=== PATIENT | female | born 1970 | race Caucasian/White ===

== ENCOUNTER → 2018-02-01 10:04 | Outpatient (CLI) | payer OTHER, SELFPAY ==
[2018-02-02 13:27] LABS: HPV Reflexed? NOT INDICATED
== END ==
PROVIDERS: Visit Provider Obstetrics & Gynecology
DX: Z12.4 Encounter for screening for malignant neoplasm of cervix (principal)
CPT/HCPCS: 88175; G0145

== ENCOUNTER → 2018-02-18 08:32 | Outpatient (CLI) | payer OTHER, SELFPAY ==
--- NOTE | 2018-02-18 08:37 | BI_ITS ---
MAMMOGRAPHY - BILATERAL SCREENING 3-D LUPE SYNTHESIS REASON FOR EXAM: Female, 47 years old. Bilateral Screening 3-D tomosynthesis PERTINENT HISTORY: No significant family history. TECHNIQUE: 2-D mammograms and 3-D Lupe synthesis of the breast (s) were performed. CAD was performed. COMPARISON: None. FINDINGS: The breast composition is heterogeneously dense that can obscure small breast masses. Scattered benign calcifications are seen. No dense spiculated masses or suspicious microcalcifications are identified. No architectural distortion is identified. There is no skin thickening or retraction. There has been no significant change since the prior study. BI/SCREENING MAMM (CAD), BILAT IMPRESSION: No mammographic signs of malignancy. Routine yearly mammograms recommended. ASSESSMENT CATEGORY: BIRADS Category 2: Benign. A letter regarding these results will be sent to the patient by the facility within 30 days. FOLLOW UP RECOMMENDATION: Yearly follow up mammogram recommended. (A) Approximately 10% of breast cancers are not detected by mammography. A normal mammogram should not delay biopsy of a clinically suspicious abnormality. Electronically Signed: Ruslan Marie MD at 10:00 EDT , Service support ,
== END ==
PROVIDERS: Visit Provider Obstetrics & Gynecology
DX: Z12.31 Encounter for screening mammogram for malignant neoplasm of breast (principal)
CPT/HCPCS: 77063; 77067

== ENCOUNTER → 2020-01-31 16:38 | Outpatient (CLI) | payer OTHER, SELFPAY ==
[2020-01-31 14:15] VITALS: BMI 37.5
[2020-02-09 01:04] LABS: HPV APTIMA, High Risk Negative (Negative)
== END ==
PROVIDERS: Referring Provider Nurse Practitioner Women's Health; Visit Provider Nurse Practitioner Women's Health
DX: Z12.4 Encounter for screening for malignant neoplasm of cervix (principal)
CPT/HCPCS: 87624; 88175; G0145

== ENCOUNTER → 2020-02-06 12:22 | Outpatient (CLI) | payer OTHER, SELFPAY ==
[2020-01-31 14:15] VITALS: BMI 37.5
--- NOTE | 2020-02-06 12:23 | BI_ITS ---
MAMMOGRAPHY - BILATERAL SCREENING REASON FOR EXAM: Female, 49 years old. Routine annual screening examination. PERTINENT HISTORY: Non-contributory. TECHNIQUE: Digital bilateral breast lupe (3D mammographic acquisition) in the CC and MLO projections. 2-D mediolateral oblique (MLO) and craniocaudad (CC) views of both breasts were obtained. CAD: Full Field Digital Mammography with Computer Added Detection was performed. COMPARISON: Comparison is made with prior study dated February 18, 2018 and December 27, 2012. FINDINGS: Breast Composition: The breasts are heterogeneously dense, which may obscure small masses. There are no dominant masses or suspicious calcifications. Stable benign-appearing bilateral axillary lymph nodes. No other significant abnormalities are identified. There has been no significant change since the prior study. BI/SCREEN MAMM (CAD) W/LUPE BILAT IMPRESSION: Stable bilateral screening mammogram. Yearly follow-up mammogram recommended. (A) ASSESSMENT CATEGORY: BIRADS Category 2: Benign. A letter regarding these results will be sent to the patient by the facility within 30 days. Approximately 10% of breast cancers are not detected by mammography. A normal mammogram should not delay biopsy of a clinically suspicious abnormality. [id number] Electronically Signed: Rodger Willson, at 14:15 EDT , Service support ,
--- NOTE | 2020-02-06 12:23 | US_ITS ---
STUDY: ULTRASOUND TRANSVAGINAL CLINICAL: Female, 49 years old. MENORRHAGIA W/ IRREGULAR CYCLE TECHNIQUE: Transvaginal COMPARISON: None. FINDINGS: Normal uterine size measuring 10.6 x 6.7 x 5.3 cm. The uterus is heterogeneous in echogenicity. There are 2 possible fibroids measuring 1.5 x 2.0 x 1.3 cm and 1.3 x 1.2 x 1.0 cm respectively. The endometrium is thickened measuring up to 16 mm, and is echogenic. There are no endometrial masses, and there is no fluid in the endometrial cavity. There are cervical nabothian cysts, the largest measuring 1.4 x 1.5 cm. Normal right ovary, measuring 3.1 x 2.5 x 2.1 cm. Left ovary measures 3.0 x 2.8 x 1.9 cm. There is a left ovarian cyst measuring 2.5 x 2.2 x 1.6 cm. There is no free fluid in the pelvis. Polycystic ovary disease: No. US/Pelvic (Non ) IMPRESSION: 2 possible uterine fibroids measuring 1.5 x 2.0 x 1.3 cm and 1.3 x 1.2 x 1.0 cm respectively. Thickened echogenic endometrium measuring up to 16 mm. Cervical nabothian cysts, the largest measuring 1.4 x 1.5 cm. There is a left ovarian cyst measuring 2.5 x 2.2 x 1.6 cm. Electronically Signed: Taco Potter MD at 19:43 EDT , Service support ,
--- NOTE | 2020-02-06 12:23 | US_ITS ---
STUDY: ULTRASOUND TRANSVAGINAL CLINICAL: Female, 49 years old. MENORRHAGIA W/ IRREGULAR CYCLE TECHNIQUE: Transvaginal COMPARISON: None. FINDINGS: Normal uterine size measuring 10.6 x 6.7 x 5.3 cm. The uterus is heterogeneous in echogenicity. There are 2 possible fibroids measuring 1.5 x 2.0 x 1.3 cm and 1.3 x 1.2 x 1.0 cm respectively. The endometrium is thickened measuring up to 16 mm, and is echogenic. There are no endometrial masses, and there is no fluid in the endometrial cavity. There are cervical nabothian cysts, the largest measuring 1.4 x 1.5 cm. Normal right ovary, measuring 3.1 x 2.5 x 2.1 cm. Left ovary measures 3.0 x 2.8 x 1.9 cm. There is a left ovarian cyst measuring 2.5 x 2.2 x 1.6 cm. There is no free fluid in the pelvis. Polycystic ovary disease: No. US/Transvaginal Non- IMPRESSION: 2 possible uterine fibroids measuring 1.5 x 2.0 x 1.3 cm and 1.3 x 1.2 x 1.0 cm respectively. Thickened echogenic endometrium measuring up to 16 mm. Cervical nabothian cysts, the largest measuring 1.4 x 1.5 cm. There is a left ovarian cyst measuring 2.5 x 2.2 x 1.6 cm. Electronically Signed: Taco Potter MD at 19:43 EDT , Service support ,
== END ==
PROVIDERS: Referring Provider Nurse Practitioner Women's Health; Visit Provider Nurse Practitioner Women's Health
DX: N92.1 Excessive and frequent menstruation with irregular cycle (principal); Z12.31 Encounter for screening mammogram for malignant neoplasm of breast
CPT/HCPCS: 76830; 76856; 77063; 77067

== ENCOUNTER 2020-03-12 10:27 | Day surgery (SDC) | payer OTHER, SELFPAY ==
[2020-02-23 13:27] VITALS: BMI 37.5
[2020-02-28 08:47] VITALS: BMI 37.5
[2020-03-12] VITALS (7 sets, daily range): BP systolic 143–169; BP diastolic 85–105; PULSE 68–97; RESP 16–18; TEMP 36.9–37.3; O2SAT 97–100; BMI 37.3
--- NOTE | 2020-03-12 06:33 | PCM.HPOB.BLA ---
- Problem List (1) Menorrhagia with irregular cycle Status: Acute Comment: d and c hysterosocpy kate ablation. 11 cm uterus. mele History and Physical Date of Admission: 03/12/20 Intake Vital Signs 02/23/20 Height 5 ft 8 in 02/23/20 Weight: 248 lb 02/23/20 BMI 37.7 02/23/20 BP 130/74 H Intake Visit Reasons: preop D&C Wrapper Rewinder Required: No Is patient in pain?: No Allergies No Known Allergies Allergy (Verified 02/23/20 11:45) Medications norethindrone acetate 5 mg tablet 5 mg PO .COMPLEX #45 tab 02/24/20 [Rx Confirmed 02/24/20] Is last menstrual period known: No Post menopausal: No Patient : No : No PFSH Surgical History History of tonsillectomy (Acute) History of tubal ligation (Acute) Family History Grandfather Heart disease Mother Heart disease Social History (Updated 02/25/20 @ 06:[address] 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 She was evaluated by Stacia Arias and had been unable to get cervical sampling due to stenosis. Uterus appears mildly enlarged with 2 small fibroids under 2 cm each and a thickened lining overall 11 cm uterine size. She has cycles that can be irregular and heavy lasting 7 to 10 days. Female Reproductive History Cycle Length: 21-35 Bleeding Duration: 7 Questions: Metorrhagia: No, Sexually active: Yes, Dyspareunia: No, PCB: No Pregancy History 3 Elective abortions Hx Para 2 Spontaneous abortions 1 Hx # Term Pregnancies 2 Ectopic pregnancies Hx # Pregnancies Multiple births # of living children 2 Past Pregnancies Del. Date Name GA/Weeks Outcome Route Bth Weight Infant Gen [facility] FOB 11/02/00 [place] Male 10/21/07 [place] Female ROS Const Constitutional: Denies fatigue, fever(s), headache(s), increased appetite, poor appetite, weight gain or weight loss : Reports as per HPI; denies difficulty urinating, painful urination, urinary frequency, urinary incontinence, urinary hesitancy, urinary urgency, vaginal discharge, vaginal dryness, vaginal odor or vaginal itching Exam Const General: cooperative, healthy appearing, comfortable, no acute distress, well developed Nutritional Appearance: average body habitus Orientation: alert HENMT Head: normal to inspection, normocephalic Ears: hearing grossly normal bilaterally, external ears normal Nose: external nose normal, nares normal Face and sinus: normal facial exam Neck Neck: normal visual inspection, no lymphadenopathy, trachea midline Thyroid: thyroid normal Resp Effort & Inspection: normal respiratory effort General: bladder normal to palpation External Female Exam: normal external appearance, normal appearance of the urethra Urethra: normal appearance of the urethra, normal palpation Speculum Exam - Vagina: normal appearance of the vagina, vaginal bleeding Speculum Exam - Cervix: normal appearance of the cervix, nontender Bimanual Exam- Vagina & Uterus: normal bimanual exam, uterine size normal, bladder normal to palpation, uterine shape normal, No cervical tenderness, uterine mobility normal, uterine consistency normal, normal cervical palpation, uterus non-tender Bimanual Exam- Adnexa, other: normal adnexae, adnexae mobile, no adnexal masses, pelvic support normal Pelvic Support: normal OB/External & Speculum: vaginal bleeding Speculum Exam: vaginal bleeding Musc Other: gross motor intact no deficits, full bilateral strength Skin General: no rashes or lesions noted Neuro Motor: muscle tone normal throughout Assessment & Plan Problems 1. Menorrhagia with irregular cycle N92.1 d and c hysterosocpy kate ablation Plan Both medical and surgical options were discussed with the patient and patient wishes to proceed with ablation. It was discussed that due to her cervical stenosis we were unable to sample the lining prior to ablation therefore if her D&C specimen comes back abnormal she may need additional surgery or treatments. Patient wishes to proceed with ablation.After discussing the patient's diagnosis and treatment plan options, patient wishes to proceed with surgical management. I have discussed with the patient the risks, benefits, and alternatives of the procedure which include but are not limited to risks of anesthesia, bleeding, infection, possible damage to bowel, bladder, or surrounding vasculature which could lead to additional surgery to evaluate any complications. Patient agrees to procedure and wishes to proceed. ACOG/uptodate references given for additional information regarding procedure. Medications Refilled: norethindrone acetate (Aygestin) 5 mg PO tid until bleeding stops X 24 hr then bid to finish Rx 45 tabs 0RF Coding Level of Care Code Off vis,est,level 4 Diagnoses Menorrhagia with irregular cycle N92.1 UPDATE- I have seen the patient and performed any clinically relevant updates to the history and physical exam. Marjorie Rivero MD
[2020-03-12 10:48] LABS: Internal QC Validated? YES +Cl - CLEAR BKGD; Pregnancy, Urine Negative Negative
[2020-03-12 11:05] LABS: Hematocrit 38.1 % (37-47); Hemoglobin 12.1 g/dL (12.0-15.0); Mean Corp Hgb Conc 31.8 g/dL (32-36); Mean Corpuscular Hgb 25.6 pg (27.0-32.0); Mean Corpuscular Volume 80.5 fL (81-99); Mean Platelet Vol. 9.9 fl (6.2-12.0); Platelet Count 365 K/mm3 (150-450); RBC Distribution Width CV 14.3 % (11.6-14.6); RBC Distribution Width SD 41.2 fl (35.1-43.9); Red Blood Count 4.73 M/mm3 (4.2-5.4); White Blood Count 7.9 K/mm3 (4.4-11.0)
[2020-03-12] MEDS: Lactated Ringers 1,000 ML 100 ML IV (11:06)
--- NOTE | 2020-03-12 11:11 | OP.PCM_ITS ---
Problem List (1) Menorrhagia with irregular cycle Status: Acute Comment: d and c hysterosocpy carole ablation. 11 cm uterus. leo Report of Operation Date of Procedure: 03/12/20 Pre-Operative Diagnosis: AUB Post-Operative Diagnosis: same Surgery/Procedure Performed:: d and c hysteroscopy carole Description of Surgical Findings:: polypoid thickened lining Type of Anesthesia:: Local MAC Special Medications: none Specimen's removed: emc Drains: none Estimated Blood Loss (mL): minimal Fluids Replaced: crystalloid Description of Procedure: Patient was prepped and draped in a normal sterile fashion under MAC anesthesia. A weighted speculum was placed in the vagina and the anterior lip of the cervix was grasped with a single-tooth tenaculum. A paracervical block was placed with 1% lidocaine. Cervix was progressively dilated to allow passage of a 5 mm hysteroscope. The lining was fully visualized and noted to have a thickened polypoid lining. Uterine sounded to 10 cm. Curettage was performed and large amount of tissue was removed, sent to pathology. The Carole device was opened and the cavity length was found to be 5.5 cm. Device was inserted into the u terus and balloon inflated and device deployed. Integrity of the cavity was confirmed and a 2 minute treatment cycle was completed without complication. All instruments were removed from the vagina and excellent hemostasis was noted. Patient was awoken and taken to recovery in stable condition. Grafts/Implants Used: none - Complications none - Admit VTE Documentation VTE Present on Admission: No VTE Mechan Device Prophylaxis: SCD's Multi Select Codes - Urinary/Genital Urinary/Genital CPT Codes: 55743 Carole/Novasure, 16096 Hysteroscopy,EMC, Polypectomy
--- NOTE | 2020-03-12 11:13 | PCM.DC.D&C ---
Discharge Diet: No Restrictions Discharge Activity: Return to Normal Activity, May Shower, May Take a Tub Bath Allergies/Adverse Reactions: Allergies No Known Allergies Allergy (Verified 03/12/20 10:45) Medications to take at Discharge Norethindrone Acetate 5 mg PO DAILY 03/05/20 Orders to be completed after discharge: Type & Screen - PAT ONLY Time Frame: 03/12/20, Facility: [facility], Location: Laboratory Primary Care Physician: Care Physician,No Primary [Primary Care Provider] - Test Results: Test results from this visit will be discussed in further detail at your follow-up appointment, if applicable. Please Follow Up With: Marjorie Rivero MD - [phone]
--- NOTE | 2020-03-12 12:10 | EMB_PTH ---
PATIENT: LORETTA LEMUS LOC: [facility] – [place] U#:[id number] AGE/SX: 49/F ROOM: RE03/12/[address]: Dr. Marjorie Rivero MD : 1970 BED: DIS: 03/12/2020 SPEC #: [id number] RECD: 03/12/20 14:32 STATUS: FARRAH IVA #: [id number] AVELINO: 03/12/20 12:[address]: Marjorie Rivero DEPT: SURGICAL PATHOLOGY RECD BY: Esteban Villareal ENTERED: 03/13/20 08:52 SP TYPE: ENDOM BX/C GINA DR: No Primary Care Phys Tissues: Endometrium, NOS Procedures: Surgery Specimen Level IV HEADER OPERATION: Hysteroscopy, D & C, Tyrell PRE-OP DIAGNOSIS: Abnormal uterine bleeding TISSUE SUBMITTED: Endometrial curettage MICROSCOPIC DIAGNOSIS Endometrial curettings: Extensive exogenous hormone effects. Focal area of secretory endometrium and blood clots. SJ:franck 03/14/20 MICROSCOPIC DESCRIPTION Slides are reviewed. GROSS DESCRIPTION Received in fixative is one container labeled with the patient's name and designated C. The specimen consists of multiple fragments of bahena hemorrhagic soft tissue mixed with polypoid tissue that in aggregate measure 4 x 4 x 1.5 cm. The entire specimen is submitted in six cassettes. / CLIFTON:franck 03/13/20 TC:5 CPT: 49153
[2020-03-12] MEDS: HYDROcodone Bitartrate/Apap 5/325 Tablet PO ×2 (13:48→13:59)
== END 2020-03-12 14:16 | disposition home or self-care (01) ==
LOC: SDC 10:27 → AC 10:28
PROVIDERS: Anesthesiology; Referring Provider Obstetrics & Gynecology; Visit Provider Obstetrics & Gynecology
PROC: 0U5B8ZZ Destruction of Endometrium, Via Natural or Artificial Opening Endoscopic (ICD-10-PCS; CPT 58558; principal; 2020-03-12 11:55)
DX: N92.1 Excessive and frequent menstruation with irregular cycle (principal); D25.9 Leiomyoma of uterus, unspecified; Z79.3 Long term (current) use of hormonal contraceptives; Z98.51 Tubal ligation status; Z82.49 Family history of ischemic heart disease and other diseases of the circulatory system
CPT/HCPCS: 58563; 81025; 85027; 86850; 86900; 86901; 87635; 88305; 94799; J7120; J2405; U0003

== ENCOUNTER → 2021-02-10 08:34 | Outpatient (CLI) | payer OTHER, SELFPAY ==
[2020-03-28 16:32] VITALS: BMI 37.3
--- NOTE | 2021-02-10 08:36 | BI_ITS ---
MAMMOGRAPHY - BILATERAL SCREENING REASON FOR EXAM: Female, 50 years old. Routine annual screening examination. PERTINENT HISTORY: Non-contributory. TECHNIQUE: Digital bilateral breast lupe (3D mammographic acquisition) in the CC and MLO projections. 2-D mediolateral oblique (MLO) and craniocaudad (CC) views of both breasts were obtained. CAD: Full Field Digital Mammography with Computer Added Detection was performed. COMPARISON: Comparison is made with prior study dated 02/06/2020 and 02/18/2018. FINDINGS: Breast Composition: The breasts are heterogeneously dense, which may obscure small masses. There are no dominant masses or suspicious calcifications. Stable small benign-appearing bilateral axillary lymph nodes. No other significant abnormalities are identified. There has been no significant change since the prior study. BI/SCRN MAMM (CAD)W/LUPE BILAT IMPRESSION: Stable bilateral screening mammogram. Yearly follow-up mammogram recommended. (A) ASSESSMENT CATEGORY: BIRADS Category 2: Benign. A letter regarding these results will be sent to the patient by the facility within 30 days. Approximately 10% of breast cancers are not detected by mammography. A normal mammogram should not delay biopsy of a clinically suspicious abnormality. [id number] Electronically Signed: Rodger Willson MD at 9:17 EDT , Service support ,
== END ==
PROVIDERS: Referring Provider Internal Medicine; Visit Provider Internal Medicine
DX: Z12.31 Encounter for screening mammogram for malignant neoplasm of breast (principal)
CPT/HCPCS: 77063; 77067

== ENCOUNTER → 2022-02-20 | Outpatient (CLI) | payer OTHER, SELFPAY ==
--- NOTE | 2022-02-20 10:55 | BI_ITS ---
MAMMOGRAPHY - BILATERAL SCREENING REASON FOR EXAM: Female, 51 years old. Routine annual screening examination. PERTINENT HISTORY: Non-contributory. TECHNIQUE: Digital bilateral breast lupe (3D mammographic acquisition) in the CC and MLO projections. 2-D mediolateral oblique (MLO) and craniocaudad (CC) views of both breasts were obtained. CAD: Full Field Digital Mammography with Computer Added Detection was performed. COMPARISON: Comparison is made with prior study dated 02/10/2021 and 02/06/2020. FINDINGS: Breast Composition: The breasts are heterogeneously dense, which may obscure small masses. There are no dominant masses or suspicious calcifications. Stable small benign appearing bilateral axillary lymph nodes. No other significant abnormalities are identified. There has been no significant change since the prior study. BI/SCRN MAMM (CAD)W/LUPE BILAT IMPRESSION: Stable bilateral screening mammogram. Yearly follow-up mammogram recommended. (A) ASSESSMENT CATEGORY: BIRADS Category 2: Benign. A letter regarding these results will be sent to the patient by the facility within 30 days. Approximately 10% of breast cancers are not detected by mammography. A normal mammogram should not delay biopsy of a clinically suspicious abnormality. [id number] Electronically Signed: Rodger Willson MD at 12:51 EDT ,
== END | disposition home or self-care (01) ==
LOC: OPBI 10:54
PROVIDERS: PCP Internal Medicine; Visit Provider Internal Medicine
DX: Z12.31 Encounter for screening mammogram for malignant neoplasm of breast (principal)
CPT/HCPCS: 77063; 77067

== ENCOUNTER → 2022-09-09 | Outpatient (CLI) | payer OTHER, SELFPAY ==
--- NOTE | 2022-09-09 06:55 | CT_ITS ---
STUDY: CT MAXILLOFACIAL SINUSES REASON FOR EXAM: Female, 51 years old. CHRONIC SINUSITIS RADIATION DOSAGE (If Supplied By Facility): CTDIvol = ( 33.06 ) mGy, DLP = ( 817.32 ) mGycm TECHNIQUE: The patient was scanned in a multi detector CT scanner. High resolution axial imaging was performed without the administration of intravenous contrast material. Sagittal and coronal images were reconstructed. Individualized dose optimization techniques were used for this CT. COMPARISON: None. FINDINGS: Small bilateral submental lymph nodes. FRONTAL SINUSES: Opacification of the frontal sinuses. ETHMOIDAL SINUSES: Opacification of the ethmoid sinuses bilaterally. MAXILLARY SINUSES: Mucosal thickening of the maxillary sinuses bilaterally more prominent on the right side. SPHENOIDAL SINUSES: Mild degree of mucosal thickening of the sphenoid sinuses. There is compromise of the bilateral maxillary infundibula due to mucosal hypertrophy worse on the right side. Normal bilateral middle turbinates. Normal bilateral inferior turbinates. Normal midline nasal septum. There is patency of the bilateral nasal airways. The visualized osseous structures are normal. The visualized bilateral orbital contents are normal. CT/Sinus/Facial Bone IMPRESSION: SMITH sinusitis. Electronically Signed: Rodger Willson MD at 14:43 EST ,
== END | disposition home or self-care (01) ==
PROVIDERS: PCP Internal Medicine; Referring Provider Otolaryngology; Visit Provider Otolaryngology
DX: J32.8 Other chronic sinusitis (principal); J33.0 Polyp of nasal cavity
CPT/HCPCS: 70486

== ENCOUNTER 2022-12-28 09:55 | Day surgery (SDC) | payer OTHER, SELFPAY ==
[2022-12-24 13:52] LABS: Hematocrit 40.5 % (37-47); Hemoglobin 13.7 g/dL (12.0-15.0); Mean Corp Hgb Conc 33.8 g/dL (32-36); Mean Corpuscular Hgb 28.4 pg (27.0-32.0); Mean Platelet Vol. 9.4 fl (6.2-12.0); Platelet Count 315 K/mm3 (150-450); RBC Distribution Width CV 12.8 % (11.6-14.6); RBC Distribution Width SD 38.5 fl (35.1-43.9); Red Blood Count 4.82 M/mm3 (4.2-5.4); White Blood Count 9.8 K/mm3 (4.4-11.0)
[2022-12-24 14:15] LABS: Anion Gap 8 (5-15); BUN 20 mg/dL (7-18); BUN/Creat Ratio 28.2 RATIO (10-20); Calcium,Total 9.1 mg/dL (8.5-10.1); Chloride 108 mmol/L (98-107); Creatinine, Serum 0.71 mg/dL (0.55-1.02); EST Glomerular Filtration Rate 92 mL/min (>60); Est Glom Filt Rate - Afr Amer 112 mL/min (>60); Glucose 100 mg/dL (74-106); Potassium 3.9 mmol/L (3.5-5.1); Sodium Level 139 mmol/L (136-145)
--- NOTE | 2022-12-28 | ETH_PTH ---
PATIENT: LORETTA LEMUS LOC: [facility] [place] U[place][id number] AGE/SX: 52/F ROOM: RE12/28/[address]: Dr. Rufus Garcia MD : 1970 BED: DIS: 12/28/2022 SPEC #: [id number] RECD: 12/28/22 14:13 STATUS: FARRAH REJason #: [id number] AVELINO: 12/28/22 00:[address]: Rufus Garcia DEPT: SURGICAL PATHOLOGY RECD BY: Regulo Hernandez ENTERED: 12/29/22 07:45 SP TYPE: ETH TISS OTHR DR: Dr. Jazmin Mann DO Tissues: A - Ethmoid sinus, NOS B - Ethmoid sinus, NOS Procedures: Decalcification bone/plaque Surgery Specimen Level III HEADER OPERATION: Functional endoscopic sinus surgery, Navigation PRE-OP DIAGNOSIS: Nasal congestion, deviated nasal septum, polyp of nasal cavity TISSUE SUBMITTED: A ? Right sinus contents, B ? Left sinus contents MICROSCOPIC DIAGNOSIS A. Right sinus contents, curettings: Consistent with chronic sinusitis. Fragments of bone with no pathologic change. B. Left sinus contents, curettings: Consistent with chronic sinusitis. Fragments of bone with no pathologic change. AM:franck 12/31/2022 MICROSCOPIC DESCRIPTION Slides are reviewed. GROSS DESCRIPTION A - Received in fixative is one container labeled with the patient's name and designated right sinus contents. The specimen consists of multiple irregular fragments of bahena soft tissue mixed with possible fragments of bone that in aggregate measure 2.5 x 1.0 x 0.1 cm. The specimen is totally submitted in one cassette after decalcification. B - Received in fixative is one container labeled with the patient's name and designated left sinus contents. The specimen consists of multiple irregular fragments of bahena soft tissue mixed with possible fragments of bone that in aggregate measure 2.5 x 1.5 x 0.2 cm. The specimen is totally submitted in one cassette after decalcification. / SJ:franck 12/29/2022 TC:3 CPT: 32788 x2, 64822 x2
[2022-12-28] MEDS: Lactated Ringers 1,000 ML 15 ML IV (10:25)
[2022-12-28] MEDS: Oxymetazoline 0.05% 1 SPRAY SPRAY.BTL NASAL (10:27)
[2022-12-28 10:29] VITALS: BP 143/83; PULSE 80; RESP 18; TEMP 36.8; O2SAT 99; BMI 39.0
[2022-12-28] MEDS: Lidocaine 1% /Epi 1:100 (20ml) 20 ML Vial (11:55)
[2022-12-28] MEDS: Oxymetazoline 0.05% 1 SPRAY SPRAY.BTL 15 SPRAY (11:57)
--- NOTE | 2022-12-28 12:19 | PCM.DC.SUM ---
Providers Primary Care Physician: Dr. Jazmin Mann DO Reason For Visit: FESS W NAVIGATION Medications at Discharge Home Medications lansoprazole 30 mg capsule,delayed release 30 mg PO DAILY 12/23/22 lisinopril 20 mg tablet 20 mg PO BID 12/23/22 Weight / BMI Weight Weight: 116.573 kg Body Mass Index (BMI) 39.0 ABG / Lab / Microbiology Data Result Diagrams: 12/24/22 13:38 12/24/22 13:38 D/C Instructions Discharge Diet: No restrictions Additional Activity Instructions: No nose blowing Additional Instructions: Start antibiotics tonight. Start irrigation tomorrow. Irrigate 4x/day Please Follow Up With: Rufus Garcia MD When: next week Meaningful Use Info Meaningful Use Diagnoses (Choose all that apply): None applicable Discharge Plan Admission Attending Provider: Rufus Garcia Primary Care Provider: Jazmin Mann Discharge Orders/Prescriptions Prescriptions: No Action lisinopril 20 mg Tablet 20 mg PO BID lansoprazole 30 mg Capsule,Delayed Release(Dr/Ec) 30 mg PO DAILY Referrals / Follow Up: Jazmin Mann DO [Primary Care Provider] - Disposition Disposition (needs filled in before D/C Order can be placed): Home, Self Care
--- NOTE | 2022-12-28 12:20 | PCM.OPRPT ---
Report of Operation Date of Procedure: 12/28/22 Pre-Operative Diagnosis: chronic sinusitis with nasal polyposis Post-Operative Diagnosis: same Surgery/Procedure Performed:: bilateral total ethmoidectomy bilateral maxillary antrostomy use of navigation Surgeon: Rufus Garcia Type of Anesthesia: General Anesthesiologist: Kofi Skelton Estimated Blood Loss (mL): 30 cc Description of Procedure: The patient was taken to the operating room on 12/28/2022. The patient was placed in the supine position on the operating table. The patient was given sufficient general endotracheal anesthesia. The head of bed was elevated 30 degrees. The navigation system was placed and verified per protocol and found to be accurate. 0 and 30 degrees rigid nasal endoscopes were used throughout the entire case. The middle turbinate uncinate process and polyps were injected with 1% lidocaine with epinephrine bilaterally. The right middle turbinate was medialized with a [place] elevator. Polyp was removed from the middle meatus using a sinus shaver. A ball-tipped sinus seeker was placed into the patient's maxillary sinus. The maxillary antrostomy was created with a backbiter. The uncinate process was taken down using a microdebrider. Next, the ethmoid bulla was opened with a small curette. Anterior and posterior ethmoidectomy were then carried out using curette, sinus shaver and 45 degree [place] Nando forceps. Ethmoid cells were verified for relation to the skull base and orbit prior to being entered with the navigation system. I then placed Afrin pledgets into the sinonasal cavity. Next attention was turned to the left side. The middle turbinate was medialized with a [place] elevator. A large polyp was removed from the middle meatus using a sinus shaver. The uncinate process was taken down using a sinus shaver. In doing so, the maxillary antrostomy was created and expanded with a backbiter. The ethmoid bulla was opened with a small curette. Anterior and posterior ethmoidectomy were then carried out using a sinus shaver, curette and [place] Nando forceps. Ethmoid cells were verified for relation to the skull base and orbit prior to being entered with the navigation system. Hemostasis was then achieved using Afrin pledgets. The pledgets were then removed bilaterally and Lb powder was applied bilaterally for absolute hemostasis. The procedure was then terminated. The patient was then awoken and brought to the recovery room in stable condition blood loss less than 30 cc replacement none. Sponge, needle, instrument count were correct at the end of the procedure.
[2022-12-28 12:34] VITALS: BP 122/68; BP 143/83; PULSE 63; RESP 16; TEMP 36.4; O2SAT 68
[2022-12-28 12:45] VITALS: BP 136/106; BP 143/83; PULSE 62; RESP 16; O2SAT 94
[2022-12-28 13:02] VITALS: BP 129/76; BP 143/83; PULSE 58; RESP 16; TEMP 36.5; O2SAT 95
[2022-12-28 13:30] VITALS: BP 143/83
== END 2022-12-28 13:39 | disposition home or self-care (01) ==
LOC: SDC 09:56 → AC 09:56
PROVIDERS: PCP Internal Medicine; Referring Provider Otolaryngology; Visit Provider Otolaryngology
PROC: (CPT 31256; principal; 2022-12-28 11:00)
DX: J32.9 Chronic sinusitis, unspecified (principal); R09.81 Nasal congestion; J34.2 Deviated nasal septum; J33.0 Polyp of nasal cavity; K21.9 Gastro-esophageal reflux disease without esophagitis; I10 Essential (primary) hypertension; Z90.89 Acquired absence of other organs
CPT/HCPCS: 31256; 31255; 30110; 00160; 36415; 80048; 85027; 88304; 88305; 88311; 93005; J7120; J2405

== ENCOUNTER → 2023-07-23 | Outpatient (CLI) | payer OTHER, SELFPAY ==
--- NOTE | 2023-07-23 09:06 | BI_ITS ---
MAMMOGRAPHY - BILATERAL SCREENING 3-D TOMOSYNTHESIS REASON FOR EXAM: Female, 52 years old. Routine annual screening mammogram. PERTINENT HISTORY: No significant family history. TECHNIQUE: 2-D mammograms and 3-D Tomosynthesis of the breast (s) were performed. CAD was performed. COMPARISON: February 20, 2022, February 10, 2021 FINDINGS: The breast composition is composed of scattered fibroglandular density. Stable normal lymph nodes and scattered benign calcifications. No dominant masses, suspicious microcalcifications, asymmetries, skin thickening or nipple retraction BI/SCRN MAMM (CAD)W/LUPE BILAT IMPRESSION: No interval change and no mammographic signs of malignancy. Routine yearly mammogram recommended. ASSESSMENT CATEGORY: BIRADS Category 2: Benign. A letter regarding these results will be sent to the patient by the facility within 30 days. FOLLOW UP RECOMMENDATION: Yearly follow up mammogram recommended. (A) Approximately 10% of breast cancers are not detected by mammography. A normal mammogram should not delay biopsy of a clinically suspicious abnormality. Electronically Signed: Gerardo Alaniz MD at 14:12 EST ,
--- OUTSIDE RECORDS SUMMARY | 2023-07-23 09:43 | XMS RPT_ITS | CCD ---
Author Name Unknown Address [address] [place] [address] Organization [facility] Care Team Providers Care Research Mechanic Name Role Phone Jazmin Mann Unavailable Celsa Arreaga Unavailable Unavailable Anoop Medina Unavailable Unavailable Anoop White Unavailable Unavailable Winifred Cueva Unavailable Unavailable Jazmin Mann DO Unavailable Winifred Cueva LPN Unavailable Unavailable Anoop White LPN Unavailable Unavailable Jose Levin MD Unavailable Unavailable Unavailable Celsa Arreaga CMA Unavailable Unavailable Rufus Garcia MD Unavailable Jazmin Mann DO Unavailable [phone] Fadumo FRAZIER K[place]ginoa Unavailable Unavailable Padmini Elder LPN Unavailable Unavailable Dr. Kishan Weldon Unavailable Jazmin Mann DO Attending Unavailable Jazmin Mann DO Consulting Unavailable [place] ONAH, Bowen Unavailable Unavailable Medications Completed/Discontinued Medications Medication Drug Class(es) Dates Sig (Normalized) Sig (Original) 200 actuat albuterol 0.09 mg/actuat dry powder inhaler (20 sources) beta2-Adrenergic Agonist Start: 08-09-2020 take 2 puff(s) by inhalation every six hours as needed for cough ProAir RespiClick 108 (90 Base) MCG/ACT Inhalation Aerosol Powder Breath Activated 2 (two) Puff q 6hr prn cough for 0 days Quantity: 1 {Inhalation} Refills: 0 Ordered: 09-Aug-2020 Winifred Cueva LPN Start : 09-Aug-2020 Active azelastine hydrochloride 0.137 mg/actuat metered dose nasal spray (19 sources) Histamine-1 Receptor Antagonist Start: 03-03-2021 take 1 spray(s) nasal route once daily Azelastine HCl 0.1 % Nasal Solution 1 (one) [place] each nostril daily for 0 days Quantity: 1 {[place]} Refills: 2 Ordered: 21-Jan-2022 Padmini Elder LPN Start : 03-Mar-2021 Active azithromycin 250 mg oral tablet (7 sources) Macrolide Antimicrobial Start: 08-06-2022 take 1 tablet by mouth once daily Zithromax Z-Jeremi 250 mg oral tablet tad tablet qd for 0 days Quantity: 1 {Unspecified} Refills: 0 Ordered: 06-Aug-2022 Jazmin Mann DO, DO, Kathleen Start : 06-Aug-2022 Active Comments: dispense one package Problems Active Problems Problem Classification Problem Date Documented Da te Episodic/Chronic Administrative/social admission (20 sources) Patient encounter status; Translations: [Nutritional counseling] 08-09-2020 Episodic Allergic reactions (20 sources) Allergic condition; Translations: [Allergies] 12-30-2020 Episodic Disorders of lipid metabolism (20 sources) Hyperlipidemia; Translations: [Hyperlipidemia] 03-03-2021 Chronic Past or Other Problems Problem Classification Problem Date Documented Da te Episodic/Chronic Other screening for suspected conditions (not mental disorders or infectious disease) (7 sources) Elevated C-reactive protein; Translations: [Elevated high sensitivity C-reactive protein] 02-09-2020 Results Test Name Value Interpretation Reference Range Facil ity Vital Signs Date Time Vital Sign Value Performing Clinician Facility 08-06-2022 07:21-0500 Body height 170.18 cm [facility]; [facility] Work Phone: 08-06-2022 07:21-0500 Body mass index (BMI) [Ratio] 39.8 kg/m2 [facility]; [facility] Work Phone: 08-06-2022 07:21-0500 Body surface area Derived from formula 2.24 m2 [facility]; [facility] Work Phone: 08-06-2022 07:21-0500 Body temperature 97.3 [degF] [facility]; [facility] Work Phone: 08-06-2022 07:21-0500 [facility] Work Phone: 08-06-2022 07:21-0500 Diastolic blood pressure 80 mm[Hg[facility]; [facility] Work Phone: Encounters Encounter Date Encounter Type Care Provider Facility Start: 05-20-2023 End: 05-20-2023 Annotation/Addendum Jazmin Johnathan DO Work Phone: [facility] Start: 08-06-2022 End: 08-06-2022 Office outpatient visit 15 minutes Jazmin Johnathan DO Work Phone: [facility] Start: 08-06-2022 Review Jazmin Fearo n DO Work Phone: [facility] Start: 07-21-2022 ambulatory Jazmin Johnathan DO [facility] Start: 01-30-2022 End: 01-30-2022 Office outpatient visit 10 minutes Jazmin Johnathan DO Work Phone: [facility] Start: 01-30-2022 Review Jazmin Fearo n DO Work Phone: [facility] Start: 01-21-2022 End: 01-21-2022 Office outpatient visit 25 minutes Jazmin Johnathan DO Work Phone: [facility] Start: 04-24-2021 End: 04-24-2021 Office outpatient visit 5 minutes Jazmin Johnathan DO Work Phone: [facility] Start: 03-03-2021 End: 03-03-2021 Office outpatient visit 25 minutes Jazmin Johnathan DO Work Phone: [facility] Start: 01-22-2021 End: 01-22-2021 Phone Encounter Jazmin Johnathan DO Work Phone: [facility] Start: 12-30-2020 End: 12-30-2020 Office outpatient visit 15 minutes Jazmin Johnathan DO Work Phone: [facility] Start: 12-30-2020 Review Jazmin Lloyd sanjuana DO Work Phone: [facility] Start: 08-09-2020 End: 08-09-2020 Office outpatient visit 15 minutes Jazmin Mann [facility] Start: 08-09-2020 [facility] Start: 05-24-2020 End: 05-24-2020 Office outpatient visit 10 minutes Jazminkellen Mann [facility] Start: 05-03-2020 End: 05-03-2020 Office outpatient visit 25 minutes Jazmin Mann [facility] Start: 02-09-2020 End: 02-09-2020 Office outpatient visit 15 minutes Jazminkellen Mann [facility] Start: 01-19-2020 End: 01-19-2020 Office outpatient new 30 minutes Jazmin Mann [facility] Medicine Start: 01-19-2020 End: 01-19-2020 Patient encounter status Jazmin Mann DO Work Phone: [facility] Work Phone: Patient encounter status Celsa Arreaga [facility]; [facility] Work Phone: Patient encounter status Elie Thorne [facility]; [facility] Work Phone: Patient encounter status Anoop White [facility]; [facility] Work Phone: [facility]; [facility] Work Phone: Procedures Date Procedure Procedure Detail Performing Clinician Start: 12-28-2022 End: 12-28-2022 Operative Report Procedure Note: See Note; NOTES: [facility] Medical Records Department [address] [place] [address] Operative Report 12/28/22 1220 MR#: [id number] Acct: [id number] Name: LORETTA LEMUS ISAMAR Rep #: [id number] : 1970 52 From: Rufus Garcia MD PCP: Dr. Jazmin Mann, DO Status:[facility] Location: [address] Report of Operation Date of Procedure: 12/28/22 Pre-Operative Diagnosis: chronic sinusitis with nasal polyposis Post-Operative Diagnosis: same Surgery/Procedure Performed:: bilateral total ethmoidectomy bilateral maxillary antrostomy use of navigation Surgeon: Rufus Garcia Type of Anesthesia: General Anesthesiologist: Kofi Skelton Estimated Blood Loss (mL): 30 cc Description of Procedure: The patient was taken to the operating room on 12/28/2022. The patient was placed in the supine position on the operating table. The patient was given sufficient general endotracheal anesthesia. The head of bed was elevated 30 degrees. The navigation system was placed and verified per protocol and found to be accurate. 0 and 30 degrees rigid nasal endoscopes were used throughout the entire case. The middle turbinate uncinate process and polyps were injected with 1% lidocaine with epinephrine bilaterally. The right middle turbinate was medialized with a [place] elevator. Polyp was removed from the middle meatus using a sinus shaver. A ball-tipped sinus seeker was placed into the patient's maxillary sinus. The maxillary antrostomy was created with a backbiter. The uncinate process was taken down using a microdebrider. Next, the ethmoid bulla was opened with a small curette. Anterior and posterior ethmoidectomy were then carried out using curette, sinus shaver and 45 degree Blakesley Nando forceps. Ethmoid cells were verified for relation to the skull base and orbit prior to being entered with the navigation system. I then placed Afrin pledgets into the sinonasal cavity. Next attention was turned to the left side. The middle turbinate was medialized with a [place] elevator. A large polyp was removed from the middle meatus using a sinus shaver. The uncinate process was taken down using a sinus shaver. In doing so, the maxillary antrostomy was created and expanded with a backbiter. The ethmoid bulla was opened with a small curette. Anterior and posterior ethmoidectomy were then carried out using a sinus shaver, curette and Blakesley Nando forceps. Ethmoid cells were verified for relation to the skull base and orbit prior to being entered with the navigation system. Hemostasis was then achieved using Afrin pledgets. The pledgets were then removed bilaterally and Lb powder was applied bilaterally for absolute hemostasis. The procedure was then terminated. The patient was then awoken and brought to the recovery room in stable condition blood loss less than 30 cc replacement none. Sponge, needle, instrument count were correct at the end of the procedure. 12/28/22 1223 <Electronically signed by Rufus Garcia MD> Cosigner Signature (if applicable): CC: Dr. Jazmin Mann, DO; Dr. Rufus Garcia MD Signed Jazmin Mann DO Work Phone: Start: 12-28-2022 End: 12-28-2022 Discharge Summary Procedure Note: See Note; NOTES: [facility] Medical Records Department [address] [place] [address] Discharge Summary 12/28/22 1219 MR#: [id number] Acct: [id number] Name: LORETTA LEMUS NOVEMBER Rep #: [id number] : 1970 52 From: Rufus Garcia MD PCP: Dr. Jazmin Mann DO Status:[facility] Location: [place] [address] Providers Primary Care Physician: Dr. Jazmin Mann DO Reason For Visit: FESS W NAVIGATION Medications at Discharge Home Medications lansoprazole 30 mg capsule,delayed release 30 mg PO DAILY 12/23/22 lisinopril 20 mg tablet 20 mg PO BID 12/23/22 Weight / BMI Weight Weight: 116.573 kg Body Mass Index (BMI) 39.0 ABG / Lab / Microbiology Data Result Diagrams: 12/24/22 13:38 12/24/22 13:38 D/C Instructions Discharge Diet: No restrictions Additional Activity Instructions: No nose blowing Additional Instructions: Start antibiotics tonight. Start irrigation tomorrow. Irrigate 4x/day Please Follow Up With: Rufus Garcia MD When: next week Meaningful Use Info Meaningful Use Diagnoses (Choose all that apply): None applicable Discharge Plan Admission Attending Provider: Rufus Garcia Primary Care Provider: Jazmin Mann Discharge Orders/Prescriptions Prescriptions: No Action lisinopril 20 mg Tablet 20 mg PO BID lansoprazole 30 mg Capsule,Delayed Release(Dr/Ec) 30 mg PO DAILY Referrals / Follow Up: Jazmin Mann DO [Primary Care Provider] - Disposition Disposition (needs filled in before D/C Order can be placed): Home, Self Care 12/28/22 1220 <Electronically signed by Rufus Garcia MD> Cosigner Signature (if applicable): CC: Dr. Jazmin Mann DO; Dr. Rufus Garcia MD Signed Jazmin Mann DO Work Phone: Start: 09-09-2022 End: 09-09-2022 Sinus/Facial Bone Procedure Note: See Note; NOTES: [facility] Imaging Services [address] [place] [address] Sinus/Facial Bone MR#: [id number] Acct: [id number] Name: LORETTA LEMUS Rep #: [id number] : 1970 F 51 From: Rodger house MD PCP: Dr. Jazmin Mann DO Status: REG CLI Study: Sinus/Facial Bone Date of Exam: 09/09/22 Exam# [id number] Ordering Dr: Rufus Garcia MD STUDY: CT MAXILLOFACIAL SINUSES REASON FOR EXAM: Female, 51 years old. CHRONIC SINUSITIS RADIATION DOSAGE (If Supplied By Facility): CTDIvol = ( 33.06 ) mGy, DLP = ( 817.32 ) mGycm TECHNIQUE: The patient was scanned in a multi detector CT scanner. High resolution axial imaging was performed without the administration of intravenous contrast material. Sagittal and coronal images were reconstructed. Individualized dose optimization techniques were used for this CT. COMPARISON: None. FINDINGS: Small bilateral submental lymph nodes. FRONTAL SINUSES: Opacification of the frontal sinuses. ETHMOIDAL SINUSES: Opacification of the ethmoid sinuses bilaterally. MAXILLARY SINUSES: Mucosal thickening of the maxillary sinuses bilaterally more prominent on the right side. SPHENOIDAL SINUSES: Mild degree of mucosal thickening of the sphenoid sinuses. There is compromise of the bilateral maxillary infundibula due to mucosal hypertrophy worse on the right side. Normal bilateral middle turbinates. Normal bilateral inferior turbinates. Normal midline nasal septum. There is patency of the bilateral nasal airways. The visualized osseous structures are normal. The visualized bilateral orbital contents are normal. CT/Sinus/Facial Bone IMPRESSION: SMITH sinusitis. Electronically Signed: Rodger Willson MD at 14:43 EST , CC: Dr. Jazmin Mann DO; Dr. Rufus Garcia MD Airplane First Officer: Signed Rufus Garcia MD Work Phone: Start: 02-20-2022 End: 02-20-2022 SCRN MAMM (CAD)W/LUPE BILAT Procedure Note: See Note; NOTES: [facility] Imaging Services [address] [place] [address] SCRN MAMM (CAD)W/LUPE BILAT MR#: [id number] Acct: [id number] Name: LORETTA LEMUS Rep #: [id number] : 1970 F 51 From: Rodger house MD PCP: Dr. Jazmin Mann DO Status: REG CLI Study: SCRN MAMM (CAD)W/LUPE BILAT Date of Exam: 01/24 04/16 Exam# [id number] Ordering Dr: Jazmin Mann DO MAMMOGRAPHY - BILATERAL SCREENING REASON FOR EXAM: Female, 51 years old. Routine annual screening examination. PERTINENT HISTORY: Non-contributory. TECHNIQUE: Digital bilateral breast lupe (3D mammographic acquisition) in the CC and MLO projections. 2-D mediolateral oblique (MLO) and craniocaudad (CC) views of both breasts were obtained. CAD: Full Field Digital Mammography with Computer Added Detection was performed. COMPARISON: Comparison is made with prior study dated 02/10/2021 and 02/06/2020. FINDINGS: Breast Composition: The breasts are heterogeneously dense, which may obscure small masses. There are no dominant masses or suspicious calcifications. Stable small benign appearing bilateral axillary lymph nodes. No other significant abnormalities are identified. There has been no significant change since the prior study. BI/SCRN MAMM (CAD)W/LUPE BILAT IMPRESSION: Stable bilateral screening mammogram. Yearly follow-up mammogram recommended. (A) ASSESSMENT CATEGORY: BIRADS Category 2: Benign. A letter regarding these results will be sent to the patient by the facility within 30 days. Approximately 10% of breast cancers are not detected by mammography. A normal mammogram should not delay biopsy of a clinically suspicious abnormality. [id number] Electronically Signed: Rodger Willson MD at 12:51 EDT Reading Location ID and State: [facility] / [place] , Service support , CC: Dr. Jazmin Mann DO Airplane First Officer: Signed Jazmin Mann DO Work Phone: Start: 02-10-2021 End: 02-10-2021 SCRN MAMM (CAD)W/LUPE BILAT Comments: See Note; NOTES: [facility] Imaging Services [address] [place] [address] SCRN MAMM (CAD)W/LUPE BILAT MR#: [id number] Acct: [id number] Name: LORETTA LEMUS Rep #: [id number] : 1970 F 50 From: Rodger house MD PCP: Care Physician,No Primary Status: [facility] Study: SCRN MAMM (CAD)W/LUPE BILAT Date of Exam: 01/23 04/15 Exam# [id number] Ordering Dr: Johnathan,Jazmin DO MAMMOGRAPHY - BILATERAL SCREENING REASON FOR EXAM: Female, 50 years old. Routine annual screening examination. PERTINENT HISTORY: Non-contributory. TECHNIQUE: Digital bilateral breast lupe (3D mammographic acquisition) in the CC and MLO projections. 2-D mediolateral oblique (MLO) and craniocaudad (CC) views of both breasts were obtained. CAD: Full Field Digital Mammography with Computer Added Detection was performed. COMPARISON: Comparison is made with prior study dated 02/06/2020 and 02/18/2018. FINDINGS: Breast Composition: The breasts are heterogeneously dense, which may obscure small masses. There are no dominant masses or suspicious calcifications. Stable small benign-appearing bilateral axillary lymph nodes. No other significant abnormalities are identified. There has been no significant change since the prior study. BI/SCRN MAMM (CAD)W/LUPE BILAT IMPRESSION: Stable bilateral screening mammogram. Yearly follow-up mammogram recommended. (A) ASSESSMENT CATEGORY: BIRADS Category 2: Benign. A letter regarding these results will be sent to the patient by the facility within 30 days. Approximately 10% of breast cancers are not detected by mammography. A normal mammogram should not delay biopsy of a clinically suspicious abnormality. [id number] Electronically Signed: Rodger Willson MD at 9:17 EDT , Service support , CC: Dr. Jazmin Mann DO; No Primary Care Physician Airplane First Officer: Signed Jazmin Mann DO Work Phone: Start: 12-30-2020 End: 12-30-2020 Chest PA and Lateral Comments: See Note; NOTES: [facility] [address] [place] [address] Chest PA and Lateral MR#: [id number] Acct: [id number] Name: LORETTA LEMUS Rep #: [id number] : 1970 F 50 From: Dale Chaudhary DO PCP: Care Physician, No Primary Status: DEP AMB Study: Chest PA and Lateral Date of Exam: 12/30/20 Exam# [id number] Ordering Dr: Jazmin Mann DO STUDY: X-RAY CHEST REASON FOR EXAM: Female, 50 years old. COUGH TECHNIQUE: Frontal and lateral views COMPARISON: None. FINDINGS: The lungs are clear and expanded. There is no demonstrated pleural abnormality. Normal size heart. Normal mediastinum and john. Normal visualized pulmonary arteries. Normal visualized aortic arch and descending thoracic aorta. Normal visualized thoracic spine. Normal visualized ribs, clavicles, and shoulders. There is no demonstrated abnormality of the visualized soft tissue structures of the upper abdomen. RAD/Chest PA and Lateral IMPRESSION: Normal x-ray examination of the chest. Electronically Signed: Dale Chaudhary DO at 15:56 EDT Tel [phone], Service support , CC: No Primary Care Physician; Dr. Jazmin Mann DO Airplane First Officer: Signed Jazmin Mann DO Work Phone: section Celsa Grav ius Plan of Treatment Date Care Activity Detail Author Start: 08-06-2022 Procedure Education Eprescribed prescriptions (G8553) [facility]; [facility] Work Phone: Start: 08-06-2022 Provider Instructions for Treatment [facility]; [facility] Work Phone: Start: 08-06-2022 Assay of thyroid stimulating hormone tsh TSH (82109) [facility]; [facility] Work Phone: Start: 08-06-2022 Urnls dip stick/tablet reagent auto microscopy URINALYSIS, W/ MICRO (75352) [facility]; [facility] Work Phone: Start: 08-06-2022 Urine albumin quantitative MICROALBUMIN: CREATININE RATIO (50723) AND (93247) [facility]; [facility] Work Phone: Start: 08-06-2022 Comprehensive metabolic panel METABOLIC PANEL, COMPREHENSIVE (39578) [facility]; [facility] Work Phone: Start: 08-06-2022 Lipid panel LIPID PANEL (62455) [facility]; [facility] Work Phone: Start: 08-06-2022 Blood count complete auto&auto difrntl wbc CBC W/AUTO DIFF WBC (51278) [facility]; [facility] Work Phone: Start: 01-30-2022 Lipid panel LIPID PANEL (41520) [facility]; [facility] Work Phone: Start: 01-30-2022 Procedure Education Eprescribed prescriptions (G8553) [facility]; [facility] Work Phone: Start: 01-30-2022 Provider Instructions for Treatment Reviewed Lab [facility]; [facility] Work Phone: Start: 01-21-2022 Procedure Education Eprescribed prescriptions (G8553) [facility]; [facility] Work Phone: Start: 01-21-2022 Provider Instructions for Treatment [facility]; [facility] Work Phone: Start: 01-21-2022 Assay of thyroid stimulating hormone tsh TSH (76280) [facility]; [facility] Work Phone: Start: 01-21-2022 Urnls dip stick/tablet reagent auto microscopy URINALYSIS, W/ MICRO (86081) [facility]; [facility] Work Phone: Start: 01-21-2022 Urine albumin quantitative MICROALBUMIN: CREATININE RATIO (04160) AND (02794) [facility]; [facility] Work Phone: Start: 01-21-2022 Comprehensive metabolic panel METABOLIC PANEL, COMPREHENSIVE (99289) [facility]; [facility] Work Phone: Start: 01-21-2022 Blood count complete auto&auto difrntl wbc CBC W/AUTO DIFF WBC (78969) [facility]; [facility] Work Phone: Start: 01-21-2022 Lipid panel LIPID PANEL (29451) [facility]; [facility] Work Phone: Start: 04-24-2021 Procedure Education Eprescribed prescriptions (G8553) [facility]; [facility] Work Phone: Start: 03-03-2021 Procedure Education Eprescribed prescriptions (G8553) [facility]; [facility] Work Phone: Start: 03-03-2021 Provider Instructions for Treatment [facility]; [facility] Work Phone: Start: 12-30-2020 Assay of thyroid stimulating hormone tsh TSH (82634) [facility]; [facility] Work Phone: Start: 12-30-2020 Lipid panel LIPID PANEL (99892) [facility]; [facility] Work Phone: Start: 12-30-2020 Urnls dip stick/tablet reagent auto microscopy URINALYSIS, W/ MICRO (20251) [facility]; [facility] Work Phone: Start: 12-30-2020 Urine albumin quantitative MICROALBUMIN: CREATININE RATIO (23000) AND (60957) [facility]; [facility] Work Phone: Start: 12-30-2020 Comprehensive metabolic panel METABOLIC PANEL, COMPREHENSIVE (11398) [facility]; [facility] Work Phone: Start: 12-30-2020 Blood count complete auto&auto difrntl wbc CBC W/AUTO DIFF WBC (80204) [facility]; [facility] Work Phone: Start: 12-30-2020 Procedure Education Eprescribed prescriptions (G8553) [facility]; [facility] Work Phone: Start: 12-30-2020 Provider Instructions for Treatment [facility]; [facility] Work Phone: Start: 08-09-2020 Procedure Education Eprescribed prescriptions (G8553) [facility]; [facility] Work Phone: Start: 05-24-2020 Procedure Education Eprescribed prescriptions (G8553) [facility] Work Phone: Start: 05-24-2020 Provider Instructions for Treatment [facility] Internal Medicine Work Phone: Start: 05-03-2020 Procedure Education Eprescribed prescriptions (G8553) [facility] Work Phone: Start: 05-03-2020 Provider Instructions for Treatment [facility] Work Phone: Start: 05-03-2020 Urnls dip stick/tablet reagent auto microscopy URINALYSIS, W/ MICRO (68230) [facility] Work Phone: Start: 05-03-2020 Urine albumin quantitative MICROALBUMIN: CREATININE RATIO (99872) AND ([id number]) [facility] Work Phone: Start: 05-03-2020 Comprehensive metabolic panel METABOLIC PANEL, COMPREHENSIVE (81770) [facility] Work Phone: Start: 05-03-2020 Lipid panel LIPID PANEL (30287) [facility] Work Phone: Start: 05-03-2020 Blood count complete auto&auto difrntl wbc CBC W/AUTO DIFF WBC (35172) [facility] Work Phone: Start: 02-09-2020 Procedure Education Eprescribed prescriptions (G8553) [facility] Work Phone: Start: 02-09-2020 Provider Instructions for Treatment BP MONITORING - SELF [facility] Work Phone: Start: 01-19-2020 Procedure Education Eprescribed prescriptions (G8553) [facility] Work Phone: [facility] Work Phone: [facility] Work Phone: [facility] Work Phone: [facility]; [facility] Work Phone: [facility]; [facility] Work Phone: [facility]; [facility] Work Phone: [facility]; [facility] Work Phone: [facility]; [facility] Work Phone: [facility]; [facility] Work Phone: [facility]; [facility] Work Phone: Immunizations Immunization Date Immunization Notes Care Provider Fa aguilarty 08-26-2020 COVID-Moderna (100 MCG/0.5 ML) Jazmin Mann DO Work Phone: [facility]; [facility] Work Phone: Payers Date Payer Category Payer Unknown [id number] 1970 Unknown [id number] Unknown [employer] Social History Date Type Detail Facility Alcohol Use: Alcohol Use: [facility] Work Phone: Caffeine Use Caffeine Use [facility] Work Phone: Clinical Notes 01-31-2021 Note Date & Type Note Facility 01-31-2021 Note Loretta is a 50 y.o. female who presents to our office today for evaluation secondary to her request and the request of Dr. Mann (see referral in Epic). A Methacholine Challenge was recommended but not scheduled as yet and a CXR was normal. She reports a history for at least 2 years with increased nasal congestion in the AM and some postnasal drainage and cough. Also, Symbicort 160/4.5mcg was prescribed for some wheezing at times and this is done as needed. This was just prescribed about a month ago and this has only been used 6 times and she was previously prescribed and albuterol was prescribed but did not seem to be as helpful. At baseline, she is still able to do some activity and she denies nocturnal awakenings from chest symptoms. The nasal symptoms are perennial and the wheezing symptoms are more in the spring and less in the fall. Flonase was prescribed some time ago and this is used somewhat consistently 3-4 times per week and she thinks this is helpful and she denies issues with the taste or with stinging or burning. Her history is unremarkable for recurrent sinusitis and she has tried some OTC allergy medications with only mild improvement. Regarding foods, her history is unremarkable. -She says she does have fairly consistent throat clearing throughout the day and that she has has increased cough and drainage after eating and with showers. Environmental Survey/Social History: Lives with spouse and 2 children and lives in a log home. 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 Eyes: denies vision changes, color blindness. Ears, nose throat and mouth: see narrative above. Nasal congestion and drainage. Respiratory: denies wheezing, cough or chest tightness at this time/ see above narrative. Gastrointestinal: denies diarrhea, constipation, emesis. Genitourinary: denies dysuria or urine odor. Skin/integumentary: denies nail changes or other rash. Neurologic: denies seizures, weakness or speech problems. Hematologic/lymphatic: denies pallor. Allergic/Immunologic: see narrative above. No food issues. *Regarding bee stings, no issues (she has been stung). Past Medical History: Diagnosis Date Uncomplicated asthma Past Surgical History: Procedure Laterality Date TONSILLECTOMY Current Outpatient Medications Medication Sig Dispense Refill SYMBICORT 160-4.5 MCG/ACT inhaler INHALE 1 PUFF BY MOUTH TWICE DAILY lisinopril (ZESTRIL) 20 MG TABS tablet Take 20 mg by mouth 2 times daily albuterol 108 (90 Base) MCG/ACT inhaler Inhale 2 Puffs into the lungs every 6 hours as needed for Wheezing No current facility-administered medications for this visit. *She has been on the Lisinopril for a year and a half. She started having issues with cough before starting this. History reviewed. No pertinent family history. Allergies: NKDA. PE: Nursing note and Vital signs reviewed. BP (!) 146/86 Pulse 73 Resp 16 Ht 167 cm Wt (!) 116.2 kg BMI 41.67 kg/m Constitutional: She was awake, alert and in no apparent distress. No cough at this visit Conjunctivae: clear. Nasal mucosa: mildly erythematous and edematous. Nasal turbinates: mildly enlarged. No polyps visualized. Tympanic membranes: clear. Throat: Slight postnasal drainage; otherwise, clear. She did not have cervical adenopathy. Lungs: clear to auscultation bilaterally. Cardio: regular rate and rhythm. Musculoskeletal: good upper extremity strength bilaterally. Neuro: oriented to time and place, good interaction. Skin: upper extremities clear at this visit. Epicutaneous testing to multiple environmental allergens revealed good controls and Loretta was completely negative (histamine control 8mm/19mm). Impression Loretta Lemus is a 50 yo WF with a history of chronic rhinitis and some degree of cough. Flonase has been used at times and been somewhat helpful. Also, she is overweight and at times has some perceived wheezing and albuterol seemed equivocal for this and as needed Symbicort has been helpful and tolerated and used about 6 times this spring. A Methacholine was recommended but not done as yet and she feels OTC Antihistamine medications seemed equivocal. Environmental allergen testing was negative and she may have more in the way of chronic, nonallergic/vasomotor rhinitis. The benefits, side effects of the treatment and treatment alternatives were discussed. Plan 1. I would recommend having the Methacholine done at some point per Dr. Mann, may want to call her office to let her know you have not had this done and see what other things she needs to do to have this done. 2. Continue Symbicort 160/4.5mcg per Dr. Mann. This could be done (more content not included)... [facility]; [facility] Work Phone: Instructions* Name Dates Details How to Access [employer] Online using Patient Portal and 3rd [employer] Apps Indication:Non-smoker Start:30-Dec-2020 Instruction Type:Patient Education Patient Instructions Indication:Non-smoker Start:30-Dec-2020 Instruction Type:Provider Instructions for Treatment How to Access Health Informa tion Online using Patient Portal and [employer]rd [employer] Apps Indication:Non-smoker Start:09-Aug-2020 Instruction Type:Patient Education Patient Instructions Indication:Non-smoker Start:09-Aug-2020 Instruction Type:Provider Instructions for Treatment How to access health informa tion online Indication:Non-smoker Start:24-May-2020 Instruction Type:Patient Education How to access health informa tion online - Detail Indication:Non-smoker Start:24-May-2020 Instruction Type:Patient Education Patient Instructions Indication:Non-smoker Start:24-May-2020 Instruction Type:Provider Instructions for Treatment How to access health informa tion online Indication:Non-smoker Start:03-May-2020 Instruction Type:Patient Education How to access health informa tion online - Detail Indication:Non-smoker Start:03-May-2020 Instruction Type:Patient Education Patient Instructions Indication:Non-smoker Start:03-May-2020 Instruction Type:Provider Instructions for Treatment How to access health informa tion online Indication:BMI 38.0-38.9,adult Start:09-Feb-2020 Instruction Type:Patient Education How to access health informa tion online - Detail Indication:BMI 38.0-38.9,adult Start:09-Feb-2020 Instruction Type:Patient Education Patient Instructions Indication:BMI 38.0-38.9,adult Start:09-Feb-2020 Instruction Type:Provider Instructions for Treatment How to access health informa tion online Indication:Non-smoker Start:19-Jan-2020 Instruction Type:Patient Education How to access health informa tion online - Detail Indication:Non-smoker Start:19-Jan-2020 Instruction Type:Patient Education Patient Instructions Indication:Non-smoker Start:19-Jan-2020 Instruction Type:Provider Instructions for Treatment [facility]; [facility] Work Phone: Instructions* Name Dates Details How to Access Health Informa tion Online using Patient Portal and [email or web address] Apps Indication:Non-smoker Start:30-Dec-2020 Instruction Type:Patient Education Patient Instructions Indication:Non-smoker Start:30-Dec-2020 Instruction Type:Provider Instructions for Treatment How to Access Health Informa tion Online using Patient Portal and [email or web address] Apps Indication:Non-smoker Start:09-Aug-2020 Instruction Type:Patient Education Patient Instructions Indication:Non-smoker Start:09-Aug-2020 Instruction Type:Provider Instructions for Treatment How to access health informa tion online Indication:Non-smoker Start:24-May-2020 Instruction Type:Patient Education How to access health informa tion online - Detail Indication:Non-smoker Start:24-May-2020 Instruction Type:Patient Education Patient Instructions Indication:Non-smoker Start:24-May-2020 Instruction Type:Provider Instructions for Treatment How to access health informa tion online Indication:Non-smoker Start:03-May-2020 Instruction Type:Patient Education How to access health informa tion online - Detail Indication:Non-smoker Start:03-May-2020 Instruction Type:Patient Education Patient Instructions Indication:Non-smoker Start:03-May-2020 Instruction Type:Provider Instructions for Treatment How to access health informa tion online Indication:BMI 38.0-38.9,adult Start:09-Feb-2020 Instruction Type:Patient Education How to access health informa tion online - Detail Indication:BMI 38.0-38.9,adult Start:09-Feb-2020 Instruction Type:Patient Education Patient Instructions Indication:BMI 38.0-38.9,adult Start:09-Feb-2020 Instruction Type:Provider Instructions for Treatment How to access health informa tion online Indication:Non-smoker Start:19-Jan-2020 Instruction Type:Patient Education How to access health informa tion online - Detail Indication:Non-smoker Start:19-Jan-2020 Instruction Type:Patient Education Patient Instructions Indication:Non-smoker Start:19-Jan-2020 Instruction Type:Provider Instructions for Treatment [facility]; [facility] Work Phone: Instructions* Name Dates Details How to Access Health Informa tion Online using Patient Portal and [employer] Indication:Non-smoker Start:30-Dec-2020 Instruction Type:Patient Education Patient Instructions Indication:Non-smoker Start:30-Dec-2020 Instruction Type:Provider Instructions for Treatment How to Access Health Informa tion Online using Patient Portal and [employer] Indication:Non-smoker Start:09-Aug-2020 Instruction Type:Patient Education Patient Instructions Indication:Non-smoker Start:09-Aug-2020 Instruction Type:Provider Instructions for Treatment How to access health informa tion online Indication:Non-smoker Start:24-May-2020 Instruction Type:Patient Education How to access health informa tion online - Detail Indication:Non-smoker Start:24-May-2020 Instruction Type:Patient Education Patient Instructions Indication:Non-smoker Start:24-May-2020 Instruction Type:Provider Instructions for Treatment How to access health informa tion online Indication:Non-smoker Start:03-May-2020 Instruction Type:Patient Education How to access health informa tion online - Detail Indication:Non-smoker Start:03-May-2020 Instruction Type:Patient Education Patient Instructions Indication:Non-smoker Start:03-May-2020 Instruction Type:Provider Instructions for Treatment How to access health informa tion online Indication:BMI 38.0-38.9,adult Start:09-Feb-2020 Instruction Type:Patient Education How to access health informa tion online - Detail Indication:BMI 38.0-38.9,adult Start:09-Feb-2020 Instruction Type:Patient Education Patient Instructions Indication:BMI 38.0-38.9,adult Start:09-Feb-2020 Instruction Type:Provider Instructions for Treatment How to access health informa tion online Indication:Non-smoker Start:19-Jan-2020 Instruction Type:Patient Education How to access health informa tion online - Detail Indication:Non-smoker Start:19-Jan-2020 Instruction Type:Patient Education Patient Instructions Indication:Non-smoker Start:19-Jan-2020 Instruction Type:Provider Instructions for Treatment [facility]; [facility] Work Phone: Instructions* Name Dates Details Patient Instructions Indication:Non-smoker Start:24-Apr-2021 Instruction Type:Provider Instructions for Treatment How to Access Health Informa tion Online using Patient Portal and [employer] Apps Indication:Non-smoker Start:24-Apr-2021 Instruction Type:Patient Education Patient Instructions Indication:Non-smoker Start:03-Mar-2021 Instruction Type:Provider Instructions for Treatment How to Access Health Informa tion Online using Patient Portal and [employer] Indication:Non-smoker Start:03-Mar-2021 Instruction Type:Patient Education How to Access Health Informa tion Online using Patient Portal and [employer] Apps Indication:Non-smoker Start:30-Dec-2020 Instruction Type:Patient Education Patient Instructions Indication:Non-smoker Start:30-Dec-2020 Instruction Type:Provider Instructions for Treatment How to Access Health Informa tion Online using Patient Portal and [employer] Apps Indication:Non-smoker Start:09-Aug-2020 Instruction Type:Patient Education Patient Instructions Indication:Non-smoker Start:09-Aug-2020 Instruction Type:Provider Instructions for Treatment How to access health informa tion online Indication:Non-smoker Start:24-May-2020 Instruction Type:Patient Education How to access health informa tion online - Detail Indication:Non-smoker Start:24-May-2020 Instruction Type:Patient Education Patient Instructions Indication:Non-smoker Start:24-May-2020 Instruction Type:Provider Instructions for Treatment How to access health informa tion online Indication:Non-smoker Start:03-May-2020 Instruction Type:Patient Education How to access health informa tion online - Detail Indication:Non-smoker Start:03-May-2020 Instruction Type:Patient Education Patient Instructions Indication:Non-smoker Start:03-May-2020 Instruction Type:Provider Instructions for Treatment How to access health informa tion online Indication:BMI 38.0-38.9,adult Start:09-Feb-2020 Instruction Type:Patient Education How to access health informa tion online - Detail Indication:BMI 38.0-38.9,adult Start:09-Feb-2020 Instruction Type:Patient Education Patient Instructions Indication:BMI 38.0-38.9,adult Start:09-Feb-2020 Instruction Type:Provider Instructions for Treatment How to access health informa tion online Indication:Non-smoker Start:19-Jan-2020 Instruction Type:Patient Education How to access health informa tion online - Detail Indication:Non-smoker Start:19-Jan-2020 Instruction Type:Patient Education Patient Instructions Indication:Non-smoker Start:19-Jan-2020 Instruction Type:Provider Instructions for Treatment [facility]; [facility] Work Phone: Instructions* Name Dates Details Patient Instructions Indication:Non-smoker Start:24-Apr-2021 Instruction Type:Provider Instructions for Treatment How to Access Health Informa tion Online using Patient Portal and [employer] Indication:Non-smoker Start:24-Apr-2021 Instruction Type:Patient Education Patient Instructions Indication:Non-smoker Start:03-Mar-2021 Instruction Type:Provider Instructions for Treatment How to Access Health Informa tion Online using Patient Portal and [employer] Indication:Non-smoker Start:03-Mar-2021 Instruction Type:Patient Education How to Access Health Informa tion Online using Patient Portal and [employer] Indication:Non-smoker Start:30-Dec-2020 Instruction Type:Patient Education Patient Instructions Indication:Non-smoker Start:30-Dec-2020 Instruction Type:Provider Instructions for Treatment How to Access Health Informa tion Online using Patient Portal and [employer] Indication:Non-smoker Start:09-Aug-2020 Instruction Type:Patient Education Patient Instructions Indication:Non-smoker Start:09-Aug-2020 Instruction Type:Provider Instructions for Treatment How to access health informa tion online Indication:Non-smoker Start:24-May-2020 Instruction Type:Patient Education How to access health informa tion online - Detail Indication:Non-smoker Start:24-May-2020 Instruction Type:Patient Education Patient Instructions Indication:Non-smoker Start:24-May-2020 Instruction Type:Provider Instructions for Treatment How to access health informa tion online Indication:Non-smoker Start:03-May-2020 Instruction Type:Patient Education How to access health informa tion online - Detail Indication:Non-smoker Start:03-May-2020 Instruction Type:Patient Education Patient Instructions Indication:Non-smoker Start:03-May-2020 Instruction Type:Provider Instructions for Treatment How to access health informa tion online Indication:BMI 38.0-38.9,adult Start:09-Feb-2020 Instruction Type:Patient Education How to access health informa tion online - Detail Indication:BMI 38.0-38.9,adult Start:09-Feb-2020 Instruction Type:Patient Education Patient Instructions Indication:BMI 38.0-38.9,adult Start:09-Feb-2020 Instruction Type:Provider Instructions for Treatment How to access health informa tion online Indication:Non-smoker Start:19-Jan-2020 Instruction Type:Patient Education How to access health informa tion online - Detail Indication:Non-smoker Start:19-Jan-2020 Instruction Type:Patient Education Patient Instructions Indication:Non-smoker Start:19-Jan-2020 Instruction Type:Provider Instructions for Treatment [facility]; [facility] Work Phone: Instructions* Name Dates Details Patient Instructions Indication:Non-smoker Start:24-Apr-2021 Instruction Type:Provider Instructions for Treatment How to Access Health Informa tion Online using Patient Portal and [employer] Indication:Non-smoker Start:24-Apr-2021 Instruction Type:Patient Education Patient Instructions Indication:Non-smoker Start:03-Mar-2021 Instruction Type:Provider Instructions for Treatment How to Access Health Informa tion Online using Patient Portal and [employer] Indication:Non-smoker Start:03-Mar-2021 Instruction Type:Patient Education How to Access Health Informa tion Online using Patient Portal and [employer] Apps Indication:Non-smoker Start:30-Dec-2020 Instruction Type:Patient Education Patient Instructions Indication:Non-smoker Start:30-Dec-2020 Instruction Type:Provider Instructions for Treatment How to Access Health Informa tion Online using Patient Portal and [employer] Indication:Non-smoker Start:09-Aug-2020 Instruction Type:Patient Education Patient Instructions Indication:Non-smoker Start:09-Aug-2020 Instruction Type:Provider Instructions for Treatment How to access health informa tion online Indication:Non-smoker Start:24-May-2020 Instruction Type:Patient Education How to access health informa tion online - Detail Indication:Non-smoker Start:24-May-2020 Instruction Type:Patient Education Patient Instructions Indication:Non-smoker Start:24-May-2020 Instruction Type:Provider Instructions for Treatment How to access health informa tion online Indication:Non-smoker Start:03-May-2020 Instruction Type:Patient Education How to access health informa tion online - Detail Indication:Non-smoker Start:03-May-2020 Instruction Type:Patient Education Patient Instructions Indication:Non-smoker Start:03-May-2020 Instruction Type:Provider Instructions for Treatment How to access health informa tion online Indication:BMI 38.0-38.9,adult Start:09-Feb-2020 Instruction Type:Patient Education How to access health informa tion online - Detail Indication:BMI 38.0-38.9,adult Start:09-Feb-2020 Instruction Type:Patient Education Patient Instructions Indication:BMI 38.0-38.9,adult Start:09-Feb-2020 Instruction Type:Provider Instructions for Treatment How to access health informa tion online Indication:Non-smoker Start:19-Jan-2020 Instruction Type:Patient Education How to access health informa tion online - Detail Indication:Non-smoker Start:19-Jan-2020 Instruction Type:Patient Education Patient Instructions Indication:Non-smoker Start:19-Jan-2020 Instruction Type:Provider Instructions for Treatment [facility]; [facility] Work Phone: Instructions* Name Dates Details Patient Instructions Indication:Non-smoker Start:24-Apr-2021 Instruction Type:Provider Instructions for Treatment How to Access Health Informa tion Online using Patient Portal and [employer] Indication:Non-smoker Start:24-Apr-2021 Instruction Type:Patient Education Patient Instructions Indication:Non-smoker Start:03-Mar-2021 Instruction Type:Provider Instructions for Treatment How to Access Health Informa tion Online using Patient Portal and [employer] Indication:Non-smoker Start:03-Mar-2021 Instruction Type:Patient Education How to Access Health Informa tion Online using Patient Portal and [employer] Indication:Non-smoker Start:30-Dec-2020 Instruction Type:Patient Education Patient Instructions Indication:Non-smoker Start:30-Dec-2020 Instruction Type:Provider Instructions for Treatment How to Access Health Informa tion Online using Patient Portal and [employer] Indication:Non-smoker Start:09-Aug-2020 Instruction Type:Patient Education Patient Instructions Indication:Non-smoker Start:09-Aug-2020 Instruction Type:Provider Instructions for Treatment How to access health informa tion online Indication:Non-smoker Start:24-May-2020 Instruction Type:Patient Education How to access health informa tion online - Detail Indication:Non-smoker Start:24-May-2020 Instruction Type:Patient Education Patient Instructions Indication:Non-smoker Start:24-May-2020 Instruction Type:Provider Instructions for Treatment How to access health informa tion online Indication:Non-smoker Start:03-May-2020 Instruction Type:Patient Education How to access health informa tion online - Detail Indication:Non-smoker Start:03-May-2020 Instruction Type:Patient Education Patient Instructions Indication:Non-smoker Start:03-May-2020 Instruction Type:Provider Instructions for Treatment How to access health informa tion online Indication:BMI 38.0-38.9,adult Start:09-Feb-2020 Instruction Type:Patient Education How to access health informa tion online - Detail Indication:BMI 38.0-38.9,adult Start:09-Feb-2020 Instruction Type:Patient Education Patient Instructions Indication:BMI 38.0-38.9,adult Start:09-Feb-2020 Instruction Type:Provider Instructions for Treatment How to access health informa tion online Indication:Non-smoker Start:19-Jan-2020 Instruction Type:Patient Education How to access health informa tion online - Detail Indication:Non-smoker Start:19-Jan-2020 Instruction Type:Patient Education Patient Instructions Indication:Non-smoker Start:19-Jan-2020 Instruction Type:Provider Instructions for Treatment [facility]; [facility] Work Phone: Instructions* Name Dates Details Patient Instructions Indication:BMI 37.0-37.9, adult Start:21-Jan-2022 Instruction Type:Provider Instructions for Treatment How to Access Health Informa tion Online using Patient Portal and [employer]rd [employer] Apps Indication:BMI 37.0-37.9, adult Start:21-Jan-2022 Instruction Type:Patient Education Patient Instructions Indication:Non-smoker Start:24-Apr-2021 Instruction Type:Provider Instructions for Treatment How to Access Health Informa tion Online using Patient Portal and [employer] Apps Indication:Non-smoker Start:24-Apr-2021 Instruction Type:Patient Education Patient Instructions Indication:Non-smoker Start:03-Mar-2021 Instruction Type:Provider Instructions for Treatment How to Access Health Informa tion Online using Patient Portal and [employer] Apps Indication:Non-smoker Start:03-Mar-2021 Instruction Type:Patient Education How to Access Health Informa tion Online using Patient Portal and [employer] Apps Indication:Non-smoker Start:30-Dec-2020 Instruction Type:Patient Education Patient Instructions Indication:Non-smoker Start:30-Dec-2020 Instruction Type:Provider Instructions for Treatment How to Access Health Informa tion Online using Patient Portal and [employer] Apps Indication:Non-smoker Start:09-Aug-2020 Instruction Type:Patient Education Patient Instructions Indication:Non-smoker Start:09-Aug-2020 Instruction Type:Provider Instructions for Treatment How to access health informa tion online Indication:Non-smoker Start:24-May-2020 Instruction Type:Patient Education How to access health informa tion online - Detail Indication:Non-smoker Start:24-May-2020 Instruction Type:Patient Education Patient Instructions Indication:Non-smoker Start:24-May-2020 Instruction Type:Provider Instructions for Treatment How to access health informa tion online Indication:Non-smoker Start:03-May-2020 Instruction Type:Patient Education How to access health informa tion online - Detail Indication:Non-smoker Start:03-May-2020 Instruction Type:Patient Education Patient Instructions Indication:Non-smoker Start:03-May-2020 Instruction Type:Provider Instructions for Treatment How to access health informa tion online Indication:BMI 38.0-38.9,adult Start:09-Feb-2020 Instruction Type:Patient Education How to access health informa tion online - Detail Indication:BMI 38.0-38.9,adult Start:09-Feb-2020 Instruction Type:Patient Education Patient Instructions Indication:BMI 38.0-38.9,adult Start:09-Feb-2020 Instruction Type:Provider Instructions for Treatment How to access health informa tion online Indication:Non-smoker Start:19-Jan-2020 Instruction Type:Patient Education How to access health informa tion online - Detail Indication:Non-smoker Start:19-Jan-2020 Instruction Type:Patient Education Patient Instructions Indication:Non-smoker Start:19-Jan-2020 Instruction Type:Provider Instructions for Treatment [facility]; [facility] Work Phone: Instructions* Name Dates Details Patient Instructions Indication:BMI 37.0-37.9, adult Start:21-Jan-2022 Instruction Type:Provider Instructions for Treatment How to Access Health Informa tion Online using Patient Portal and [email or web address] Apps Indication:BMI 37.0-37.9, adult Start:21-Jan-2022 Instruction Type:Patient Education Patient Instructions Indication:Non-smoker Start:24-Apr-2021 Instruction Type:Provider Instructions for Treatment How to Access Health Informa tion Online using Patient Portal and [email or web address] Apps Indication:Non-smoker Start:24-Apr-2021 Instruction Type:Patient Education Patient Instructions Indication:Non-smoker Start:03-Mar-2021 Instruction Type:Provider Instructions for Treatment How to Access Health Informa tion Online using Patient Portal and [employer] Apps Indication:Non-smoker Start:03-Mar-2021 Instruction Type:Patient Education How to Access Health Informa tion Online using Patient Portal and [employer] Apps Indication:Non-smoker Start:30-Dec-2020 Instruction Type:Patient Education Patient Instructions Indication:Non-smoker Start:30-Dec-2020 Instruction Type:Provider Instructions for Treatment How to Access Health Informa tion Online using Patient Portal and [employer] Apps Indication:Non-smoker Start:09-Aug-2020 Instruction Type:Patient Education Patient Instructions Indication:Non-smoker Start:09-Aug-2020 Instruction Type:Provider Instructions for Treatment How to access health informa tion online Indication:Non-smoker Start:24-May-2020 Instruction Type:Patient Education How to access health informa tion online - Detail Indication:Non-smoker Start:24-May-2020 Instruction Type:Patient Education Patient Instructions Indication:Non-smoker Start:24-May-2020 Instruction Type:Provider Instructions for Treatment How to access health informa tion online Indication:Non-smoker Start:03-May-2020 Instruction Type:Patient Education How to access health informa tion online - Detail Indication:Non-smoker Start:03-May-2020 Instruction Type:Patient Education Patient Instructions Indication:Non-smoker Start:03-May-2020 Instruction Type:Provider Instructions for Treatment How to access health informa tion online Indication:BMI 38.0-38.9,adult Start:09-Feb-2020 Instruction Type:Patient Education How to access health informa tion online - Detail Indication:BMI 38.0-38.9,adult Start:09-Feb-2020 Instruction Type:Patient Education Patient Instructions Indication:BMI 38.0-38.9,adult Start:09-Feb-2020 Instruction Type:Provider Instructions for Treatment How to access health informa tion online Indication:Non-smoker Start:19-Jan-2020 Instruction Type:Patient Education How to access health informa tion online - Detail Indication:Non-smoker Start:19-Jan-2020 Instruction Type:Patient Education Patient Instructions Indication:Non-smoker Start:19-Jan-2020 Instruction Type:Provider Instructions for Treatment [facility]; [facility] Work Phone: Instructions* Name Dates Details Patient Instructions Indication:Non-smoker Start:30-Jan-2022 Instruction Type:Provider Instructions for Treatment How to Access Health Informa tion Online using Patient Portal and [email or web address] Apps Indication:Non-smoker Start:30-Jan-2022 Instruction Type:Patient Education Patient Instructions Indication:BMI 37.0-37.9, adult Start:21-Jan-2022 Instruction Type:Provider Instructions for Treatment How to Access Health Informa tion Online using Patient Portal and [employer] Apps Indication:BMI 37.0-37.9, adult Start:21-Jan-2022 Instruction Type:Patient Education Patient Instructions Indication:Non-smoker Start:24-Apr-2021 Instruction Type:Provider Instructions for Treatment How to Access Health Informa tion Online using Patient Portal and [employer] Apps Indication:Non-smoker Start:24-Apr-2021 Instruction Type:Patient Education Patient Instructions Indication:Non-smoker Start:03-Mar-2021 Instruction Type:Provider Instructions for Treatment How to Access Health Informa tion Online using Patient Portal and [employer] Apps Indication:Non-smoker Start:03-Mar-2021 Instruction Type:Patient Education How to Access Health Informa tion Online using Patient Portal and [employer] Apps Indication:Non-smoker Start:30-Dec-2020 Instruction Type:Patient Education Patient Instructions Indication:Non-smoker Start:30-Dec-2020 Instruction Type:Provider Instructions for Treatment How to Access Health Informa tion Online using Patient Portal and [employer] Apps Indication:Non-smoker Start:09-Aug-2020 Instruction Type:Patient Education Patient Instructions Indication:Non-smoker Start:09-Aug-2020 Instruction Type:Provider Instructions for Treatment How to access health informa tion online Indication:Non-smoker Start:24-May-2020 Instruction Type:Patient Education How to access health informa tion online - Detail Indication:Non-smoker Start:24-May-2020 Instruction Type:Patient Education Patient Instructions Indication:Non-smoker Start:24-May-2020 Instruction Type:Provider Instructions for Treatment How to access health informa tion online Indication:Non-smoker Start:03-May-2020 Instruction Type:Patient Education How to access health informa tion online - Detail Indication:Non-smoker Start:03-May-2020 Instruction Type:Patient Education Patient Instructions Indication:Non-smoker Start:03-May-2020 Instruction Type:Provider Instructions for Treatment How to access health informa tion online Indication:BMI 38.0-38.9,adult Start:09-Feb-2020 Instruction Type:Patient Education How to access health informa tion online - Detail Indication:BMI 38.0-38.9,adult Start:09-Feb-2020 Instruction Type:Patient Education Patient Instructions Indication:BMI 38.0-38.9,adult Start:09-Feb-2020 Instruction Type:Provider Instructions for Treatment How to access health informa tion online Indication:Non-smoker Start:19-Jan-2020 Instruction Type:Patient Education How to access health informa tion online - Detail Indication:Non-smoker Start:19-Jan-2020 Instruction Type:Patient Education Patient Instructions Indication:Non-smoker Start:19-Jan-2020 Instruction Type:Provider Instructions for Treatment [facility]; [facility] Work Phone: Instructions* Name Dates Details Patient Instructions Indication:Non-smoker Start:30-Jan-2022 Instruction Type:Provider Instructions for Treatment How to Access Health Informa tion Online using Patient Portal and [employer] Apps Indication:Non-smoker Start:30-Jan-2022 Instruction Type:Patient Education Patient Instructions Indication:BMI 37.0-37.9, adult Start:21-Jan-2022 Instruction Type:Provider Instructions for Treatment How to Access Health Informa tion Online using Patient Portal and [employer] Apps Indication:BMI 37.0-37.9, adult Start:21-Jan-2022 Instruction Type:Patient Education Patient Instructions Indication:Non-smoker Start:24-Apr-2021 Instruction Type:Provider Instructions for Treatment How to Access Health Informa tion Online using Patient Portal and [employer] Apps Indication:Non-smoker Start:24-Apr-2021 Instruction Type:Patient Education Patient Instructions Indication:Non-smoker Start:03-Mar-2021 Instruction Type:Provider Instructions for Treatment How to Access Health Informa tion Online using Patient Portal and [employer] Apps Indication:Non-smoker Start:03-Mar-2021 Instruction Type:Patient Education How to Access Health Informa tion Online using Patient Portal and [employer] Apps Indication:Non-smoker Start:30-Dec-2020 Instruction Type:Patient Education Patient Instructions Indication:Non-smoker Start:30-Dec-2020 Instruction Type:Provider Instructions for Treatment How to Access Health Informa tion Online using Patient Portal and [employer] Apps Indication:Non-smoker Start:09-Aug-2020 Instruction Type:Patient Education Patient Instructions Indication:Non-smoker Start:09-Aug-2020 Instruction Type:Provider Instructions for Treatment How to access health informa tion online Indication:Non-smoker Start:24-May-2020 Instruction Type:Patient Education How to access health informa tion online - Detail Indication:Non-smoker Start:24-May-2020 Instruction Type:Patient Education Patient Instructions Indication:Non-smoker Start:24-May-2020 Instruction Type:Provider Instructions for Treatment How to access health informa tion online Indication:Non-smoker Start:03-May-2020 Instruction Type:Patient Education How to access health informa tion online - Detail Indication:Non-smoker Start:03-May-2020 Instruction Type:Patient Education Patient Instructions Indication:Non-smoker Start:03-May-2020 Instruction Type:Provider Instructions for Treatment How to access health informa tion online Indication:BMI 38.0-38.9,adult Start:09-Feb-2020 Instruction Type:Patient Education How to access health informa tion online - Detail Indication:BMI 38.0-38.9,adult Start:09-Feb-2020 Instruction Type:Patient Education Patient Instructions Indication:BMI 38.0-38.9,adult Start:09-Feb-2020 Instruction Type:Provider Instructions for Treatment How to access health informa tion online Indication:Non-smoker Start:19-Jan-2020 Instruction Type:Patient Education How to access health informa tion online - Detail Indication:Non-smoker Start:19-Jan-2020 Instruction Type:Patient Education Patient Instructions Indication:Non-smoker Start:19-Jan-2020 Instruction Type:Provider Instructions for Treatment [facility]; [facility] Work Phone: Instructions* Name Dates Details Patient Instructions Indication:Non-smoker Start:30-Jan-2022 Instruction Type:Provider Instructions for Treatment How to Access Health Informa tion Online using Patient Portal and [employer]rd [employer] Apps Indication:Non-smoker Start:30-Jan-2022 Instruction Type:Patient Education Patient Instructions Indication:BMI 37.0-37.9, adult Start:21-Jan-2022 Instruction Type:Provider Instructions for Treatment How to Access Health Informa tion Online using Patient Portal and [employer]rd [employer] Apps Indication:BMI 37.0-37.9, adult Start:21-Jan-2022 Instruction Type:Patient Education Patient Instructions Indication:Non-smoker Start:24-Apr-2021 Instruction Type:Provider Instructions for Treatment How to Access Health Informa tion Online using Patient Portal and [employer] Apps Indication:Non-smoker Start:24-Apr-2021 Instruction Type:Patient Education Patient Instructions Indication:Non-smoker Start:03-Mar-2021 Instruction Type:Provider Instructions for Treatment How to Access Health Informa tion Online using Patient Portal and [employer] Apps Indication:Non-smoker Start:03-Mar-2021 Instruction Type:Patient Education How to Access Health Informa tion Online using Patient Portal and [employer] Apps Indication:Non-smoker Start:30-Dec-2020 Instruction Type:Patient Education Patient Instructions Indication:Non-smoker Start:30-Dec-2020 Instruction Type:Provider Instructions for Treatment How to Access Health Informa tion Online using Patient Portal and [employer] Apps Indication:Non-smoker Start:09-Aug-2020 Instruction Type:Patient Education Patient Instructions Indication:Non-smoker Start:09-Aug-2020 Instruction Type:Provider Instructions for Treatment How to access health informa tion online Indication:Non-smoker Start:24-May-2020 Instruction Type:Patient Education How to access health informa tion online - Detail Indication:Non-smoker Start:24-May-2020 Instruction Type:Patient Education Patient Instructions Indication:Non-smoker Start:24-May-2020 Instruction Type:Provider Instructions for Treatment How to access health informa tion online Indication:Non-smoker Start:03-May-2020 Instruction Type:Patient Education How to access health informa tion online - Detail Indication:Non-smoker Start:03-May-2020 Instruction Type:Patient Education Patient Instructions Indication:Non-smoker Start:03-May-2020 Instruction Type:Provider Instructions for Treatment How to access health informa tion online Indication:BMI 38.0-38.9,adult Start:09-Feb-2020 Instruction Type:Patient Education How to access health informa tion online - Detail Indication:BMI 38.0-38.9,adult Start:09-Feb-2020 Instruction Type:Patient Education Patient Instructions Indication:BMI 38.0-38.9,adult Start:09-Feb-2020 Instruction Type:Provider Instructions for Treatment How to access health informa tion online Indication:Non-smoker Start:19-Jan-2020 Instruction Type:Patient Education How to access health informa tion online - Detail Indication:Non-smoker Start:19-Jan-2020 Instruction Type:Patient Education Patient Instructions Indication:Non-smoker Start:19-Jan-2020 Instruction Type:Provider Instructions for Treatment [facility]; [facility] Work Phone: Instructions* Name Dates Details Patient Instructions Indication:Non-smoker Start:30-Jan-2022 Instruction Type:Provider Instructions for Treatment How to Access Health Informa tion Online using Patient Portal and [employer]rd [employer] Apps Indication:Non-smoker Start:30-Jan-2022 Instruction Type:Patient Education Patient Instructions Indication:BMI 37.0-37.9, adult Start:21-Jan-2022 Instruction Type:Provider Instructions for Treatment How to Access Health Informa tion Online using Patient Portal and [employer]rd [employer] Apps Indication:BMI 37.0-37.9, adult Start:21-Jan-2022 Instruction Type:Patient Education Patient Instructions Indication:Non-smoker Start:24-Apr-2021 Instruction Type:Provider Instructions for Treatment How to Access Health Informa tion Online using Patient Portal and [employer] Apps Indication:Non-smoker Start:24-Apr-2021 Instruction Type:Patient Education Patient Instructions Indication:Non-smoker Start:03-Mar-2021 Instruction Type:Provider Instructions for Treatment How to Access Health Informa tion Online using Patient Portal and [employer] Apps Indication:Non-smoker Start:03-Mar-2021 Instruction Type:Patient Education How to Access Health Informa tion Online using Patient Portal and [employer] Apps Indication:Non-smoker Start:30-Dec-2020 Instruction Type:Patient Education Patient Instructions Indication:Non-smoker Start:30-Dec-2020 Instruction Type:Provider Instructions for Treatment How to Access Health Informa tion Online using Patient Portal and [employer] Apps Indication:Non-smoker Start:09-Aug-2020 Instruction Type:Patient Education Patient Instructions Indication:Non-smoker Start:09-Aug-2020 Instruction Type:Provider Instructions for Treatment How to access health informa tion online Indication:Non-smoker Start:24-May-2020 Instruction Type:Patient Education How to access health informa tion online - Detail Indication:Non-smoker Start:24-May-2020 Instruction Type:Patient Education Patient Instructions Indication:Non-smoker Start:24-May-2020 Instruction Type:Provider Instructions for Treatment How to access health informa tion online Indication:Non-smoker Start:03-May-2020 Instruction Type:Patient Education How to access health informa tion online - Detail Indication:Non-smoker Start:03-May-2020 Instruction Type:Patient Education Patient Instructions Indication:Non-smoker Start:03-May-2020 Instruction Type:Provider Instructions for Treatment How to access health informa tion online Indication:BMI 38.0-38.9,adult Start:09-Feb-2020 Instruction Type:Patient Education How to access health informa tion online - Detail Indication:BMI 38.0-38.9,adult Start:09-Feb-2020 Instruction Type:Patient Education Patient Instructions Indication:BMI 38.0-38.9,adult Start:09-Feb-2020 Instruction Type:Provider Instructions for Treatment How to access health informa tion online Indication:Non-smoker Start:19-Jan-2020 Instruction Type:Patient Education How to access health informa tion online - Detail Indication:Non-smoker Start:19-Jan-2020 Instruction Type:Patient Education Patient Instructions Indication:Non-smoker Start:19-Jan-2020 Instruction Type:Provider Instructions for Treatment [facility]; [facility] Work Phone: Instructions* Name Dates Details Patient Instructions Indication:BMI 39.0-39.9,adult Start:06-Aug-2022 Instruction Type:Provider Instructions for Treatment How to Access Health Informa tion Online using Patient Portal and [employer]rd [employer] Apps Indication:BMI 39.0-39.9,adult Start:06-Aug-2022 Instruction Type:Patient Education Patient Instructions Indication:Non-smoker Start:30-Jan-2022 Instruction Type:Provider Instructions for Treatment How to Access Health Informa tion Online using Patient Portal and [employer] Apps Indication:Non-smoker Start:30-Jan-2022 Instruction Type:Patient Education Patient Instructions Indication:BMI 37.0-37.9, adult Start:21-Jan-2022 Instruction Type:Provider Instructions for Treatment How to Access Health Informa tion Online using Patient Portal and [employer] Apps Indication:BMI 37.0-37.9, adult Start:21-Jan-2022 Instruction Type:Patient Education Patient Instructions Indication:Non-smoker Start:24-Apr-2021 Instruction Type:Provider Instructions for Treatment How to Access Health Informa tion Online using Patient Portal and [employer] Apps Indication:Non-smoker Start:24-Apr-2021 Instruction Type:Patient Education Patient Instructions Indication:Non-smoker Start:03-Mar-2021 Instruction Type:Provider Instructions for Treatment How to Access Health Informa tion Online using Patient Portal and [employer] Apps Indication:Non-smoker Start:03-Mar-2021 Instruction Type:Patient Education How to Access Health Informa tion Online using Patient Portal and [employer] Apps Indication:Non-smoker Start:30-Dec-2020 Instruction Type:Patient Education Patient Instructions Indication:Non-smoker Start:30-Dec-2020 Instruction Type:Provider Instructions for Treatment How to Access Health Informa tion Online using Patient Portal and [employer] Apps Indication:Non-smoker Start:09-Aug-2020 Instruction Type:Patient Education Patient Instructions Indication:Non-smoker Start:09-Aug-2020 Instruction Type:Provider Instructions for Treatment How to access health informa tion online Indication:Non-smoker Start:24-May-2020 Instruction Type:Patient Education How to access health informa tion online - Detail Indication:Non-smoker Start:24-May-2020 Instruction Type:Patient Education Patient Instructions Indication:Non-smoker Start:24-May-2020 Instruction Type:Provider Instructions for Treatment How to access health informa tion online Indication:Non-smoker Start:03-May-2020 Instruction Type:Patient Education How to access health informa tion online - Detail Indication:Non-smoker Start:03-May-2020 Instruction Type:Patient Education Patient Instructions Indication:Non-smoker Start:03-May-2020 Instruction Type:Provider Instructions for Treatment How to access health informa tion online Indication:BMI 38.0-38.9,adult Start:09-Feb-2020 Instruction Type:Patient Education How to access health informa tion online - Detail Indication:BMI 38.0-38.9,adult Start:09-Feb-2020 Instruction Type:Patient Education Patient Instructions Indication:BMI 38.0-38.9,adult Start:09-Feb-2020 Instruction Type:Provider Instructions for Treatment How to access health informa tion online Indication:Non-smoker Start:19-Jan-2020 Instruction Type:Patient Education How to access health informa tion online - Detail Indication:Non-smoker Start:19-Jan-2020 Instruction Type:Patient Education Patient Instructions Indication:Non-smoker Start:19-Jan-2020 Instruction Type:Provider Instructions for Treatment [facility]; [facility] Work Phone: Instructions* Name Dates Details Patient Instructions Indication:BMI 39.0-39.9,adult Start:06-Aug-2022 Instruction Type:Provider Instructions for Treatment How to Access Health Informa tion Online using Patient Portal and [email or web address] Apps Indication:BMI 39.0-39.9,adult Start:06-Aug-2022 Instruction Type:Patient Education Patient Instructions Indication:Non-smoker Start:30-Jan-2022 Instruction Type:Provider Instructions for Treatment How to Access Health Informa tion Online using Patient Portal and [employer] Apps Indication:Non-smoker Start:30-Jan-2022 Instruction Type:Patient Education Patient Instructions Indication:BMI 37.0-37.9, adult Start:21-Jan-2022 Instruction Type:Provider Instructions for Treatment How to Access Health Informa tion Online using Patient Portal and [employer] Apps Indication:BMI 37.0-37.9, adult Start:21-Jan-2022 Instruction Type:Patient Education Patient Instructions Indication:Non-smoker Start:24-Apr-2021 Instruction Type:Provider Instructions for Treatment How to Access Health Informa tion Online using Patient Portal and [employer] Apps Indication:Non-smoker Start:24-Apr-2021 Instruction Type:Patient Education Patient Instructions Indication:Non-smoker Start:03-Mar-2021 Instruction Type:Provider Instructions for Treatment How to Access Health Informa tion Online using Patient Portal and [employer]rd [employer] Apps Indication:Non-smoker Start:03-Mar-2021 Instruction Type:Patient Education How to Access Health Informa tion Online using Patient Portal and [employer]rd [employer] Apps Indication:Non-smoker Start:30-Dec-2020 Instruction Type:Patient Education Patient Instructions Indication:Non-smoker Start:30-Dec-2020 Instruction Type:Provider Instructions for Treatment How to Access Health Informa tion Online using Patient Portal and [employer]rd [employer] Apps Indication:Non-smoker Start:09-Aug-2020 Instruction Type:Patient Education Patient Instructions Indication:Non-smoker Start:09-Aug-2020 Instruction Type:Provider Instructions for Treatment How to access health informa tion online Indication:Non-smoker Start:24-May-2020 Instruction Type:Patient Education How to access health informa tion online - Detail Indication:Non-smoker Start:24-May-2020 Instruction Type:Patient Education Patient Instructions Indication:Non-smoker Start:24-May-2020 Instruction Type:Provider Instructions for Treatment How to access health informa tion online Indication:Non-smoker Start:03-May-2020 Instruction Type:Patient Education How to access health informa tion online - Detail Indication:Non-smoker Start:03-May-2020 Instruction Type:Patient Education Patient Instructions Indication:Non-smoker Start:03-May-2020 Instruction Type:Provider Instructions for Treatment How to access health informa tion online Indication:BMI 38.0-38.9,adult Start:09-Feb-2020 Instruction Type:Patient Education How to access health informa tion online - Detail Indication:BMI 38.0-38.9,adult Start:09-Feb-2020 Instruction Type:Patient Education Patient Instructions Indication:BMI 38.0-38.9,adult Start:09-Feb-2020 Instruction Type:Provider Instructions for Treatment How to access health informa tion online Indication:Non-smoker Start:19-Jan-2020 Instruction Type:Patient Education How to access health informa tion online - Detail Indication:Non-smoker Start:19-Jan-2020 Instruction Type:Patient Education Patient Instructions Indication:Non-smoker Start:19-Jan-2020 Instruction Type:Provider Instructions for Treatment [facility]; [facility] Work Phone: Instructions* Name Dates Details Patient Instructions Indication:BMI 39.0-39.9,adult Start:06-Aug-2022 Instruction Type:Provider Instructions for Treatment How to Access Health Informa tion Online using Patient Portal and [employer]rd [employer] Apps Indication:BMI 39.0-39.9,adult Start:06-Aug-2022 Instruction Type:Patient Education Patient Instructions Indication:Non-smoker Start:30-Jan-2022 Instruction Type:Provider Instructions for Treatment How to Access Health Informa tion Online using Patient Portal and [employer]rd [employer] Apps Indication:Non-smoker Start:30-Jan-2022 Instruction Type:Patient Education Patient Instructions Indication:BMI 37.0-37.9, adult Start:21-Jan-2022 Instruction Type:Provider Instructions for Treatment How to Access Health Informa tion Online using Patient Portal and [employer]rd [employer] Apps Indication:BMI 37.0-37.9, adult Start:21-Jan-2022 Instruction Type:Patient Education Patient Instructions Indication:Non-smoker Start:24-Apr-2021 Instruction Type:Provider Instructions for Treatment How to Access Health Informa tion Online using Patient Portal and [employer]rd [employer] Apps Indication:Non-smoker Start:24-Apr-2021 Instruction Type:Patient Education Patient Instructions Indication:Non-smoker Start:03-Mar-2021 Instruction Type:Provider Instructions for Treatment How to Access Health Informa tion Online using Patient Portal and [employer]rd [employer] Apps Indication:Non-smoker Start:03-Mar-2021 Instruction Type:Patient Education How to Access Health Informa tion Online using Patient Portal and [employer]rd [employer] Apps Indication:Non-smoker Start:30-Dec-2020 Instruction Type:Patient Education Patient Instructions Indication:Non-smoker Start:30-Dec-2020 Instruction Type:Provider Instructions for Treatment How to Access Health Informa tion Online using Patient Portal and [employer]rd [employer] Apps Indication:Non-smoker Start:09-Aug-2020 Instruction Type:Patient Education Patient Instructions Indication:Non-smoker Start:09-Aug-2020 Instruction Type:Provider Instructions for Treatment How to access health informa tion online Indication:Non-smoker Start:24-May-2020 Instruction Type:Patient Education How to access health informa tion online - Detail Indication:Non-smoker Start:24-May-2020 Instruction Type:Patient Education Patient Instructions Indication:Non-smoker Start:24-May-2020 Instruction Type:Provider Instructions for Treatment How to access health informa tion online Indication:Non-smoker Start:03-May-2020 Instruction Type:Patient Education How to access health informa tion online - Detail Indication:Non-smoker Start:03-May-2020 Instruction Type:Patient Education Patient Instructions Indication:Non-smoker Start:03-May-2020 Instruction Type:Provider Instructions for Treatment How to access health informa tion online Indication:BMI 38.0-38.9,adult Start:09-Feb-2020 Instruction Type:Patient Education How to access health informa tion online - Detail Indication:BMI 38.0-38.9,adult Start:09-Feb-2020 Instruction Type:Patient Education Patient Instructions Indication:BMI 38.0-38.9,adult Start:09-Feb-2020 Instruction Type:Provider Instructions for Treatment How to access health informa tion online Indication:Non-smoker Start:19-Jan-2020 Instruction Type:Patient Education How to access health informa tion online - Detail Indication:Non-smoker Start:19-Jan-2020 Instruction Type:Patient Education Patient Instructions Indication:Non-smoker Start:19-Jan-2020 Instruction Type:Provider Instructions for Treatment [facility]; [facility] Work Phone: Instructions* Name Dates Details Patient Instructions Indication:BMI 39.0-39.9,adult Start:06-Aug-2022 Instruction Type:Provider Instructions for Treatment How to Access Health Informa tion Online using Patient Portal and [employer]rd [employer] Apps Indication:BMI 39.0-39.9,adult Start:06-Aug-2022 Instruction Type:Patient Education Patient Instructions Indication:Non-smoker Start:30-Jan-2022 Instruction Type:Provider Instructions for Treatment How to Access Health Informa tion Online using Patient Portal and [employer]rd [employer] Apps Indication:Non-smoker Start:30-Jan-2022 Instruction Type:Patient Education Patient Instructions Indication:BMI 37.0-37.9, adult Start:21-Jan-2022 Instruction Type:Provider Instructions for Treatment How to Access Health Informa tion Online using Patient Portal and 3rd [employer] Apps Indication:BMI 37.0-37.9, adult Start:21-Jan-2022 Instruction Type:Patient Education Patient Instructions Indication:Non-smoker Start:24-Apr-2021 Instruction Type:Provider Instructions for Treatment How to Access Health Informa tion Online using Patient Portal and [employer]rd [employer] Apps Indication:Non-smoker Start:24-Apr-2021 Instruction Type:Patient Education Patient Instructions Indication:Non-smoker Start:03-Mar-2021 Instruction Type:Provider Instructions for Treatment How to Access Health Informa tion Online using Patient Portal and 3rd [employer] Apps Indication:Non-smoker Start:03-Mar-2021 Instruction Type:Patient Education How to Access Health Informa tion Online using Patient Portal and [employer]rd [employer] Apps Indication:Non-smoker Start:30-Dec-2020 Instruction Type:Patient Education Patient Instructions Indication:Non-smoker Start:30-Dec-2020 Instruction Type:Provider Instructions for Treatment How to Access Health Informa tion Online using Patient Portal and 3rd [employer] Apps Indication:Non-smoker Start:09-Aug-2020 Instruction Type:Patient Education Patient Instructions Indication:Non-smoker Start:09-Aug-2020 Instruction Type:Provider Instructions for Treatment How to access health informa tion online Indication:Non-smoker Start:24-May-2020 Instruction Type:Patient Education How to access health informa tion online - Detail Indication:Non-smoker Start:24-May-2020 Instruction Type:Patient Education Patient Instructions Indication:Non-smoker Start:24-May-2020 Instruction Type:Provider Instructions for Treatment How to access health informa tion online Indication:Non-smoker Start:03-May-2020 Instruction Type:Patient Education How to access health informa tion online - Detail Indication:Non-smoker Start:03-May-2020 Instruction Type:Patient Education Patient Instructions Indication:Non-smoker Start:03-May-2020 Instruction Type:Provider Instructions for Treatment How to access health informa tion online Indication:BMI 38.0-38.9,adult Start:09-Feb-2020 Instruction Type:Patient Education How to access health informa tion online - Detail Indication:BMI 38.0-38.9,adult Start:09-Feb-2020 Instruction Type:Patient Education Patient Instructions Indication:BMI 38.0-38.9,adult Start:09-Feb-2020 Instruction Type:Provider Instructions for Treatment How to access health informa tion online Indication:Non-smoker Start:19-Jan-2020 Instruction Type:Patient Education How to access health informa tion online - Detail Indication:Non-smoker Start:19-Jan-2020 Instruction Type:Patient Education Patient Instructions Indication:Non-smoker Start:19-Jan-2020 Instruction Type:Provider Instructions for Treatment [facility] Work Phone: Family History Unknown Family Member Name Dates Details Maternal Grandfather Comments:heart disease enlar ged heart Status:Active Mother Comments:heart disease Status:Active Unknown Family Member Name Dates Details Maternal Grandfather Comments:heart disease enlar ged heart Status:Active Mother Comments:heart disease Status:Active Unknown Family Member Name Dates Details Maternal Grandfather Comments:heart disease enlar ged heart Status:Active Mother Comments:heart disease Status:Active Unknown Family Member Name Dates Details Maternal Grandfather Comments:heart disease enlar ged heart Status:Active Mother Comments:heart disease Status:Active Unknown Family Member Name Dates Details Maternal Grandfather Comments:heart disease enlar ged heart Status:Active Mother Comments:heart disease Status:Active Unknown Family Member Name Dates Details Maternal Grandfather Comments:heart disease enlar ged heart Status:Active Mother Comments:heart disease Status:Active Unknown Family Member Name Dates Details Maternal Grandfather Comments:heart disease enlar ged heart Status:Active Mother Comments:heart disease Status:Active Unknown Family Member Name Dates Details Maternal Grandfather Comments:heart disease enlar ged heart Status:Active Mother Comments:heart disease Status:Active Unknown Family Member Name Dates Details Maternal Grandfather Comments:heart disease enlar ged heart Status:Active Mother Comments:heart disease Status:Active Unknown Family Member Name Dates Details Maternal Grandfather Comments:heart disease enlar ged heart Status:Active Mother Comments:heart disease Status:Active Unknown Family Member Name Dates Details Maternal Grandfather Comments:heart disease enlar ged heart Status:Active Mother Comments:heart disease Status:Active Unknown Family Member Name Dates Details Maternal Grandfather Comments:heart disease enlar ged heart Status:Active Mother Comments:heart disease Status:Active Unknown Family Member Name Dates Details Maternal Grandfather Comments:heart disease enlar ged heart Status:Active Mother Comments:heart disease Status:Active Unknown Family Member Name Dates Details Maternal Grandfather Comments:heart disease enlar ged heart Status:Active Mother Comments:heart disease Status:Active Unknown Family Member Name Dates Details Maternal Grandfather Comments:heart disease enlar ged heart Status:Active Mother Comments:heart disease Status:Active Unknown Family Member Name Dates Details Maternal Grandfather Comments:heart disease enlar ged heart Status:Active Mother Comments:heart disease Status:Active Unknown Family Member Name Dates Details Maternal Grandfather Comments:heart disease enlar ged heart Status:Active Mother Comments:heart disease Status:Active Unknown Family Member Name Dates Details Maternal Grandfather Comments:heart disease enlar ged heart Status:Active Mother Comments:heart disease Status:Active Unknown Family Member Name Dates Details Maternal Grandfather Comments:heart disease enlar ged heart Status:Active Mother Comments:heart disease Status:Active Unknown Family Member Name Dates Details Maternal Grandfather Comments:heart disease enlar ged heart Status:Active Mother Comments:heart disease Status:Active Unknown Family Member Name Dates Details Maternal Grandfather Comments:heart disease enlar ged heart Status:Active Mother Comments:heart disease Status:Active Unknown Family Member Name Dates Details Maternal Grandfather Comments:heart disease enlar ged heart Status:Active Mother Comments:heart disease Status:Active Unknown Family Member Name Dates Details Maternal Grandfather Comments:heart disease enlar ged heart Status:Active Mother Comments:heart disease Status:Active Unknown Family Member Name Dates Details Maternal Grandfather Comments:heart disease enlar ged heart Status:Active Mother Comments:heart disease Status:Active Unknown Family Member Name Dates Details Maternal Grandfather Comments:heart disease enlar ged heart Status:Active Mother Comments:heart disease Status:Active Unknown Family Member Name Dates Details Maternal Grandfather Comments:heart disease sonny albarran heart Status:Active Mother Comments:heart disease Status:Active Instructions Name Dates Details How to access health informa tion online Indication:Non-smoker Start:19-Jan-2020 Instruction Type:Patient Education How to access health informa tion online - Detail Indication:Non-smoker Start:19-Jan-2020 Instruction Type:Patient Education Patient Instructions Indication:Non-smoker Start:19-Jan-2020 Instruction Type:Provider Instructions for Treatment Name Dates Details How to access health informa tion online Indication:BMI 38.0-38.9,adult Start:09-Feb-2020 Instruction Type:Patient Education How to access health informa tion online - Detail Indication:BMI 38.0-38.9,adult Start:09-Feb-2020 Instruction Type:Patient Education Patient Instructions Indication:BMI 38.0-38.9,adult Start:09-Feb-2020 Instruction Type:Provider Instructions for Treatment How to access health informa tion online Indication:Non-smoker Start:19-Jan-2020 Instruction Type:Patient Education How to access health informa tion online - Detail Indication:Non-smoker Start:19-Jan-2020 Instruction Type:Patient Education Patient Instructions Indication:Non-smoker Start:19-Jan-2020 Instruction Type:Provider Instructions for Treatment Name Dates Details How to access health informa tion online Indication:Non-smoker Start:03-May-2020 Instruction Type:Patient Education How to access health informa tion online - Detail Indication:Non-smoker Start:03-May-2020 Instruction Type:Patient Education Patient Instructions Indication:Non-smoker Start:03-May-2020 Instruction Type:Provider Instructions for Treatment How to access health informa tion online Indication:BMI 38.0-38.9,adult Start:09-Feb-2020 Instruction Type:Patient Education How to access health informa tion online - Detail Indication:BMI 38.0-38.9,adult Start:09-Feb-2020 Instruction Type:Patient Education Patient Instructions Indication:BMI 38.0-38.9,adult Start:09-Feb-2020 Instruction Type:Provider Instructions for Treatment How to access health informa tion online Indication:Non-smoker Start:19-Jan-2020 Instruction Type:Patient Education How to access health informa tion online - Detail Indication:Non-smoker Start:19-Jan-2020 Instruction Type:Patient Education Patient Instructions Indication:Non-smoker Start:19-Jan-2020 Instruction Type:Provider Instructions for Treatment Name Dates Details How to Access Health Informa tion Online using Patient Portal and [employer] Apps Indication:Non-smoker Start:09-Aug-2020 Instruction Type:Patient Education Patient Instructions Indication:Non-smoker Start:09-Aug-2020 Instruction Type:Provider Instructions for Treatment How to access health informa tion online Indication:Non-smoker Start:24-May-2020 Instruction Type:Patient Education How to access health informa tion online - Detail Indication:Non-smoker Start:24-May-2020 Instruction Type:Patient Education Patient Instructions Indication:Non-smoker Start:24-May-2020 Instruction Type:Provider Instructions for Treatment How to access health informa tion online Indication:Non-smoker Start:03-May-2020 Instruction Type:Patient Education How to access health informa tion online - Detail Indication:Non-smoker Start:03-May-2020 Instruction Type:Patient Education Patient Instructions Indication:Non-smoker Start:03-May-2020 Instruction Type:Provider Instructions for Treatment How to access health informa tion online Indication:BMI 38.0-38.9,adult Start:09-Feb-2020 Instruction Type:Patient Education How to access health informa tion online - Detail Indication:BMI 38.0-38.9,adult Start:09-Feb-2020 Instruction Type:Patient Education Patient Instructions Indication:BMI 38.0-38.9,adult Start:09-Feb-2020 Instruction Type:Provider Instructions for Treatment How to access health informa tion online Indication:Non-smoker Start:19-Jan-2020 Instruction Type:Patient Education How to access health informa tion online - Detail Indication:Non-smoker Start:19-Jan-2020 Instruction Type:Patient Education Patient Instructions Indication:Non-smoker Start:19-Jan-2020 Instruction Type:Provider Instructions for Treatment Name Dates Details How to access health informa tion online Indication:Non-smoker Start:24-May-2020 Instruction Type:Patient Education How to access health informa tion online - Detail Indication:Non-smoker Start:24-May-2020 Instruction Type:Patient Education Patient Instructions Indication:Non-smoker Start:24-May-2020 Instruction Type:Provider Instructions for Treatment How to access health informa tion online Indication:Non-smoker Start:03-May-2020 Instruction Type:Patient Education How to access health informa tion online - Detail Indication:Non-smoker Start:03-May-2020 Instruction Type:Patient Education Patient Instructions Indication:Non-smoker Start:03-May-2020 Instruction Type:Provider Instructions for Treatment How to access health informa tion online Indication:BMI 38.0-38.9,adult Start:09-Feb-2020 Instruction Type:Patient Education How to access health informa tion online - Detail Indication:BMI 38.0-38.9,adult Start:09-Feb-2020 Instruction Type:Patient Education Patient Instructions Indication:BMI 38.0-38.9,adult Start:09-Feb-2020 Instruction Type:Provider Instructions for Treatment How to access health informa tion online Indication:Non-smoker Start:19-Jan-2020 Instruction Type:Patient Education How to access health informa tion online - Detail Indication:Non-smoker Start:19-Jan-2020 Instruction Type:Patient Education Patient Instructions Indication:Non-smoker Start:19-Jan-2020 Instruction Type:Provider Instructions for Treatment Name Dates Details How to access health informa tion online Indication:Non-smoker Start:24-May-2020 Instruction Type:Patient Education How to access health informa tion online - Detail Indication:Non-smoker Start:24-May-2020 Instruction Type:Patient Education Patient Instructions Indication:Non-smoker Start:24-May-2020 Instruction Type:Provider Instructions for Treatment How to access health informa tion online Indication:Non-smoker Start:03-May-2020 Instruction Type:Patient Education How to access health informa tion online - Detail Indication:Non-smoker Start:03-May-2020 Instruction Type:Patient Education Patient Instructions Indication:Non-smoker Start:03-May-2020 Instruction Type:Provider Instructions for Treatment How to access health informa tion online Indication:BMI 38.0-38.9,adult Start:09-Feb-2020 Instruction Type:Patient Education How to access health informa tion online - Detail Indication:BMI 38.0-38.9,adult Start:09-Feb-2020 Instruction Type:Patient Education Patient Instructions Indication:BMI 38.0-38.9,adult Start:09-Feb-2020 Instruction Type:Provider Instructions for Treatment How to access health informa tion online Indication:Non-smoker Start:19-Jan-2020 Instruction Type:Patient Education How to access health informa tion online - Detail Indication:Non-smoker Start:19-Jan-2020 Instruction Type:Patient Education Patient Instructions Indication:Non-smoker Start:19-Jan-2020 Instruction Type:Provider Instructions for Treatment Name Dates Details How to access health informa tion online Indication:Non-smoker Start:03-May-2020 Instruction Type:Patient Education How to access health informa tion online - Detail Indication:Non-smoker Start:03-May-2020 Instruction Type:Patient Education Patient Instructions Indication:Non-smoker Start:03-May-2020 Instruction Type:Provider Instructions for Treatment How to access health informa tion online Indication:BMI 38.0-38.9,adult Start:09-Feb-2020 Instruction Type:Patient Education How to access health informa tion online - Detail Indication:BMI 38.0-38.9,adult Start:09-Feb-2020 Instruction Type:Patient Education Patient Instructions Indication:BMI 38.0-38.9,adult Start:09-Feb-2020 Instruction Type:Provider Instructions for Treatment How to access health informa tion online Indication:Non-smoker Start:19-Jan-2020 Instruction Type:Patient Education How to access health informa tion online - Detail Indication:Non-smoker Start:19-Jan-2020 Instruction Type:Patient Education Patient Instructions Indication:Non-smoker Start:19-Jan-2020 Instruction Type:Provider Instructions for Treatment Name Dates Details How to Access Health Informa tion Online using Patient Portal and [employer] Apps Indication:Non-smoker Start:09-Aug-2020 Instruction Type:Patient Education Patient Instructions Indication:Non-smoker Start:09-Aug-2020 Instruction Type:Provider Instructions for Treatment How to access health informa tion online Indication:Non-smoker Start:24-May-2020 Instruction Type:Patient Education How to access health informa tion online - Detail Indication:Non-smoker Start:24-May-2020 Instruction Type:Patient Education Patient Instructions Indication:Non-smoker Start:24-May-2020 Instruction Type:Provider Instructions for Treatment How to access health informa tion online Indication:Non-smoker Start:03-May-2020 Instruction Type:Patient Education How to access health informa tion online - Detail Indication:Non-smoker Start:03-May-2020 Instruction Type:Patient Education Patient Instructions Indication:Non-smoker Start:03-May-2020 Instruction Type:Provider Instructions for Treatment How to access health informa tion online Indication:BMI 38.0-38.9,adult Start:09-Feb-2020 Instruction Type:Patient Education How to access health informa tion online - Detail Indication:BMI 38.0-38.9,adult Start:09-Feb-2020 Instruction Type:Patient Education Patient Instructions Indication:BMI 38.0-38.9,adult Start:09-Feb-2020 Instruction Type:Provider Instructions for Treatment How to access health informa tion online Indication:Non-smoker Start:19-Jan-2020 Instruction Type:Patient Education How to access health informa tion online - Detail Indication:Non-smoker Start:19-Jan-2020 Instruction Type:Patient Education Patient Instructions Indication:Non-smoker Start:19-Jan-2020 Instruction Type:Provider Instructions for Treatment Summary Purpose Advance Directives No Advanced Directives Records FoundNo Advanced Directives Records Found Additional Source Comments INFORMATION SOURCE (unrecogn ized section and content) DATE CREATED AUTHOR AUTHOR'S ORGANKIT ATION 07/21/2022 [facility] [place] FOR RECORDS PERTAINING TO PATIENTS WHO ARE OR HAVE BEEN ENROLLED IN A CHEMICAL DEPENDENCY/SUBSTANCEABUSE PROGRAM, SOME INFORMATION MAY BE OMITTED. This clinical summary was aggregated from multiple sources. Caution should be exercised in using it in the provision of clinical care. This summary normalizes information from multiple sources, and as a consequence, information in this document may materially change the coding, format and clinical context of patient data. In addition, data may be omitted in some cases. CLINICAL DECISIONS SHOULD BE BASED ON THE PRIMARY CLINICAL RECORDS. [employer] provides no warranty or guarantee of the accuracy or completeness of information in this document.
== END | disposition home or self-care (01) ==
LOC: OPBI 09:05
PROVIDERS: PCP Internal Medicine; Referring Provider Internal Medicine; Visit Provider Internal Medicine
DX: Z12.31 Encounter for screening mammogram for malignant neoplasm of breast (principal)
CPT/HCPCS: 77063; 77067

== ENCOUNTER → 2024-01-05 | Outpatient (CLI) | payer OTHER, SELFPAY ==
[2024-01-05 18:08] LABS: Hemoglobin A1c 5.2 % (3.8-5.6)
== END | disposition home or self-care (01) ==
LOC: MTLAB 16:31
PROVIDERS: PCP Internal Medicine; Referring Provider Internal Medicine; Visit Provider Internal Medicine
DX: R73.9 Hyperglycemia, unspecified (principal)
CPT/HCPCS: 36415; 83036

== ENCOUNTER 2024-01-19 11:59 | Day surgery (SDC) | payer OTHER, SELFPAY ==
[2024-01-19] VITALS (8 sets, daily range): BP systolic 101–132; BP diastolic 60–86; PULSE 70–93; RESP 16–17; TEMP 36–36.4; O2SAT 96–98; BMI 38.7
[2024-01-19] MEDS: Lactated Ringers 1,000 ML 15 ML IV (12:20)
--- NOTE | 2024-01-19 12:32 | PCM.PRE.AN2 ---
ASA Classification* ASA Classification ASA Classification: 2 Assessment & Plan Anesthesia* Anesthesia Assessment Anesthesia Assessment: Discussed sedation and/or anesthesia options, risks, benefits, and alternatives with patient/parents/legal guardian/POA. Questions invited. The patient/parents/legal guardian/POA seems to understand and agrees to proceed with anesthesia plan. Reviewed the physical assessment, medical history, allergy history and patient home medications list prior to surgery/procedure/anesthetic and documented any changes. Performed airway and anesthesia risk assessments. Procedural Plan Procedural Plan:: Proceed w/ Anesthesia plan Anesthesia Type Anesthesia Type: MAC History Source History Obtained from:: Patient and Chart Anesthesia Focused Assessment* Temperature: 97.6 F Pulse Rate: 92 Blood Pressure: 132/86 Respiratory Rate: 17 Pulse Ox: 96 Airway Assessment Mouth opens: >3 cm Mallampati Score: II Teeth Condition: Intact Neck Range of motion (ROM): Full ROM Pertinent Findings EKG Pertinent Findings:: December 24, 2022. Normal sinus rhythm. Septal and inferior infarct age undetermined. Focused Labs Anesthesia Preop lab: CBC WBC 9.8 K/mm3 (4.4-11.0) 12/24/22 13:38 RBC 4.82 M/mm3 (4.2-5.4) 12/24/22 13:38 Hgb 13.7 g/dL (12.0-15.0) 12/24/22 13:38 Hct 40.5 % (37-47) 12/24/22 13:38 Plt Count 315 K/mm3 (150-450) 12/24/22 13:38 CHEMISTRY Potassium 3.9 mmol/L (3.5-5.1) 12/24/22 13:38 Sodium 139 mmol/L (136-145) 12/24/22 13:38 BUN 20 mg/dL (7-18) H 12/24/22 13:38 Creatinine 0.71 mg/dL (0.55-1.02) 12/24/22 13:38 Glucose 100 mg/dL (74-106) 12/24/22 13:38 COAG Urine Test Negative Negative 03/12/20 10:42 Pre-Assessment Diagnosis/Proposed Procedure Planned Operative Procedure(s): COLONOSCOPY Anesthesia History Anesthesia History - trim sawyer: Anesthesia History - trim sawyer Hx Hospitalization No 01/14/24 11:02 Any Problems With Anesthesia No 01/14/24 11:02 Cholinesterase deficiency No 01/14/24 11:02 You/Your Family Experience No 01/14/24 11:02 fever (hyperthermia) with Relationship Recent Exposure to Contagious No 01/19/24 12:21 Disease Does patient have nerve No 01/14/24 11:02 stimulator Patient instructed to have device shut off --Does patient have Pacemaker No 01/19/24 12:21 or ICD? When Was Last Pacemaker Check QUESTION #4 FULL TEXT: You/Your Family Experience fever (hyperthermia) with Anesthesia Last Oral Intake Last Oral intake: Last Oral Intake NPO since 08:30 01/19/24 12:21 Meds taken in AM with sips of Yes 01/19/24 12:21 water? Meds patient instructed to lisniopril 01/19/24 12:21 take am of surgery Any additional information?: Yes NPO since: 09:00 Meds patient instructed to take am of surgery: Prep completed 9:00 PONV PONV - trim sawyer: PONV - trim sawyer Female Yes 01/14/24 11:02 HX of Motion Sickness No 01/14/24 11:02 HX of N/V After Surgery No 01/14/24 11:02 Non-Smoker Yes 01/14/24 11:02 Duration of Surgery greater No 01/14/24 11:02 than 60 minutes Number of Risk Factors 2 01/14/24 11:02 PONV Score Moderate Risk 01/14/24 11:02 Height & Weight Height & Weight: Anesthesia: Height & Weight Height 5 ft 7 in 01/19/24 12:21 Weight: 112 kg 01/19/24 12:21 Body Mass Index (BMI) 38.7 01/19/24 12:21 Respiratory Assessment Respiratory Assessment - trim sawyer: Respiratory Tract Infection Hx - trim sawyer Hx Respiratory Tract Infection No 01/14/24 11:02 STOP Sleep Apnea STOP Sleep Apnea - trim sawyer: STOP Sleep Apnea - trim sawyer Hx Hypertension Yes: CONTROLLED WITH MED 01/14/24 11:02 Hx Sleep Apnea No 01/14/24 11:02 CPAP BIPAP Do you snore loudly (louder No 01/14/24 11:02 than talking or can be heard Do you often feel tired/ No 01/14/24 11:02 fatigued/ sleepy during daytime? Has anyone observed you stop No 01/14/24 11:02 breathing during sleep? STOP Results Negative 01/14/24 11:02 QUESTION #5 FULL TEXT : Do you snore loudly (louder than talking or can be heard through closed doors)? Tobacco Use History Tobacco Use History - trim sawyer: Tobacco Use History - trim sawyer Tobacco Use Smoking Status Never smoker 01/14/24 11:02 Hx Tobacco Use No 01/14/24 11:02 Years Smoking Packs Smoked per Day Smoking Cessation Date was within the last 15 years Hx Smoking Cessation Date Hx Smoking Cessation Counseling Hematologic Medial History Hematologic Hx - trim sawyer: Hematologic Medical Hx - coil wrapper Hx of Blood Transfusion No 01/14/24 11:02 Hx of Transfusion in last 3 No 01/14/24 11:02 Months Date of Last Transfusion (if within last 3 months) Ever experience any problems No 01/14/24 11:02 with transfusion(s)? Specify any problems Hx of Preganancy in last 3 No 01/14/24 11:02 Months Nurse Filling Out Transfusion MGRIFFITH 01/14/24 11:02 & Questions: Date: 01/14/24 01/14/24 11:02 Time: 11:03 01/14/24 11:02 Patient unable to answer at this time (ie. confused, unrespo /Reproduction History /Reproductive History - trim sawyer: /Reproductive Hx- trim sawyer Hx Now No 01/14/24 11:02 Gestational Age (in weeks): EDC: Hx Hx Para Hx Section SAB No 01/14/24 11:02 Active Medications Active Medications: Current Medications Generic Name Dose Route Start Last Admin Trade Name Freq PRN Reason Stop Dose Admin Lactated Ringer's 1,000 mls @ 15 mls/hr 01/19/24 12:15 01/19/24 12:20 IV 15 mls/hr .Q48H ANU Administration PFSH Medical History Wears glasses Alcohol use Family hx of colon cancer Wears contact lenses Gastric reflux Non-smoker Hypertension Home Medications ?Medication ?Instructions ?Recorded ?Last Taken ?Type lansoprazole 30 mg capsule,delayed 30 mg PO DAILY 12/23/22 01/18/24 History release lisinopril 20 mg tablet 20 mg PO BID 12/23/22 01/19/24 History venlafaxine 75 mg capsule,extended 75 mg PO DAILY #30 caps 01/03/24 01/18/24 Rx release 24 hr (Effexor XR) Allergy/AdvReac Type Severity Reaction Status Date / Time No Known Allergies Allergy Verified 01/19/24 12:20 Family History (Updated 01/06/24 @ 08:42 by China Carr) Grandfather Heart disease Colon cancer Mother Heart disease Surgical History History of sinus surgery History of History of endometrial ablation H/O dilation and curettage History of tonsillectomy History of tubal ligation Social History household members: spouse housing: house number of children: 2 current occupational status: employed 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
--- NOTE | 2024-01-19 13:17 | H&P.OPEN ---
HPI - General HPI Narrative LORETTA LEMUS, is a 53 F who presents for screening colonoscopy. She has never had a colonoscopy in the past. She denies abdominal pain or blood in the stool. She has family history of colon cancer in her grandfather only. [facility] Medical History Wears glasses Alcohol use Family hx of colon cancer Wears contact lenses Gastric reflux Non-smoker Hypertension Home Medications ?Medication ?Instructions ?Recorded ?Last Taken ?Type lansoprazole 30 mg capsule,delayed 30 mg PO DAILY 12/23/22 01/18/24 History release lisinopril 20 mg tablet 20 mg PO BID 12/23/22 01/19/24 History venlafaxine 75 mg capsule,extended 75 mg PO DAILY #30 caps 01/03/24 01/18/24 Rx release 24 hr (Effexor XR) Allergy/AdvReac Type Severity Reaction Status Date / Time No Known Allergies Allergy Verified 01/19/24 12:20 Family History (Updated 01/06/24 @ 08:42 by China Carr) Grandfather Heart disease Colon cancer Mother Heart disease Surgical History History of sinus surgery History of History of endometrial ablation H/O dilation and curettage History of tonsillectomy History of tubal ligation Social History household members: spouse housing: house number of children: 2 current occupational status: employed 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 travel: No sexually active: Yes Smoking Status: Never smoker alcohol intake: current alcohol intake frequency: holidays/special occasions only substance use type: does not use well-balanced diet: daily or most days caffeine: Yes (1 q d) what type of physical activity do you participate in: walking frequency: 1-2 times per week seatbelt use: always do you feel safe at home: Yes additional social history: - Mele Past Medical/Surgical History Planned Operation Planned Operative Procedure(s): COLONOSCOPY S.O.S: No Previous Hospitalizations/Surgeries HX Hospitalizations: No HX of Surgeries: teeth extraction tonsillectomy as child Any Problems With Anesthesia: No You/Your Family Experience Fever (Hyperthermia) With Anes: No Cholinesterase deficiency: No Cardiovascular Hx Chest Pain within Last 2 months: No Hx of Irregular Heartbeat and/or Afib: No Hx Heart Attack: No Hx Congestive Heart Failure: No Hx Rheumatic Fever: No Hx Hypertension: Yes (CONTROLLED WITH MED) Hx Internal Defibrillator: No Hx Pacemaker: No Hx Cardiac Catheterization: No Hx Cardiac Surgery/Stents/Etc.: No Hx Stress Test: No Hx Pain in Legs when Walking/Leg Cramps: No Respiratory Chronic Cough: No HX of Shortness of Breath: No Hoarseness: No Hx Chronic Obstructive Pulmonary Disease (COPD): No Hx Asthma: No Hx Emphysema: No Hx Sleep Apnea: No Hx Respiratory Tract Infection/Cold (presently): No Do You Snore Loudly (louder than talking or can be heard): No Do You Often Feel Tired/ Fatigued/ Sleepy Dring Daytime?: No Has Anyone Observed You Stop Breathing During Sleep?: No Result (for STOP score): Negative Hx Smoking: No Smoking Status: Never smoker Gastrointestinal Hx Gastrointestinal Disorders: No Hx Gastrointestinal Bleed: No Hx Ulcer: No Hx Hiatal Hernia: No Difficulty Chewing/Swallowing: No Special diet followed at home: No Hx Unplanned Weight Loss of 20#: No HX Unplanned Weight Gain of 20#: No Neurological Hx Seizures: No HX Syncope/Blackout Spells/Unconsciousness: No Hx Transient Ischemic Attacks (TIA): No Hx Multiple Sclerosis: No Hx Parkinson's Disease: No Hx Head/Neck Injury: No Hx Headaches: No Hx Back Injury/Pain: No Recent Onset of Speech Difficulty: No Restless Legs: No Does patient have nerve stimulator: No Blood Disorder Hx Leukemia: No Bleeding Tendencies: No Hx Deep Vein Thrombosis: No Hx High Cholesterol: No Blood Transmitted Disease: No Hx Hepatitis: No Hx Cirrhosis: No Hx Anemia: No Hx Blood Disorders: No Reproduction : No Is Patient Lactating: No Hx Hysterectomy: No Hx Tubal Ligation: No Are You Post Menopause: No Genitourinary Hx Renal Disease: No Musculoskeletal Hx Arthritis: No Hx Rheumatoid Arthritis: No Hx Gout: No Recent Onset of an Orthopedic Problem: No Endocrine Hx Diabetes: No Thyroid Disease: No Hx Steroid Therapy: No Psycho/Social Hx Substance Use: No Hx Alcohol Use: Yes (occ) Hx Anxiety: No Hx Depression: No Mental Illness: No Hx Dementia: No Miscellaneous Hx Cancer: No Recent Exposure to Contagious Disease: No Hx of C-Diff: No Any Loose Teeth: No Allergies No Known Allergies Allergy (Verified 01/19/24 12:20) Discharge Is Pt Admitted From a [facility], or a [facility]: No Who Could Help: SPOUSE After D/C, Where Do you Plan to Go: Return Home Vital Signs Vital Signs Vital Signs: 01/19/24 12:21 01/19/24 12:21 01/19/24 12:34 Temperature 97.6 F L 97.6 F L Temperature Source Temporal Pulse Rate 92 92 Respiratory Rate 17 17 Respiratory Pattern Normal Blood Pressure 132/86 H 132/86 H Blood Pressure Mean 101 Blood Pressure Source Monitor Blood Pressure Position Semi-Fowlers Blood Pressure Location Left Arm Pulse Ox 96 96 Oxygen Delivery Method Room Air Weight Weight: 246 lb 14.684 oz Body Mass Index (BMI) 38.7 Physical Exam Const alert and oriented x3 HEENT normocephalic Eyes PERRL Resp normal respiratory effort and normal air movement Cardio regular rate and regular rhythm GI soft to palpation, non-tender and non-distended Extremity normal to inspection Assessment & Plan Assessment/Plan (1) Encounter for screening for malignant neoplasm of colon: PLAN: I explained endoscopy in detail to the patient. I explained the risks including but not limited to stroke or heart attack with anesthesia, perforation of the GI tract, bleeding, infection. I explained that any of these could necessitate further emergency surgery. The patient understands and all questions were answered sufficiently. The patient wishes to proceed with procedure. Jeremiah Ramos MD Pager: [facility] [address] [place] [address], [address] [place] [address] Office: Surgery Risks - Colonoscopy Risks Include but are not Limited To: Risks include but are not limited to: Bleeding, perforation requiring further surgery, inability to complete colonoscopy requiring barium enema.
--- NOTE | 2024-01-19 13:48 | PCM.POST.ANE ---
Anesthesia: Postop Eval I Current Vital Signs Temperature: 97 F Pulse Rate: 82 Blood Pressure: 106/60 Respiratory Rate: 16 Pulse Ox: 98 Oxygen Delivery Method: Room Air Assessment Airway patent: Yes Spontaneous unlabored respirations: Yes Mental status: Awake and Calm nausea: No Vomiting: No Anesthesia Complication: No Fluid Hydration Crystalloid volume administer (ml): 500 Total IV fluid infused: 500 Progress Note Anesthesia document: Postop Eval 1 completed: Yes
--- NOTE | 2024-01-19 13:50 | OP.CCLET_ITS ---
01/19/2024 Jazmin Mann [address] [place] [address] Re : Colonoscopy procedure for Norma Virgen Dear Dr. Mann This procedure was performed on Friday, January 19, 2024. My impressions and recommendations are as follows: Impressions : - The entire examined colon is normal on direct and retroflexion views. - No specimens collected. Recommendations : - Discharge patient to home. - Resume previous diet. - Continue present medications. - Repeat colonoscopy in 10 years for screening purposes. My findings are described in the full procedure note, which is enclosed. If I can be of further assistance, please feel free to contact me at Doctor phone number(s): , Work: . Sincerely, Jeremiah Ramos MD 01/19/2024 1:49:40 PM This report has been signed electronically.
--- NOTE | 2024-01-19 13:50 | OP.COLON_ITS ---
Patient Name: Norma Virgen Procedure Date: 01/19/2024 1:10 PM Date of : 1970 Age: 53 Procedure: Colonoscopy Indications: Screening for colorectal malignant neoplasm Providers: Jeremiah Ramos MD Referring MD: Jazmin Mann Medicines: Propofol per Anesthesia Patient Profile: This is a 53 year old female. Refer to note in patient chart for documentation of history and physical. Last Colonoscopy: none. The patient's first colonoscopy is today. Complications: No immediate complications. Procedure: Pre-Anesthesia Assessment: - Prior to the procedure, a History and Physical was performed, and patient medications and allergies were reviewed. The patient's tolerance of previous anesthesia was also reviewed. The risks and benefits of the procedure and the sedation options and risks were discussed with the patient. All questions were answered, and informed consent was obtained. Prior Anticoagulants: The patient has taken no anticoagulant or antiplatelet agents. After reviewing the risks and benefits, the patient was deemed in satisfactory condition to undergo the procedure. After I obtained informed consent, the scope was passed under direct vision. Throughout the procedure, the patient's blood pressure, pulse, and oxygen saturations were monitored continuously. The Colonoscope was introduced through the anus and advanced to the cecum, identified by appendiceal orifice and ileocecal valve. The colonoscopy was performed without difficulty. The patient tolerated the procedure well. The quality of the bowel preparation was good. The ileocecal valve, appendiceal orifice, and rectum were photographed. Scope In: 1:30:54 PM Scope Withdrawal Time 0 hours 6 minutes 1 second Scope Out: 1:44:40 PM Total Procedure Duration Time 0 hours 13 minutes 46 seconds Findings: The entire examined colon appeared normal on direct and retroflexion views. Impression: - The entire examined colon is normal on direct and retroflexion views. - No specimens collected. Recommendation: - Discharge patient to home. - Resume previous diet. - Continue present medications. - Repeat colonoscopy in 10 years for screening purposes. Procedure Code(s): --- Professional --- 84013, Colonoscopy, flexible; diagnostic, including collection of specimen(s) by brushing or washing, when performed (separate procedure) Diagnosis Code(s): --- Professional --- Z12.11, Encounter for screening for malignant neoplasm of colon CPT copyright 2021 [employer]. All rights reserved. The codes documented in this report are preliminary and upon solutions sales consultant review may be revised to meet current compliance requirements. Jeremiah Ramos MD 01/19/2024 1:49:40 PM This report has been signed electronically. Number of Addenda: 0 Note Initiated On: 01/19/2024 1:10 PM
--- NOTE | 2024-01-19 15:45 | PCM.POSTANE2 ---
Anesthesia Postop Eval I Sum Postop Eval Completion status Anesthesia document: Postop Eval 1 completed: Yes Anesthesia Postop Eval I Summary Anesthesia Postop Eval I Summary: Anesthesia Postop Eval I: Assessment Summary Airway patent Yes 01/19/24 13:51 [email or web address] Spontaneous unlabored Yes 01/19/24 13:51 [email or web address] respirations Mental status Awake,Calm 01/19/24 13:51 [email or web address] nausea No 01/19/24 13:51 [email or web address] Vomiting No 01/19/24 13:51 [email or web address] Anesthesia Postop Eval I: Fluid Summary Crystalloid volume administer 500 01/19/24 13:51 [email or web address] (ml) Colloids volume administered ( ml) Blood Product volume administered (ml) Total IV fluid infused 500 01/19/24 13:51 [email or web address] Anesthesia Postop Eval I: Summary Notes Anesthesia Complication No 01/19/24 13:51 [email or web address] Anesthesia Complication Comment: Post-operative progress note Anesthesia: Postop Eval II Evaluation Mental status: Awake and Calm Pain Level: 0 nausea: No Vomiting: No Complications Anesthesia Complication: No
== END 2024-01-19 14:22 | disposition home or self-care (01) ==
LOC: EN 11:59 → AC 12:00
PROVIDERS: PCP Internal Medicine; Referring Provider Internal Medicine; Visit Provider Surgery
PROC: 0DJD8ZZ Inspection of Lower Intestinal Tract, Via Natural or Artificial Opening Endoscopic (ICD-10-PCS; CPT 45378; principal; 2024-01-19 12:55)
DX: Z12.11 Encounter for screening for malignant neoplasm of colon (principal); I10 Essential (primary) hypertension; K21.9 Gastro-esophageal reflux disease without esophagitis; Z79.899 Other long term (current) drug therapy; Z98.51 Tubal ligation status
CPT/HCPCS: 45378; J7120; J2405

== ENCOUNTER → 2024-07-24 | Outpatient (CLI) | payer OTHER, SELFPAY ==
--- NOTE | 2024-07-24 09:09 | BI_ITS ---
MAMMOGRAPHY - BILATERAL SCREENING 3-D TOMOSYNTHESIS REASON FOR EXAM: Female, 53 years old. screening mammogram PERTINENT HISTORY: No significant family history. TECHNIQUE: 2-D mammograms and 3-D Tomosynthesis of the breast (s) were performed. CAD was performed. COMPARISON: 07/23/2023 FINDINGS: The breast composition is composed of scattered fibroglandular density. Scattered benign calcifications are seen. No dense spiculated masses or suspicious microcalcifications are identified. No architectural distortion is identified. There is no skin thickening or retraction. There has been no significant change since the prior study. BI/SCRN MAMM (CAD)W/LUPE BILAT IMPRESSION: No mammographic signs of malignancy. Routine yearly mammograms recommended. ASSESSMENT CATEGORY: BIRADS Category 1: Negative. A letter regarding these results will be sent to the patient by the facility within 30 days. FOLLOW UP RECOMMENDATION: Yearly follow up mammogram recommended. (A) Approximately 10% of breast cancers are not detected by mammography. A normal mammogram should not delay biopsy of a clinically suspicious abnormality. Electronically Signed: Abhishek Pruitt MD at 20:42 EST ,
== END | disposition home or self-care (01) ==
PROVIDERS: PCP Internal Medicine; Referring Provider Internal Medicine; Visit Provider Internal Medicine
DX: Z12.31 Encounter for screening mammogram for malignant neoplasm of breast (principal)
CPT/HCPCS: 77063; 77067

== ENCOUNTER → 2025-03-13 | Outpatient (CLI) | payer OTHER, SELFPAY ==
--- NOTE | 2025-03-13 14:53 | CT_ITS ---
PROCEDURE: LIMITED CHEST CT CARDIAC ONLY 03/13/2025 REASON FOR EXAM: FAMILY HX OF CARDIOVASCULAR DZ Hypertension TECHNIQUE: LIMITED CHEST CT CARDIAC ONLY CONTRAST: None One or more dose reduction techniques were used (e.g., Automated exposure control, adjustment of the mA and/or kV according to patient size, use of iterative reconstruction technique). RADIATION DOSE SUMMARY: CTDlvol: 12.19 mGy DLP: 170.66 mGycm COMPARISON: None FINDINGS: Coronary artery calcification. The heart is not enlarged. Small to moderate-sized hiatal hernia. The lungs are clear. CT/Limited Chest CT Cardiac Only IMPRESSION: Coronary artery calcification. Reading Location: [facility]
--- NOTE | 2025-03-13 15:25 | CA.SCORE ---
Calcium Scoring Date of Study:: 03/13/25 Indications Indications: FH Coronary Calcium Scoring: High-resolution Computed Tomographic imaging of the chest was performed on [03/13/25 ], with particular attention paid to the coronary arteries. Images from the examination were analyzed for the presence and extent of coronary artery calcification , using coronary calcium quantification software. The patient tolerated the procedure well and there were no complications. The results of the coronary calcification analysis are provided below. Findings Coronary Artery Left Main (LM): 2.38 Left Anterior Descending (LAD): 7.15 Left Circumflex (LCX): 1.19 Right Coronary Artery (RCA): 99.3 Total Agatston Score: 110.02 Percentile Rankin Calcium Scoring Interpretation: Different methods to categorize the overall amount of coronary plaque. Overall amount CAC SIS Visual of coronary plaque P1 Mild -100 <2 1-2 vessels with mild amount of plaque P2 Moderate 101-300 3-4 1-2 vessels with moderate amount, 3 vessels with mild amount of plaque P3 Severe 301-999 5-7 3 vessels with moderate amount, 1 vessel with severe amount of plaque P4 Extensive >1000 >8 2-3 vessels with severe amount of plaque Calcium Score: Moderate: 1-2 vessels w/moderate amt, 3 vessels w/mild amt of plaque Conclusion: Moderate single-vessel plaque and mild plaque in other vessels.
== END | disposition home or self-care (01) ==
LOC: CT 14:47
PROVIDERS: PCP Internal Medicine; Referring Provider Internal Medicine; Visit Provider Internal Medicine
DX: I25.10 Atherosclerotic heart disease of native coronary artery without angina pectoris (principal); K44.9 Diaphragmatic hernia without obstruction or gangrene; Z82.49 Family history of ischemic heart disease and other diseases of the circulatory system
CPT/HCPCS: 75571; 76380

== ENCOUNTER → 2025-04-27 | Outpatient (CLI) | payer OTHER, SELFPAY ==
--- OUTSIDE RECORDS SUMMARY | 2025-04-27 20:38 | XMS RPT_ITS | CCD ---
Author Organization [facility]iniSyn[facility] Care Team Providers Care Paper Reel Operator Name Role Phone Jazmin Mann Unavailable Gravius, Celsa Unavailable Unavailable Anoop Medina Unavailable Unavailable Anoop White Unavailable Unavailable Hammad, Winifred Unavailable Unavailable Johnathan DO Jazmin Unavailable Hammad DEVIL DOG, Winifred Unavailable Unavailable Christopher DEVIL DOG, Anoop Unavailable Unavailable Jose Levin MD Unavailable Unavailable Unavailable Gibson ELECTRIC LOCOMOTIVE FIRER/FIREMAN, Celsa Unavailable Unavailable Rufus Garcia MD Unavailable Johnathan DOPattieJazmin Unavailable Hampton ELECTRIC LOCOMOTIVE FIRER/FIREMAN, Kayela Unavailable Unavailable Jael DEVIL DOG, Padmini Unavailable Unavailable Dr. Kishan Weldon Unavailable [phone] Jazmin Mann DO Attending Unavailable Jazmin Mann DO Consulting Unavailable Chika DEVIL DOG, Bowen Unavailable Unavailable Dr. Jazmin Mann DO Primary Care Provider Dr. Jazmin Mann DO Attending Provider Dr. Jazmin Mann DO Referring Provider [phone] Dr. Jazmin Mann DO Other Provider Los SONI, Dr. Davidson Attending Provider Jazmin Mann Primary Care Unavailable Jazmin Mann Referring Unavailable Marjorie Rivero Attending Unavailable JohnathanJazmin Referring Unavailable JohnathanJazmin Consulting Unavailable Stuart Madison Attending Unavailable Jazmin Mann Primary Care Unavailable Jazmin Mann Referring Unavailable Jazmin Mann Attending Unavailable Jazmin Mann Primary Care Unavailable JohnathanJazmin Referring Unavailable JohnathanJazmin Attending Unavailable Jazmin Mann Primary Care Unavailable Medications Current Medications Medication Drug Class(es) Dates Sig (Normalized) Sig (Original) lansoprazole 30 mg delayed release oral capsule (20 sources) Proton Pump Inhibitor Start: 12-15-2022 take 1 capsule by mouth once daily Lansoprazole 30 mg Capsule,Delayed Release(Dr/Ec) Active 30 mg PO DAILY December 23, 2022 12:00am Start: 06-09-2022 take 1 capsule by mo uth once daily Lansoprazole 30 MG Oral Capsule Delayed Release 1 (one) Capsule qd for 30 days Quantity: 30 {Capsule} Refills: 5 Ordered: 09-Jun-2022 Jazmin Mann DO, DO, Kathleen Start : 09-Jun-2022 Active Start: 02-09-2022 take 1 capsule by mo uth once daily Lansoprazole 30 MG Oral Capsule Delayed Release 1 (one) Capsule qd for 30 days Quantity: 30 {Capsule} Refills: 5 Ordered: 09-Feb-2022 Jazmin Mann DO, DO, Kathleen Start : 09-Feb-2022 Active Start: 01-21-2022 take 1 capsule by mo uth once daily Lansoprazole 30 MG Oral Capsule Delayed Release 1 (one) Capsule qd for 30 days Quantity: 30 {Capsule} Refills: 5 Ordered: 21-Jan-2022 Padmini Elder LPN Start : 21-Jan-2022 Active Start: 12-08-2021 take 1 capsule by mo uth once daily Lansoprazole 30 MG Oral Capsule Delayed Release 1 (one) Capsule qd for 0 days Quantity: 30 {Capsule} Refills: 0 Ordered: 08-Dec-2021 Jazmin Mann DO, DO, Kathleen Start : 08-Dec-2021 Active Start: 12-05-2021 take 1 capsule by mo uth once daily Lansoprazole 30 MG Oral Capsule Delayed Release 1 (one) Capsule qd for 0 days Quantity: 30 {Capsule} Refills: 0 Ordered: 05-Dec-2021 Jazmin Mann DO, DO, Kathleen Start : 05-Dec-2021 Active Comments: pt needs appt Start: 08-06-2021 take 1 capsule by mo uth once daily Lansoprazole 30 MG Oral Capsule Delayed Release 1 (one) Capsule qd for 0 days Quantity: 30 {Capsule} Refills: 0 Ordered: 06-Aug-2021 Jazmin Mann DO, DO, Kathleen Start : 06-Aug-2021 Active Start: 07-14-2021 take 1 capsule by mo [facility] once daily Lansoprazole 30 MG Oral Capsule Delayed Release 1 (one) Capsule qd for 0 days Quantity: 30 {Capsule} Refills: 3 Ordered: 14-Jul-2021 Arminda Murillo CNP Start : 14-Jul-2021 Active Comment on above: pt needs appt lisinopril 20 mg oral tablet (20 sources) Angiotensin Converting Enzyme Inhibitor Start: 02-09-2022 take 1 tablet by mouth twice daily Lisinopril 20 mg Tablet Active 20 mg PO TWICE A DAY December 23, 2022 12:00am Start: 01-21-2022 take 1 tablet by krysta th twice daily Lisinopril 20 MG Oral Tablet 1 (one) Tablet bid for 30 days Quantity: 60 {Tablet} Refills: 5 Ordered: 21-Jan-2022 Padmini Elder LPN Start : 21-Jan-2022 Active Start: 12-23-2021 take 1 tablet by krysta th twice daily Lisinopril 20 MG Oral Tablet 1 (one) Tablet bid for 0 days Quantity: 60 {Tablet} Refills: 0 Ordered: 23-Dec-2021 Jazmin Mann DO, DO, Kathleen Start : 23-Dec-2021 Active Start: 06-12-2021 take 1 tablet by krysta th twice daily Lisinopril 20 MG Oral Tablet 1 (one) Tablet bid for 0 days Quantity: 60 {Tablet} Refills: 3 Ordered: 12-Jun-2021 Jazmin Mann DO, DO, Kathleen Start : 12-Jun-2021 Active Start: 08-08-2020 take 1 tablet by krysta th twice daily Lisinopril 20 MG Oral Tablet 1 (one) Tablet bid for 0 days Quantity: 60 {Tablet} Refills: 3 Ordered: 30-Dec-2020 Jazmin Mann DO, DO, Kathleen Start : 30-Dec-2020 Active Start: 05-03-2020 take 1 tablet by krysta th twice daily Lisinopril 20 MG Oral Tablet 1 (one) Tablet bid for 0 days Quantity: 60 {Tablet} Refills: 2 Ordered: 03-May-2020 Celsa Arreaga CMA Start : 03-May-2020 Active Completed/Discontinued Medications Medication Drug Class(es) Dates Sig [...] HCl 0.1 % Nasal Solution 1 (one) Ashton each nostril daily for 0 days Quantity: 1 {Ashton} Refills: 2 Ordered: 21-Jan-2022 Padmini Elder LPN Start : 03-Mar-2021 Active azithromycin 250 mg oral tablet (7 sources) Macrolide Antimicrobial Start: 08-06-2022 take 1 tablet by mouth once daily Zithromax Z-Jeremi 250 mg oral tablet tad tablet qd for 0 days Quantity: 1 {Unspecified} Refills: 0 Ordered: 06-Aug-2022 Jazmin Mann DO, DO, Kathleen Start : 06-Aug-2022 Active Comments: dispense one package Comment on above: dispense one package 120 actuat budesonide 0.16 mg/actuat / formoterol fumarate 0.0045 mg/actuat metered dose inhaler (20 sources) Corticosteroid, beta2-Adrenergic Agonist Start: 03-31-2023 take 1 puff(s) by inhalation twice daily Symbicort 160-4.5 mcg/actuation inhalation HFA Aerosol with Adapter 1 (one) Puff bid for 0 days Quantity: 1 {Each} Refills: 0 Ordered: 31-Mar-2023 Jazmin Mann DO, DO, Kathleen Start : 31-Mar-2023 Active Start: 04-14-2022 take 1 puff(s) by in halation twice daily Symbicort 160-4.5 MCG/ACT Inhalation Aerosol 1 (one) Puff bid for 0 days Quantity: 1 {Inhalation} Refills: 2 Ordered: 14-Apr-2022 Jazmin Mann DO, DO, Kathleen Start : 14-Apr-2022 Active Start: 04-14-2022 take 1 puff(s) by in halation twice daily Symbicort 160-4.5 MCG/ACT Inhalation Aerosol 1 (one) Puff bid for 0 days Quantity: 1 {Inhalation} Refills: 2 Ordered: 14-Apr-2022 Jazmin Mann DO, DO, Kathleen Start : 14-Apr-2022 Active Start: 12-30-2020 take 1 puff(s) by in halation twice daily Symbicort 160-4.5 MCG/ACT Inhalation Aerosol 1 (one) Puff bid for 0 days Quantity: 1 {Inhalation} Refills: 2 Ordered: 30-Dec-2020 Celsa Arreaga CMA Start : 30-Dec-2020 Active cetirizine hydrochloride 10 mg oral tablet (20 sources) Histamine-1 Receptor Antagonist Start: 05-03-2020 End: 03-03-2021 take 1 tablet by mouth once daily ZyrTEC Allergy 10 MG Oral Tablet 1 (one) Tablet qd for 0 days Quantity: 30 {Tablet} Refills: 0 Ordered: 03-Mar-2021 Gibson FRAZIER Celsa Start : 03-May-2020 End : 03-Mar-2021 Inactive fluticasone propionate 0.05 mg/actuat metered dose nasal spray (20 sources) Corticosteroid Start: 03-03-2021 End: 03-03-2021 take 1 spray(s) nasal route once daily Fluticasone Propionate 50 MCG/ACT Nasal Suspension 1 (one) Ashton each nostril daily for 0 days Quantity: 1 {Box} Refills: 3 Ordered: 03-Mar-2021 Jazmin Mann DO, DO, Kathleen Start : 03-Mar-2021 End : 03-Mar-2021 Discontinued Start: 05-03-2020 take 1 spray(s) nasa l route once daily Fluticasone Propionate 50 MCG/ACT Nasal Suspension 1 (one) Ashton each nostril daily for 0 days Quantity: 1 {Box} Refills: 3 Ordered: 03-May-2020 Celsa Arreaga CMA Start : 03-May-2020 Active norethindrone acetate 5 mg oral tablet (20 sources) Start: 01-31-2020 End: 03-05-2020 take 1 tablet by mouth three times daily, then take 1 tablet by mouth twice daily Norethindrone Acetate (Aygestin) 5 mg tablet Discontinued 5 mg PO .COMPLEX 45 0 February 24, 2020 8:04am March 05, 2020 9:12am 5 mg PO tid until bleeding stops X 24 hr then bid to finish Rx take 1 mg by mouth once daily No rethindrone Acetate 5 MG Oral Tablet daily (5 MG) Inactive Comments: rx by prosthetic aides teacher Comment on above: rx by prosthetic aides teacher predniSONE 10 mg oral tablet (20 sources) Start: 08-09-19 End: 12-31-19 21 predniSONE 10 MG Oral Tablet 1 (one) Tablet bid for 3days then one tab qd for 3days then stop for 0 days Quantity: 9 {Tablet} Refills: 0 Ordered: 30-Dec-2020 Winifred Cueva LPN Start : 09-Aug-2020 End : 30-Dec-2020 Discontinued 24 hr venlafaxine 75 mg extended release oral capsule (3 sources) Serotonin and Norepinephrine Reuptake Inhibitor Start: 01-03-20 End: 12-21-19 25 take 1 capsule by mouth once daily Venlafaxine (Effexor Xr) 75 mg capsule,extended release 24hr Discontinued 75 mg PO DAILY 30 5 December 19, 2024 11:15am December 20, 2024 7:48am Problems Active Problems Problem Classification Problem Date Documented Date Episodic/Chronic Administrative/social admission (20 sources) Patient encounter status; Translations: [Nutritional counseling] 08-09-2020 Episodic Allergic reactions (20 sources) Allergic condition; Translations: [Allergies] 12-30-2020 Episodic Coronary atherosclerosis and other heart disease (1 source) Atherosclerotic heart disease of [place] coronary artery without angina pectoris; Translations: [Atherosclerotic heart disease of [place] coronary artery without angina pectoris] Onset: 04-09-2025 Chronic Disorders of lipid metabolism (20 sources) Hyperlipidemia; Translations: [Hyperlipidemia] 03-03-2021 Chronic Comment on above: will work on Wir3sy le chg /wt loss Esophageal disorders (20 sources) Gastroesophageal reflux disease; Translations: [GERD (gastroesophageal reflux disease)] 03-03-2021 Chronic Essential hypertension (20 sources) Hypertensive disorder; Translations: [HTN (hypertension)] 05-03-2020 Chronic Immunizations and screening for infectious disease (20 sources) Need for prophylactic vaccination and inoculation against influenza; Translations: [Needs influenza immunization] 08-09-2020 Episodic Menstrual disorders (5 sources) Menometrorrhagia; Translations: [Excessive and frequent menstruation with irregular cycle] 03-12-2020 Chronic Comment on above: d and c hysterosocpy kate ablation. 11 cm uterus. leo Mood disorders (1 source) Depressive disorder; Translations: [Depression] 01-03-2024 Chronic Comment on above: effexor ordered, rec ommend counseling Nonspecific chest pain (20 sources) Chest pain; Translations: [Chest pain] Resolved: 01-21-2022 08-09-2020 Episodic Other circulatory disease (20 sources) Elevated blood pressure; Translations: [Elevated blood pressure reading] Resolved: 08-06-2022 02-09-2020 Episodic Other circulatory disease (20 sources) Abnormal chest sounds; Translations: [Abnormal lung sounds] Resolved: 03-03-2021 12-30-2020 Episodic Other lower respiratory disease (20 sources) Cough; Translations: [Cough] Resolved: 12-05-2021 08-09-2020 Episodic Other nutritional; endocrine; and metabolic disorders (20 sources) Body mass index 30+ - obesity; Translations: [BMI 37.0-37.9, adult] Resolved: 08-06-2022 01-19-2020 Chronic Other nutritional; endocrine; and metabolic disorders (20 sources) Weight gain; Translations: [Weight gain] 12-30-2020 Episodic Other upper respiratory disease (20 sources) Allergic rhinitis; Translations: [Allergic rhinitis] 05-03-2020 Chronic Other upper respiratory disease (20 sources) Non-allergic rhinitis; Translations: [Nonallergic rhinitis] 03-03-2021 Chronic Other upper respiratory disease (20 sources) Congestion of nasal sinus; Translations: [Sinus congestion] Resolved: 01-21-2022 03-03-2021 Episodic Other upper respiratory disease (14 sources) Nasal congestion; Translations: [Nasal congestion] 08-06-2022 Episodic Comment on above: recommend nasonex Other upper respiratory disease (14 sources) Polyp of nasal cavity and/or nasal sinus; Translations: [Nasal polyps] 08-06-2022 Episodic Comment on above: prob contrib to recu rring congestion Other upper respiratory infections (14 sources) Sinusitis; Translations: [Sinusitis] 08-06-2022 Chronic Residual codes; unclassified (20 sources) FH: Cardiovascular disease; Translations: [Family history of cardiovascular disease] 01-19-2020 Episodic Residual codes; unclassified (6 sources) Needs influenza immunization; Translations: [Need for prophylactic vaccination and inoculation against influenza (Renamed from Need for immunization against influenza)] 05-03-2020 Episodic Residual codes; unclassified (20 sources) Non-smoker; Translations: [Non-smoker] 12-30-2020 Episodic Residual codes; unclassified (1 source) Family history of ischemic heart disease and other diseases of the circulatory system; Translations: [Family history of ischemic heart disease and other diseases of the circulatory system] Onset: 04-09-2025 Episodic Unclassified (20 sources) Non-smoker; Translations: [Non-smoker] 01-19-2020 Unclassified (20 sources) Unclassified (20 sources) BMI 38.0-38.9,adult Unclassified (20 sources) Family history of cardiovascular disease Unclassified (20 sources) Elevated high sensitivity C-reactive protein Unclassified (20 sources) Elevated blood pressure reading Unclassified (20 sources) Nutritional counseling Unclassified (20 sources) BMI 37.0-37.9, adult Unclassified (20 sources) BMI 39.0-39.9,adult Unclassified (16 sources) Abnormal lung sounds Unclassified (16 sources) Weight gain Past or Other Problems Problem Classification Problem Date Documented Da te Episodic/Chronic Other screening for suspected conditions (not mental disorders or infectious disease) (20 sources) Elevated C-reactive protein; Translations: [Elevated high sensitivity C-reactive protein] Onset: 08-17-2024 08-09-2020 Episodic Comment on above: pt going to go home and think about ca++ scrore test Other screening for suspected conditions (not mental disorders or infectious disease) (7 sources) Elevated C-reactive protein; Translations: [Elevated high sensitivity C-reactive protein] 02-09-2020 Comment on above: pt going to go home and think about ca++ scrore test Unclassified (20 sources) Deliveries (Parity); Translations: [Deliveries (Parity)] 01-19-2020 Comment on above: 2. one child c secti on one child vaginal Unclassified (20 sources) Patient encounter status; Translations: [Encntr for general adult medical exam w/o abnormal findings] 01-19-2020 Unclassified (13 sources) Encounter for screening mammogram for breast cancer (Renamed from Encounter for screening mammogram for malignant neoplasm of breast) Unclassified (10 sources) Nonallergic rhinitis Unclassified (2 sources) Colon cancer screening (Renamed from Encounter for screening for malignant neoplasm of colon) Results Test Name Value Interpretation Reference Range Facility Coronary Angiography CTon Coronary Angiography CT [facility] Imaging Services [address] [place] [address] 03/13/25 1525 MR#: [id number] Acct: [id number] Name: LORETTA LEMUS NOVEMBER Rep #: [id number] : 1970 54 From: Stuart Madison MD PCP: Dr. Jazmin Mann, DO Status:REG CLI Y Location: CT Calcium Scoring Date of Study:: 03/13/25 Indications Indications: FH Coronary Calcium Scoring: High-resolution Computed Tomographic imaging of the chest was performed on [03/13/25 ], with particular attention paid to the coronary arteries. Images from the examination were analyzed for the presence and extent of coronary artery calcification , using coronary calcium quantification software. The patient tolerated the procedure well and there were no complications. The results of the coronary calcification analysis are provided below. Findings Coronary Artery Left Main (LM): 2.38 Left Anterior Descending (LAD): 7.15 Left Circumflex (LCX): 1.19 Right Coronary Artery (RCA): 99.3 Total Agatston Score: 110.02 Percentile Rankin Calcium Scoring Interpretation: Different methods to categorize the overall amount of coronary plaque. Overall amount CAC SIS Visual of coronary plaque P1 Mild -100 <2 1-2 vessels with mild amount of plaque P2 Moderate 101-300 3-4 1-2 vessels with moderate amount, 3 vessels with mild amount of plaque P3 Severe 301-999 5-7 3 vessels with moderate amount, 1 vessel with severe amount of plaque P4 Extensive >1000 >8 2-3 vessels with severe amount of plaque Calcium Score: Moderate: 1-2 vessels w/moderate amt, 3 vessels w/mild amt of plaque Conclusion: Moderate single-vessel plaque and mild plaque in other vessels. 03/13/25 1528 Date Stuart Madison MD Cosigner Signature (if applicable): Date CC: Dr. Stuart Madison MD; Dr. Jazmin Mann DO Signed Normal [facility] Limited Chest CT Cardiac Onl yon 03-13-[address] Cardiac Only [facility] Imaging Services [address] [place] [id number] Cardiac Only MR#: [id number] Acct: [id number] Name: LORETTA LEMUS NOVEMBER Rep #: [id number] : 1970 F 54 From: Rodger house MD PCP: Dr. Jazmin Mann DO Status: [facility] Study: Limited Chest CT Cardiac Only Date of Exam: Exam# [id number] Ordering Dr: Jazmin Mann DO PROCEDURE: LIMITED CHEST CT CARDIAC ONLY 03/13/2025 REASON FOR EXAM: FAMILY HX OF CARDIOVASCULAR DZ Hypertension TECHNIQUE: LIMITED CHEST CT CARDIAC ONLY CONTRAST: None One or more dose reduction techniques were used (e.g., Automated exposure control, adjustment of the mA and/or kV according to patient size, use of iterative reconstruction technique). RADIATION DOSE SUMMARY: CTDlvol: 12.19 mGy DLP: 170.66 mGycm COMPARISON: None FINDINGS: Coronary artery calcification. The heart is not enlarged. Small to moderate-sized hiatal hernia. The lungs are clear. CT/Limited Chest CT Cardiac Only IMPRESSION: Coronary artery calcification. Reading Location: [id number] CC: Dr. Jazmin Mann DO Radio Commentator: Signed Normal [facility] SCRN MAMM (CAD)W/LUPE BILATo n 07-24-2024 SCRN MAMM (CAD)W/LUPE BILAT [facility] Imaging Services [address] [place] [address] SCRN MAMM (CAD)W/LUPE BILAT MR#: [id number] Acct: [id number] Name: LORETTA LEMUS NOVEMBER Rep #: [id number] : 1970 F 53 From: Abhishek Pruitt MD PCP: Dr. Jazmin Mann DO Status: REG CLI Study: SCRN MAMM (CAD)W/LUPE BILAT Date of Exam: 06/27 Exam# [id number] Ordering Dr: Marjorie Rivero [id number] MAMMOGRAPHY - BILATERAL SCREENING 3-D TOMOSYNTHESIS REASON FOR EXAM: Female, 53 years old. screening mammogram PERTINENT HISTORY: No significant family history. TECHNIQUE: 2-D mammograms and 3-D Tomosynthesis of the breast (s) were performed. CAD was performed. COMPARISON: 07/23/2023 FINDINGS: The breast composition is composed of scattered fibroglandular density. Scattered benign calcifications are seen. No dense spiculated masses or suspicious microcalcifications are identified. No architectural distortion is identified. There is no skin thickening or retraction. There has been no significant change since the prior study. BI/SCRN MAMM (CAD)W/LUPE BILAT IMPRESSION: No mammographic signs of malignancy. Routine yearly mammograms recommended. ASSESSMENT CATEGORY: BIRADS Category 1: Negative. A letter regarding these results will be sent to the patient by the facility within 30 days. FOLLOW UP RECOMMENDATION: Yearly follow up mammogram recommended. (A) Approximately 10% of breast cancers are not detected by mammography. A normal mammogram should not delay biopsy of a clinically suspicious abnormality. Electronically Signed: Abhishek Pruitt MD at 20:42 EST , CC: Dr. Jazmin Mann DO; Dr. Marjorie Rivero MD Radio Commentator: Signed Normal [facility] Basophil percentageOrdered B y: Dr. Garcia on 12-24-2022 Chloride [Moles/Vol] 108 mmol/L 98-107 [facility] Glucose [Mass/Vol] 100 mg/dL 74-106 [facility] Comment on above: Fasting Glucose resu lt from 100 to 125 mg/dL suggests IMPAIRED HOMEOSTASIS per A.D.A. criteria. Potassium [Moles/Vol] 3.9 mmol/L 3.5-5.[address] [facility] Sodium [Moles/Vol] 139 mmol/L 136-145 [facility] WBC (Bld) [#/Vol] 9.8 10*3/uL 4.4-11.0 [facility] Blood erythrocytes count (nu mber/volume)Ordered By: Dr. Garcia on 12-24-2022 RBC (Bld) [#/Vol] 4.82 10*6/uL 4.2-5.4 [facility] Blood hemoglobin measurement (mass/volume)Ordered By: Dr. Garcia on 12-24-2022 Hemoglobin (Bld) [Mass/Vol] 13.7 g/dL 12.0-15.0 [facility] Blood platelet mean volumeOr dered By: Dr. Garcia on 12-24-2022 Platelet mean volume (Bld) [Entitic vol] 9.4 fL 6.2-12.0 [facility] Determination of erythrocyte mean corpuscular volume (MCV)Ordered By: Dr. Garcia on 12-24-2022 MCV (RBC) [Entitic vol] 84.0 fL 81-99 [facility] Hematocrit Auto (Bld) [Volum e fraction]Ordered By: Dr. Garcia on 12-24-2022 Hematocrit (Bld) [Volume fraction] 40.5 % 37-47 [facility] Laboratory - Chemistry and C hemistry - challengeOrdered By: Dr. Garcia on 12-24-2022 CO2 [Moles/Vol] 23.0 mmol/L 21.0-32.0 [facility] Urea nitrogen/Creatinine [Mass ratio] 28.2 mg/mg 10-20 [facility] Laboratory - Hematology and Cell countsOrdered By: Dr. Garcia on 12-24-2022 Erythrocyte distribution width (RBC) [Entitic vol] 38.5 fL 35.1-43.9 [facility] Erythrocyte distribution width (RBC) [Ratio] 12.8 % 11.6-14.6 [facility] MCH (RBC) [Entitic mass] 28.4 pg 27.0-32.0 [facility] MCHC Auto (RBC) [Mass/Vol]Or dered By: Dr. Garcia on 12-24-2022 MCHC (RBC) [Mass/Vol] 33.8 g/dL 32-[address] [facility] No Panel InformationOrdered By: Dr. Garcia on 12-24-2022 Estimated GFR (MDRD) Amer 112 mL/min >60 [facility] Comment on above: GFR Calc Estimated GFR (MDRD) Non-Af Amer 92 mL/min >60 [facility] Comment on above: Non- GFR Calc Platelets bldOrdered By: Dr. Garcia on 12-24-2022 Platelets (Bld) [#/Vol] 315 10*3/uL 150-450 [facility] Serum or plasma calcium john urement (mass/volume)Ordered By: Dr. Garcia on 12-24-2022 Calcium [Mass/Vol] 9.1 mg/dL 8.5-10.1 [facility] Serum or plasma creatinine m easurement (mass/volume)Ordered By: Dr. Garcia on 12-24-2022 Creatinine [Mass/Vol] 0.71 mg/dL 0.55-1.[address] [facility] Comment on above: The validity of the calculated GFR & GFRAA in patients over 70 years has not been determined. Clinical correlation is essential. Serum or plasma urea nitroge n measurement (mass/volume)Ordered By: Dr. Garcia on 12-24-2022 Urea nitrogen [Mass/Vol] 20 mg/dL 7-18 [facility] Thin prep Papanicolaou smear with manual screeningOrdered By: Dr. Garcia on 12-24-2022 Thin prep Papanicolaou smear with manual screening 8 5-15 [facility] CBC W/AUTO DIFF WBC ([id number])O rdered By: Strap Sewer on 01-21-2022 Basophils (Bld) [#/Vol] 0.1 10*3/uL Normal 0.0-0.2 [facility] Work Phone: Comment on above: PATIENT WAS FASTINGP ERFORMED BY: ILENE [facility] [id number] [place] [id number] Basophils/100 WBC (Bld) 1 % Normal [facility]; [facility] Work Phone: Comment on above: PATIENT WAS FASTINGP ERFORMED BY: ILENE [facility] [id number] [place] [id number] Eosinophils (Bld) [#/Vol] 0.3 10*3/uL Normal 0.0-0.4 [facility]; [facility] Work Phone: Comment on above: PATIENT WAS FASTINGP ERFORMED BY: ILENE [facility] [id number]Dublin [place] [id number] Eosinophils/100 WBC (Bld) 5 % Normal [facility]; [facility] Work Phone: Comment on above: PATIENT WAS FASTINGP ERFORMED BY: ILENE [facility] [id number]Davis [facility] [place] [id number] Erythrocyte distribution width (RBC) [Ratio] 12.8 % Normal 11.7-15.4 [facility]; [facility] Work Phone: Comment on above: PATIENT WAS FASTINGP ERFORMED BY: CB [facility] Xoxfkf3050 [address] RoadDavis Regional Medical Centerin [place] [id number] Hematocrit (Bld) [Volume fraction] 41.7 % Normal 34.0-46.6 [facility]; [facility] Work Phone: Comment on above: PATIENT WAS FASTINGP ERFORMED BY: CB [facility] Dwlwhl6429 [address] Roadblin [place] [id number] Hemoglobin (Bld) [Mass/Vol] 14.0 g/dL Normal 11.1-15.9 [facility]; [facility] Work Phone: Comment on above: PATIENT WAS FASTINGP ERFORMED BY: [facility] Neyipa[address] [facility] [place] [id number] Immature granulocytes (Bld) [#/Vol] 0.0 10*3/uL Normal 0.0-0.1 [facility]; [facility] Work Phone: Comment on above: PATIENT WAS FASTINGP ERFORMED BY: [facility] [facility] [place] [id number] Immature granulocytes/100 WBC (Bld) 0 % Normal [facility]; [facility] Work Phone: Comment on above: PATIENT WAS FASTINGP ERFORMED BY: [place] [id number] [facility] [id number] Lymphocytes (Bld) [#/Vol] 1.6 10*3/uL Normal 0.7-3.1 [facility]; [facility] Work Phone: Comment on above: PATIENT WAS FASTINGP ERFORMED BY: [place] [id number] [facility] [id number] Lymphocytes/100 WBC (Bld) 25 % Normal [facility]; [facility] Work Phone: Comment on above: PATIENT WAS FASTINGP ERFORMED BY: [facility]6370 [facility] [id number] MCH (RBC) [Entitic mass] 29.5 pg Normal 26.6-33.0 [facility]; [facility] Work Phone: Comment on above: PATIENT WAS FASTINGP ERFORMED BY: [facility] [facility] [id number] MCHC (RBC) [Mass/Vol] 33.6 g/dL Normal 31.5-35.7 [facility] prehensive Internal Medicine; [facility] Work Phone: Comment on above: PATIENT WAS FASTINGP ERFORMED BY: [facility] [facility] [id number] MCV (RBC) [Entitic vol] 88 fL Normal 79-97 [facility]; [facility] Work Phone: Comment on above: PATIENT WAS FASTINGP ERFORMED BY: CB [facility] Cxzlbv9694 [address] RoadDublin [place] [id number] Monocytes (Bld) [#/Vol] 0.4 10*3/uL Normal 0.1-0.9 [facility]; [facility] Work Phone: Comment on above: PATIENT WAS FASTINGP ERFORMED BY: CB [facility] Jvrwaw5394 [address] RoadDublin [place] [id number] Monocytes/100 WBC (Bld) 7 % Normal [facility]; [facility] Work Phone: Comment on above: PATIENT WAS FASTINGP ERFORMED BY: CB [facility] Nezcys9816 [address] RoadDublin [place] [id number] Neutrophils (Bld) [#/Vol] 3.8 10*3/uL Normal 1.4-7.0 [facility]; [facility] Work Phone: Comment on above: PATIENT WAS FASTINGP ERFORMED BY: CB [facility] Ejaasz9919 [address] RoadDublin [place] [id number] Neutrophils/100 WBC (Bld) 62 % Normal [facility]; [facility] Work Phone: Comment on above: PATIENT WAS FASTINGP ERFORMED BY: CB [facility] Cxdmxy8456 [address] RoadDublin [place] [id number] Platelets (Bld) [#/Vol] 286 10*3/uL Normal 150-450 [facility]; [facility] Work Phone: Comment on above: PATIENT WAS FASTINGP ERFORMED BY: CB [facility] Yucxod1307 [address] RoadDublin [place] [id number] RBC (Bld) [#/Vol] 4.75 10*6/uL Normal 3.77-5.28 [facility] Internal Medicine; [facility] Work Phone: Comment on above: PATIENT WAS FASTINGP ERFORMED BY: CB [facility] Cqmcir1392 [address] RoadDublin [place] [id number] WBC (Bld) [#/Vol] 6.2 10*3/uL Normal 3.4-10.8 [facility] Internal Medicine; [facility] Work Phone: Comment on above: PATIENT WAS FASTINGP ERFORMED BY: CB [facility] Shstph7175 [address] RoadDublin [place] [id number] LIPID PANEL (98950)Ordered B y: Strap Sewer on 01-21-2022 Cholesterol [Mass/Vol] 222 mg/dL Abnormal 100-[address]erens[facility]; [facility] Work Phone: Comment on above: PATIENT WAS FASTINGP ERFORMED BY: CB [facility] Dpfzop1067 [address] RoadDublin [place] [id number] Cholesterol in HDL [Mass/Vol] 47 mg/dL Normal [facility]; [facility] Work Phone: Comment on above: PATIENT WAS FASTINGP ERFORMED BY: ILENE [facility] Hmomos6364 [address] RoadDublin [place] [id number] Triglyceride [Mass/Vol] 117 mg/dL Normal 0-149 [facility]; [facility] Work Phone: Comment on above: PATIENT WAS FASTINGP ERFORMED BY: CB [facility] Fpbzep2603 [address] RoadDublin [place] [id number] LIPID PANEL (27656) 21 mg/dL Normal 5-40 [facility] SSD[facility]; [facility] Work Phone: Comment on above: PATIENT WAS FASTINGP ERFORMED BY: CB [facility] Yrnxis8314 [address] RoadDublin [place] [id number] LIPID PANEL (84524) 154 mg/dL Abnormal 0-99 [facility]; [facility] Work Phone: Comment on above: PATIENT WAS FASTINGP ERFORMED BY: CB [facility] Vuqpbb0320 [address] RoadDublin [place] [id number] LIPID PANEL (11683) 3.3 {ratio} Abnormal 0.0-3.2 [facility]; [facility] Work Phone: Comment on above: LDL/HDL Ratio Men Wo men 1/2 Avg.Risk 1.0 1.5 Avg.Risk 3.6 3.2 2X Avg.Risk 6.2 5.0 3X Avg.Risk 8.0 6.1 PATIENT WAS FASTINGP ERFORMED BY: ILENE [facility] Ruufkr1902 [address] RoadDublin [place] [id number] METABOLIC PANEL, COMPREHENSI VE (77424)Ordered By: Strap Sewer on 01-21-2022 Albumin [Mass/Vol] 4.0 g/dL Normal 3.8-4.8 [facility] Internal Medicine; [facility] Work Phone: Comment on above: PATIENT WAS FASTINGP ERFORMED BY: ILENE [facility] Etovgf2764 [address] RoadDublin [place] [id number] Albumin/Globulin [Mass ratio] 1.3 {ratio} Normal 1.2-2.2 [facility]; [facility] Work Phone: Comment on above: PATIENT WAS FASTINGP ERFORMED BY: ILENE [facility] Cxyhsh6389 [address] RoadDublin [place] [id number] ALP [Catalytic activity/Vol] 102 U/L Normal 44-121 [facility]; [facility] Work Phone: Comment on above: PATIENT WAS FASTINGP ERFORMED BY: ILENE [facility] Dpehpv0833 [address] RoadDublin [place] [id number] ALT [Catalytic activity/Vol] 12 U/L Normal 0-32 [facility]; [facility] Work Phone: Comment on above: PATIENT WAS FASTINGP ERFORMED BY: ILENE [facility] Tehnfc5104 [address] RoadDublin [place] [id number] AST [Catalytic activity/Vol] 14 U/L Normal 0-40 [facility]; [facility] Work Phone: Comment on above: PATIENT WAS FASTINGP ERFORMED BY: ILENE [facility] Slqers5218 [address] RoadDublin [place] [id number] Bilirubin [Mass/Vol] 0.3 mg/dL Normal 0.0-1.2 [facility] Internal Medicine; [facility] Work Phone: Comment on above: PATIENT WAS FASTINGP ERFORMED BY: CB [facility] Fhetys5483 [address] RoadDublin [place] [id number] Calcium [Mass/Vol] 9.4 mg/dL Normal 8.7-10.2 [facility] Internal Medicine; [facility] Work Phone: Comment on above: PATIENT WAS FASTINGP ERFORMED BY: ILENE [facility] Obsdan7101 [address] RoadDublin [place] [id number] Chloride [Moles/Vol] 104 mmol/L Normal 96-106 [facility] Childrenensive [facility]; [facility] Work Phone: Comment on above: PATIENT WAS FASTINGP ERFORMED BY: [facility] Wflcii1929 [address] RoadDublin [place] [id number] CO2 [Moles/Vol] 22 mmol/L Normal 20-29 [facility] Internal Medicine; [facility] Work Phone: Comment on above: PATIENT WAS FASTINGP ERFORMED BY: [facility] Tfktku4152 [address] RoadDublin [place] [id number] Creatinine [Mass/Vol] 0.73 mg/dL Normal 0.57-1.00 [facility]; [facility] Work Phone: Comment on above: PATIENT WAS FASTINGP ERFORMED BY: [facility] Jfjluj6399 [address] Roadblin [place] [id number] GFR/1.73 sq M.predicted among non-blacks MDRD (S/P/Bld) [Vol rate/Area] 100 mL/min/{1.73_m2} Normal [facility] Internal Medicine; [facility] Work Phone: Comment on above: PATIENT WAS FASTINGP ERFORMED BY: [facility] Gtpmtq2573 [address] RoadDublin [place] [id number] Globulin (S) [Mass/Vol] 3.0 g/dL Normal 1.5-4.5 [facility]; [facility] Work Phone: Comment on above: PATIENT WAS FASTINGP ERFORMED BY: [facility] Qxyisb2737 [address] RoadDublin [place] [id number] Glucose [Mass/Vol] 89 mg/dL Normal 65-99 [facility] Internal Medicine; [facility] Work Phone: Comment on above: PATIENT WAS FASTINGP ERFORMED BY: ILENE [facility] Kxycgb9190 [address] RoadDublin [place] [id number] Potassium [Moles/Vol] 4.3 mmol/L Normal 3.5-5.2 [facility] prehensive Internal Medicine; [facility] Work Phone: Comment on above: PATIENT WAS FASTINGP ERFORMED BY: CB [facility] Tplvss1362 [address] RoadDublin [place] [id number] Protein [Mass/Vol] 7.0 g/dL Normal 6.0-8.5 [facility] Internal Medicine; [facility] Work Phone: Comment on above: PATIENT WAS FASTINGP ERFORMED BY: ILENE [facility] Tscshs2718 [address] RoadDublin [place] [id number] Sodium [Moles/Vol] 139 mmol/L Normal 134-144 [facility] Internal Medicine; [facility] Work Phone: Comment on above: PATIENT WAS FASTINGP ERFORMED BY: ILENE [facility] Pzwtuf4243 [address] RoadDublin [place] [id number] Urea nitrogen [Mass/Vol] 15 mg/dL Normal 6-24 [facility]; [facility] Work Phone: Comment on above: PATIENT WAS FASTINGP ERFORMED BY: ILENE [facility] Gkgggv0352 [address] RoadDublin [place] [id number] Urea nitrogen/Creatinine [Mass ratio] 21 mg/mg Normal 9-23 [facility]; [facility] Work Phone: Comment on above: PATIENT WAS FASTINGP ERFORMED BY: ILENE [facility] Bffwij0865 [address] RoadDublin [place] [id number] MICROALBUMINOrdered By: Syst em Communication Professor on 01-21-2022 Albumin DL <= 20 mg/L (U) [Mass/Vol] mg/dL Normal [facility]; [facility] Work Phone: Comment on above: Verified by repeat analysis PATIENT WAS FASTINGP ERFORMED BY: CB [facility] Ywrdmq9825 [address] RoadDublin [place] [id number] Albumin/Creatinine (U) [Mass ratio] <9 Normal 0-29 [facility]; [facility] Work Phone: Comment on above: Normal: 0 - 29 Moder ately increased: 30 - 300 Severely increased: >300 PATIENT WAS FASTINGP ERFORMED BY: ILENE Labgiuliano Pjrvmj1337 [address] RoadDublin [place] [id number] Creatinine (U) [Mass/Vol] 35.2 mg/dL Normal [facility]; [facility] Work Phone: Comment on above: PATIENT WAS FASTINGP ERFORMED BY: ILENE [facility] Wggoeg1213 [address] RoadDublin [place] [id number] TSH ([id number])Ordered By: [employer] m Communication Professor on 01-21-2022 TSH Qn 1.950 {uIU/mL} Normal 0.450-4.500 Comprehen sive Internal Medicine; [facility] Work Phone: Comment on above: PATIENT WAS FASTINGP ERFORMED BY: ILENE Labsain[facility] Jegbgi5588 [address] RoadDublin [place] [id number] URINALYSIS, W/ MICRO ([id number]) Ordered By: Strap Sewer on 01-21-2022 Appearance (U) Clear Normal Comprehens alan Internal Medicine; [facility] Work Phone: Comment on above: PATIENT WAS FASTINGP ERFORMED BY: ILENE Labpaul PetersonVihurj7788 [address] RoadDublin [place] [id number] Bilirubin Ql (U) Negative Normal Comprehe nsive Internal Medicine; [facility] Work Phone: Comment on above: PATIENT WAS FASTINGP ERFORMED BY: ILENE [facility] Ciaiuq5027 [address] RoadDublin [place] [id number] Color (U) Yellow Normal [facility]; [facility] Work Phone: Comment on above: PATIENT WAS FASTINGP ERFORMED BY: ILENE [facility] Jkoqla4992 [address] RoadDublin [place] [id number] Glucose Ql (U) Negative Normal Comprehens alan Internal Medicine; [facility] Work Phone: Comment on above: PATIENT WAS FASTINGP ERFORMED BY: ILENE Angel Qbjcmg5972 [address] RoadDublin [place] [id number] Hemoglobin Ql (U) Negative Normal Compreh ensive Internal Medicine; [facility] Work Phone: Comment on above: PATIENT WAS FASTINGP ERFORMED BY: ILENE Kenneth Petersonlin6[address] RoadDublin [place] [id number] Ketones Ql (U) Negative Normal Comprehens alan Internal Medicine; [facility] Work Phone: Comment on above: PATIENT WAS FASTINGP ERFORMED BY: ILENE Labgiuliano Gtnmua4915 [address] RoadDublin [place] [id number] Leukocyte esterase Test strip Ql (U) Negative Normal [facility]; [facility] Work Phone: Comment on above: PATIENT WAS FASTINGP ERFORMED BY: ILENE Kenneth Petersonlin6[address] RoadDublin [place] [id number] Microscopic observation LM Nom (Urine sed) MICRON Normal [facility]; [facility] Work Phone: Comment on above: Microscopic follows if indicated. PATIENT WAS FASTINGP ERFORMED BY: ILENE Kenneth Petersonlin6[address] RoadDublin [place] [id number] Microscopic observation LM Nom (Urine sed) See below: Normal [facility]; [facility] Work Phone: Comment on above: Microscopic was alannah cated and was performed. PATIENT WAS FASTINGP ERFORMED BY: ILENE Labgiuliano Meuxsn0345 [address] RoadDublin [place] [id number] Nitrite Ql (U) Negative Normal Comprehens alan Internal Medicine; [facility] Work Phone: Comment on above: PATIENT WAS FASTINGP ERFORMED BY: ILENE [facility] Vpadzj3300 [address] RoadDublin [place] [id number] pH (U) 6.0 [pH] Normal 5.0-7.5 [facility]; [facility] Work Phone: Comment on above: PATIENT WAS FASTINGP ERFORMED BY: ILENE [facility] Iufszm6578 [address] RoadDublin [place] [id number] Protein Ql (U) Negative Normal Comprehens alan Internal Medicine; [facility] Work Phone: Comment on above: PATIENT WAS FASTINGP ERFORMED BY: ILENE Angel Takgxc4164 [facility] [id number] Specific gravity (U) [Rel density] 1.008 1 Normal 1.005-1.030 [facility]; [facility] Work Phone: Comment on above: PATIENT WAS FASTINGP ERFORMED BY: ILENE Monicasain[facility] Nbxvdz2645 [facility] [id number] Urobilinogen (U) [Mass/Vol] 0.2 mg/dL Normal 0.2-1.0 [facility]; [facility] Work Phone: Comment on above: PATIENT WAS FASTINGP ERFORMED BY: ILENE Angel Vuwjwj6406 [facility] [id number] CBC W/AUTO DIFF WBC ([id number])O rdered By: Strap Sewer on 01-03-2021 Basophils (Bld) [#/Vol] 0.1 10*3/uL Normal 0.0-0.2 [facility]; [facility] Work Phone: Comment on above: PATIENT WAS FASTINGP ERFORMED BY: ILENE MonicaGiuliano Bzjlit5652 [facility] [id number] Basophils/100 WBC (Bld) 1 % Normal [facility]; [facility] Work Phone: Comment on above: PATIENT WAS FASTINGP ERFORMED BY: ILENE LabKalk[facility] Center6370 [facility] [id number] Eosinophils (Bld) [#/Vol] 0.3 10*3/uL Normal 0.0-0.4 [facility]; [facility] Work Phone: Comment on above: PATIENT WAS FASTINGP ERFORMED BY: ILENE LabWestern [facility] Bqrsnc4012 [facility] [id number] Eosinophils/100 WBC (Bld) 4 % Normal [facility]; [facility] Work Phone: Comment on above: PATIENT WAS FASTINGP ERFORMED BY: LabKalk[facility] Center6370 [facility] [id number] Erythrocyte distribution width (RBC) [Ratio] 12.4 % Normal 11.7-15.4 [facility]; [facility] Work Phone: Comment on above: PATIENT WAS FASTINGP ERFORMED BY: ILENE Kenneth Reynaga6370 [facility] [id number] Hematocrit (Bld) [Volume fraction] 40.7 % Normal 34.0-46.6 [facility]; [facility] Work Phone: Comment on above: PATIENT WAS FASTINGP ERFORMED BY: ILENE MonicaWestern [facility] Dzjfmz2702 [facility] [id number] Hemoglobin (Bld) [Mass/Vol] 13.7 g/dL Normal 11.1-15.9 [facility]; [facility] Work Phone: Comment on above: PATIENT WAS FASTINGP ERFORMED BY: ILENE MonicaWestern [facility] Ovwmtl7053 [facility] [id number] Immature granulocytes (Bld) [#/Vol] 0.0 10*3/uL Normal 0.0-0.1 [facility]; [facility] Work Phone: Comment on above: PATIENT WAS FASTINGP ERFORMED BY: ILENE Angelsusan PetersonKztpbq9566 [facility] [id number] Immature granulocytes/100 WBC (Bld) 0 % Normal [facility]; [facility] Work Phone: Comment on above: PATIENT WAS FASTINGP ERFORMED BY: ILENE MonicaWestern [facility] Nxncfu1804 [facility] [id number] Lymphocytes (Bld) [#/Vol] 2.2 10*3/uL Normal 0.7-3.1 [facility]; [facility] Work Phone: Comment on above: PATIENT WAS FASTINGP ERFORMED BY: ILENE Angel Yipmku2110 [facility] [id number] Lymphocytes/100 WBC (Bld) 30 % Normal [facility]; [facility] Work Phone: Comment on above: PATIENT WAS FASTINGP ERFORMED BY: ILENE AndersonWestern [facility] Wwodby1011 [address] RoadDublin [place] [id number] MCH (RBC) [Entitic mass] 28.6 pg Normal 26.6-33.0 [facility]; [facility] Work Phone: Comment on above: PATIENT WAS FASTINGP ERFORMED BY: LabWestern [facility] Bjqfqv0964 [address] RoadDublin [place] [id number] MCHC (RBC) [Mass/Vol] 33.7 g/dL Normal 31.5-35.7 [facility]; [facility] Work Phone: Comment on above: PATIENT WAS FASTINGP ERFORMED BY: LabWestern [facility] Wufpwt8757 [address] RoadDublin [place] [id number] MCV (RBC) [Entitic vol] 85 fL Normal 79-97 [facility]; [facility] Work Phone: Comment on above: PATIENT WAS FASTINGP ERFORMED BY: [facility]6[address]bl[address] [place] [id number] Monocytes (Bld) [#/Vol] 0.5 10*3/uL Normal 0.1-0.9 [facility]; [facility] Work Phone: Comment on above: PATIENT WAS FASTINGP ERFORMED BY: MonicaWestern [facility] Visuni8130 [address] RoadDublin [place] [id number] Monocytes/100 WBC (Bld) 7 % Normal [facility]; [facility] Work Phone: Comment on above: PATIENT WAS FASTINGP ERFORMED BY: LabKalkaska [facility] Center6370 [address]Dublin [place] [id number] Neutrophils (Bld) [#/Vol] 4.3 10*3/uL Normal 1.4-7.0 [facility] Internal Medicine; [facility] Work Phone: Comment on above: PATIENT WAS FASTINGP ERFORMED BY: LabWestern [facility] Trguzt7993 [address] RoadDublin [place] [id number] Neutrophils/100 WBC (Bld) 58 % Normal [facility]; [facility] Work Phone: Comment on above: PATIENT WAS FASTINGP ERFORMED BY: ILENE [facility] Uhjppc6302 [address] RoadDublin [place] [id number] Platelets (Bld) [#/Vol] 306 10*3/uL Normal 150-450 [facility]; [facility] Work Phone: Comment on above: PATIENT WAS FASTINGP ERFORMED BY: CB [facility] Evgkha8926 [address] RoadDublin [place] [id number] RBC (Bld) [#/Vol] 4.79 10*6/uL Normal 3.77-5.28 [facility] Internal Medicine; [facility] Work Phone: Comment on above: PATIENT WAS FASTINGP ERFORMED BY: CB [facility] Uaajzb8494 [address] RoadDublin [place] [id number] WBC (Bld) [#/Vol] 7.3 10*3/uL Normal 3.4-10.8 [facility] Internal Medicine; [facility] Work Phone: Comment on above: PATIENT WAS FASTINGP ERFORMED BY: ILENE [facility] Usquzf6129 [address] RoadDublin [place] [id number] LIPID PANEL (15177)Ordered B y: Strap Sewer on 01-03-2021 Cholesterol [Mass/Vol] 218 mg/dL Abnormal 100-199 [facility] Internal Medicine; [facility] Work Phone: Comment on above: PATIENT WAS FASTINGP ERFORMED BY: ILENE [facility] Wxrlwv8770 [address] RoadDublin [place] [id number] Cholesterol in HDL [Mass/Vol] 52 mg/dL Normal [facility]; [facility] Work Phone: Comment on above: PATIENT WAS FASTINGP ERFORMED BY: CB [facility] Boxhel2681 [address] RoadDublin [place] [id number] Triglyceride [Mass/Vol] 96 mg/dL Normal 0-149 [facility]; [facility] Work Phone: Comment on above: PATIENT WAS FASTINGP ERFORMED BY: CB [facility] Wldyjs9026 [address] RoadDublin [place] [id number] LIPID PANEL (12887) 17 mg/dL Normal 5-40 [facility] Internal Medicine; [facility] Work Phone: Comment on above: PATIENT WAS FASTINGP ERFORMED BY: ILENE LabGiulianosusan Xpqvhu[address] [facility] [place] [id number] LIPID PANEL (50445) 149 mg/dL Abnormal 0-99 [facility] Internal Medicine; [facility] Work Phone: Comment on above: PATIENT WAS FASTINGP ERFORMED BY: ILENE LabCosusan PetersonObgxwy[address] [facility] [place] [id number] LIPID PANEL (89455) 2.9 {ratio} Normal 0.0-3.2 [facility] Internal Medicine; [facility] Work Phone: Comment on above: LDL/HDL Ratio Men Wo men 1/2 Avg.Risk 1.0 1.5 Avg.Risk 3.6 3.2 2X Avg.Risk 6.2 5.0 3X Avg.Risk 8.0 6.1 PATIENT WAS FASTINGP ERFORMED BY: ILENE LabPaul PetersonPjevmq8569 [facility] [id number] METABOLIC PANEL, COMPREHENSI VE (64822)Ordered By: Strap Sewer on 01-03-2021 Albumin [Mass/Vol] 4.3 g/dL Normal 3.8-4.8 [facility] Internal Medicine; [facility] Work Phone: Comment on above: PATIENT WAS FASTINGP ERFORMED BY: ILENE LabPaul PetersonNbloms[address] [facility], [place] [id number] Albumin/Globulin [Mass ratio] 1.4 {ratio} Normal 1.2-2.2 [facility] Internal Medicine; [facility] Work Phone: Comment on above: PATIENT WAS FASTINGP ERFORMED BY: ILENE [facility] Bxaaot[address] [facility]bl[facility] [place] [id number] ALP [Catalytic activity/Vol] 98 U/L Normal 48-121 [facility]; [facility] Work Phone: Comment on above: PATIENT WAS FASTINGP ERFORMED BY: ILENE [facility] Mybjjs[address] [facility] Hospitalblin [place] [id number] ALT [Catalytic activity/Vol] 13 U/L Normal 0-32 [facility]; [facility] Work Phone: Comment on above: PATIENT WAS FASTINGP ERFORMED BY: CB [facility] Uhcvjj4273 [address] RoadDublin [place] [id number] AST [Catalytic activity/Vol] 18 U/L Normal 0-40 [facility]; [facility] Work Phone: Comment on above: PATIENT WAS FASTINGP ERFORMED BY: CB [facility] Oxfrgp8883 [address] RoadDublin [place] [id number] Bilirubin [Mass/Vol] 0.4 mg/dL Normal 0.0-1.2 Comp rehensive [facility]; [facility] Work Phone: Comment on above: PATIENT WAS FASTINGP ERFORMED BY: CB [facility] Fuigpj8834 [address] RoadDublin [place] [id number] Calcium [Mass/Vol] 9.4 mg/dL Normal 8.7-10.2 [facility] Internal Medicine; [facility] Work Phone: Comment on above: PATIENT WAS FASTINGP ERFORMED BY: CB [facility] Vpwixm7965 [address] RoadDublin [place] [id number] Chloride [Moles/Vol] 102 mmol/L Normal 96-106 [facility]; [facility] Work Phone: Comment on above: PATIENT WAS FASTINGP ERFORMED BY: CB [facility] Arrqyh1834 [address] RoadDublin [place] [id number] CO2 [Moles/Vol] 24 mmol/L Normal 20-29 [facility] Internal Medicine; [facility] Work Phone: Comment on above: PATIENT WAS FASTINGP ERFORMED BY: CB [facility] Nwghly7757 [address] RoadDublin [place] [id number] Creatinine [Mass/Vol] 0.74 mg/dL Normal 0.57-1.00 [facility]; [facility] Work Phone: Comment on above: PATIENT WAS FASTINGP ERFORMED BY: CB [facility] Xvejxo3174 [address]Dublin [place] [id number] GFR/1.73 sq M.predicted among blacks CKD-EPI (S/P/Bld) [Vol rate/Area] 110 mL/min/1.73 Normal [facility]; [facility] Work Phone: Comment on above: [facility] currently reports eGFR in compliance with the current recommendations of the National Kid[employer]. [facility] will update reporting as new guidelines are published from the NKF-ASN Task force. PATIENT WAS FASTINGP ERFORMED BY: [facility]6[address] [facility] [id number] GFR/1.73 sq M.predicted among non-blacks CKD-EPI (S/P/Bld) [Vol rate/Area] 95 mL/min/1.73 Normal [facility]; [facility] Work Phone: Comment on above: PATIENT WAS FASTINGP ERFORMED BY: [facility]6[address] [facility] [id number] Globulin (S) [Mass/Vol] 3.0 g/dL Normal 1.5-4.5 [facility] Internal Medicine; [facility] Work Phone: Comment on above: PATIENT WAS FASTINGP ERFORMED BY: [facility]6[address] [facility] [id number] Glucose [Mass/Vol] 81 mg/dL Normal 65-99 [facility] Internal Medicine; [facility] Work Phone: Comment on above: PATIENT WAS FASTINGP ERFORMED BY: [facility]6[address] [facility] [id number] Potassium [Moles/Vol] 4.4 mmol/L Normal 3.5-5.2 [facility] prehensive Internal Medicine; [facility] Work Phone: Comment on above: PATIENT WAS FASTINGP ERFORMED BY: [facility]6[address] [facility] [id number] Protein [Mass/Vol] 7.3 g/dL Normal 6.0-8.5 [facility] Internal Medicine; [facility] Work Phone: Comment on above: PATIENT WAS FASTINGP ERFORMED BY: CB [facility] Zumqqd7370 [address] RoadDublin [place] [id number] Sodium [Moles/Vol] 139 mmol/L Normal 134-144 [facility] Internal Medicine; [facility] Work Phone: Comment on above: PATIENT WAS FASTINGP ERFORMED BY: ILENE [facility] Kvtzah2231 [address] RoadDublin [place] [id number] Urea nitrogen [Mass/Vol] 8 mg/dL Normal 6-24 [facility]; [facility] Work Phone: Comment on above: PATIENT WAS FASTINGP ERFORMED BY: CB [facility] Ywswqr4528 [address] RoadDublin [place] [id number] Urea nitrogen/Creatinine [Mass ratio] 11 mg/mg Normal 9-23 [facility]; [facility] Work Phone: Comment on above: PATIENT WAS FASTINGP ERFORMED BY: ILENE [facility] Sbwuwp1435 [address] RoadDublin [place] [id number] MICROALBUMINOrdered By: Pagevamp em Communication Professor on 01-03-2021 Albumin DL <= 20 mg/L (U) [Mass/Vol] mg/dL Normal [facility]; [facility] Work Phone: Comment on above: Verified by repeat analysis PATIENT WAS FASTINGP ERFORMED BY: ILENE [facility] Gsdcfh3485 [address] RoadDublin [place] [id number] Albumin/Creatinine (U) [Mass ratio] <10 Normal 0-29 [facility]; [facility] Work Phone: Comment on above: Normal: 0 - 29 Moder ately increased: 30 - 300 Severely increased: >300 PATIENT WAS FASTINGP ERFORMED BY: CB [facility] Zjojpl2654 [address] RoadDublin [place] [id number] Creatinine (U) [Mass/Vol] 30.7 mg/dL Normal [facility]; [facility] Work Phone: Comment on above: PATIENT WAS FASTINGP ERFORMED BY: ILENE [facility] Sngexl6525 [address] RoadDublin [place] [id number] TSH ([id number])Ordered By: Pagevampe m Communication Professor on 01-03-2021 TSH Qn 2.720 {uIU/mL} Normal 0.450-4.500 Comprehen sive Internal Medicine; [facility] Work Phone: Comment on above: PATIENT WAS FASTINGP ERFORMED BY: ILENE LabGiulianosusan PetersonZqgcam6184 [address]Dublin [place] [id number] URINALYSIS, W/ MICRO ([id number]) Ordered By: Strap Sewer on 01-03-2021 Appearance (U) Clear Normal Comprehens alan Internal Medicine; [facility] Work Phone: Comment on above: PATIENT WAS FASTINGP ERFORMED BY: LIENE LabCosusan PetersonPqrmaq2072 [address] RoadDublin [place] [id number] Bilirubin Ql (U) Negative Normal Comprehe nsive Internal Medicine; [facility] Work Phone: Comment on above: PATIENT WAS FASTINGP ERFORMED BY: ILENE LabPaul PetersonQqhxfr7330 [address] RoadDublin [place] [id number] Color (U) Yellow Normal [facility]; [facility] Work Phone: Comment on above: PATIENT WAS FASTINGP ERFORMED BY: ILENE LabCosusan PetersonGdrzec5871 [address] RoadDublin [place] [id number] Glucose Ql (U) Negative Normal Comprehens alan Internal Medicine; [facility] Work Phone: Comment on above: PATIENT WAS FASTINGP ERFORMED BY: ILENE LabPaul PetersonEudjpy8834 [address] RoadDublin [place] [id number] Hemoglobin Ql (U) Negative Normal Compreh ensive Internal Medicine; [facility] Work Phone: Comment on above: PATIENT WAS FASTINGP ERFORMED BY: ILENE [facility] Nephxg3147 [address] RoadDublin [place] [id number] Ketones Ql (U) Negative Normal Comprehens alan [facility] Medicine; [facility] Work Phone: Comment on above: PATIENT WAS FASTINGP ERFORMED BY: ILENE [facility] Vahcqh5693 [address] RoadDublin [place] [id number] Leukocyte esterase Test strip Ql (U) Negative Normal [facility]; [facility] Work Phone: Comment on above: PATIENT WAS FASTINGP ERFORMED BY: ILENE Kenneth Reynaga[address] [facility] [place] [id number] Microscopic observation LM Nom (Urine sed) MICRON Normal [facility]; [facility] Work Phone: Comment on above: Microscopic follows if indicated. PATIENT WAS FASTINGP ERFORMED BY: ILENE Kenneth Reynaga[address] [facility] [place] [id number] Microscopic observation LM Nom (Urine sed) See below: Normal [facility]; [facility] Work Phone: Comment on above: Microscopic was alannah cated and was performed. PATIENT WAS FASTINGP ERFORMED BY: ILENE Kenneth Reynaga[address] [facility] [place] [id number] Nitrite Ql (U) Negative Normal Comprehens alan Internal Medicine; [facility] Work Phone: Comment on above: PATIENT WAS FASTINGP ERFORMED BY: ILENE Kenneth Reynaga[address] [facility] [id number] pH (U) 6.5 [pH] Normal 5.0-7.5 [facility]; [facility] Work Phone: Comment on above: PATIENT WAS FASTINGP ERFORMED BY: ILENE Kenneth Petersonlin[address] [facility] [place] [id number] Protein Ql (U) Negative Normal Comprehens alan Internal Medicine; [facility] Work Phone: Comment on above: PATIENT WAS FASTINGP ERFORMED BY: ILENE Kenneth Reynaga6[address] [facility] [id number] Specific gravity (U) [Rel density] 1.006 1 Normal 1.005-1.030 [facility]; [facility] Work Phone: Comment on above: PATIENT WAS FASTINGP ERFORMED BY: ILENE Kenneth Petersonlin[address] [facility]in [place] [id number] Urobilinogen (U) [Mass/Vol] 0.2 mg/dL Normal 0.2-1.0 [facility]; [facility] Work Phone: Comment on above: PATIENT WAS FASTINGP ERFORMED BY: [facility] Ldscxd5599 [address] RoadDublin [place] [id number] CBC W/AUTO DIFF WBC (12672)O rdered By: Strap Sewer on 05-03-2020 Basophils (Bld) [#/Vol] 0.1 {x10E3/uL} Normal 0.0-0.2 [facility] Work Phone: Comment on above: PATIENT WAS FASTINGP ERFORMED BY: LabCox NorthYgxsfe6882 [address] Roadblin [place] [id number] Basophils (Bld) [#/Vol] 0.1 10*3/uL Normal 0.0-0.2 [facility]; [facility] Work Phone: Comment on above: PATIENT WAS FASTINGP ERFORMED BY: [facility] Hospitallin6[address]Dublin [place] [id number] Basophils/100 WBC (Bld) 1 % Normal [facility] Work Phone: Comment on above: PATIENT WAS FASTINGP ERFORMED BY: [facility] RoadDavis Regional Medical Centerin [place] [id number] Eosinophils (Bld) [#/Vol] 0.4 {x10E3/uL} Normal 0.0-0.4 [facility] Work Phone: Comment on above: PATIENT WAS FASTINGP ERFORMED BY: [facility] [facility] [place] [id number] Eosinophils (Bld) [#/Vol] 0.4 10*3/uL Normal 0.0-0.4 [facility]; [facility] Work Phone: Comment on above: PATIENT WAS FASTINGP ERFORMED BY: [facility] Msryif5863 [address] RoadDublin [place] [id number] Eosinophils/100 WBC (Bld) 5 % Normal [facility] Work Phone: Comment on above: PATIENT WAS FASTINGP ERFORMED BY: LabK[facility] Center6[address]Dublin [place] [id number] Erythrocyte distribution width (RBC) [Ratio] 16.5 % Abnormal 11.7-15.4 [facility] Work Phone: Comment on above: PATIENT WAS FASTINGP ERFORMED BY: ILENE Reynaga[address] [facility] [id number] Hematocrit (Bld) [Volume fraction] 41.3 % Normal 34.0-46.6 [facility] Work Phone: Comment on above: PATIENT WAS FASTINGP ERFORMED BY: [facility] Fnmqrx[address] [facility] [id number] Hemoglobin (Bld) [Mass/Vol] 13.3 g/dL Normal 11.1-15.9 [facility] Work Phone: Comment on above: PATIENT WAS FASTINGP ERFORMED BY: ILENE Kenneth Petersonlin[address] [facility] [id number] Immature granulocytes (Bld) [#/Vol] 0.0 {x10E3/uL} Normal 0.0-0.1 [facility] Work Phone: Comment on above: PATIENT WAS FASTINGP ERFORMED BY: ILENE [facility]Western [facility] Xlkhtc[address] [facility] [id number] Immature granulocytes (Bld) [#/Vol] 0.0 10*3/uL Normal 0.0-0.1 [facility]; [facility] Work Phone: Comment on above: PATIENT WAS FASTINGP ERFORMED BY: [facility] Tpbgks[address] [facility] [id number] Immature granulocytes/100 WBC (Bld) 0 % Normal [facility] Work Phone: Comment on above: PATIENT WAS FASTINGP ERFORMED BY: [facility] Ukkmrh[address] [facility]in [place] [id number] Lymphocytes (Bld) [#/Vol] 2.0 {x10E3/uL} Normal 0.7-3.1 [facility] Work Phone: Comment on above: PATIENT WAS FASTINGP ERFORMED BY: [facility] Uogorz[address] [facility] [id number] Lymphocytes (Bld) [#/Vol] 2.0 10*3/uL Normal 0.7-3.1 [facility]; [facility] Work Phone: Comment on above: PATIENT WAS FASTINGP ERFORMED BY: ILENE LabCosusan PetersonUmuolw[address] [facility] [place] [id number] Lymphocytes/100 WBC (Bld) 24 % Normal [facility] Work Phone: Comment on above: PATIENT WAS FASTINGP ERFORMED BY: ILENE [facility] Ctgjfi4400 [address] Roadblin [place] [id number] MCH (RBC) [Entitic mass] 26.1 pg Abnormal 26.6-33.0 [facility] Internal Medicine Work Phone: Comment on above: PATIENT WAS FASTINGP ERFORMED BY: ILENE LabPaul PetersonDbgoes[address] [facility] [id number] MCHC (RBC) [Mass/Vol] 32.2 g/dL Normal 31.5-35.7 [facility] Work Phone: Comment on above: PATIENT WAS FASTINGP ERFORMED BY: ILENE LabCosusan PetersonKlaauw7110 [facility]in [place] [id number] MCV (RBC) [Entitic vol] 81 fL Normal 79-97 [facility] Internal Medicine Work Phone: Comment on above: PATIENT WAS FASTINGP ERFORMED BY: ILENE LabCosusan PetersonYxmfex[address] [facility] [id number] Monocytes (Bld) [#/Vol] 0.5 {x10E3/uL} Normal 0.1-0.9 [facility] Work Phone: Comment on above: PATIENT WAS FASTINGP ERFORMED BY: ILENE [facility] Zbyrfv1624 [address] RoadDublin [place] [id number] Monocytes (Bld) [#/Vol] 0.5 10*3/uL Normal 0.1-0.9 [facility]; [facility] Work Phone: Comment on above: PATIENT WAS FASTINGP ERFORMED BY: ILENE [facility] Cxtylq4788 [address] RoadDublin [place] [id number] Monocytes/100 WBC (Bld) 6 % Normal [facility] Work Phone: Comment on above: PATIENT WAS FASTINGP ERFORMED BY: ILENE [facility] Junqfv4945 [address] RoadDublin [place] [id number] Neutrophils (Bld) [#/Vol] 5.3 {x10E3/uL} Normal 1.4-7.0 [facility] Work Phone: Comment on above: PATIENT WAS FASTINGP ERFORMED BY: CB [facility] Pxrqht8182 [address] RoadDublin [place] [id number] Neutrophils (Bld) [#/Vol] 5.3 10*3/uL Normal 1.4-7.0 [facility]; [facility] Work Phone: Comment on above: PATIENT WAS FASTINGP ERFORMED BY: ILENE [facility] Bnajzx7047 [address] RoadDublin [place] [id number] Neutrophils/100 WBC (Bld) 64 % Normal [facility] Work Phone: Comment on above: PATIENT WAS FASTINGP ERFORMED BY: ILENE [facility] Uhxhlu1635 [address] RoadDublin [place] [id number] Platelets (Bld) [#/Vol] 277 {x10E3/uL} Normal 150-450 [facility] Work Phone: Comment on above: PATIENT WAS FASTINGP ERFORMED BY: ILENE [facility] Bvfvzm0856 [address] RoadDublin [place] [id number] Platelets (Bld) [#/Vol] 277 10*3/uL Normal 150-450 [facility]; [facility] Work Phone: Comment on above: PATIENT WAS FASTINGP ERFORMED BY: CB [facility] Tqxtae0469 [address] RoadDublin [place] [id number] RBC (Bld) [#/Vol] 5.09 {x10E6/uL} Normal 3.77-5.28 [facility] Internal Medicine Work Phone: Comment on above: PATIENT WAS FASTINGP ERFORMED BY: CB [facility] Autopj2135 [address] RoadDublin [place] [id number] RBC (Bld) [#/Vol] 5.09 10*6/uL Normal 3.77-5.28 [facility]; [facility] Work Phone: Comment on above: PATIENT WAS FASTINGP ERFORMED BY: ILENE Kenneth Reynaga[address] [facility] [place] [id number] WBC (Bld) [#/Vol] 8.4 {x10E3/uL} Normal 3.4-10.8 [facility] Work Phone: Comment on above: PATIENT WAS FASTINGP ERFORMED BY: ILENE [facility] Hebhyr[address] [facility] [place] [id number] WBC (Bld) [#/Vol] 8.4 10*3/uL Normal 3.4-10.8 [facility] Internal Medicine; [facility] Work Phone: Comment on above: PATIENT WAS FASTINGP ERFORMED BY: ILENE LabGiuliano Fpffab2578 [facility] [id number] LIPID PANEL (63576)Ordered B y: Strap Sewer on 05-03-2020 Cholesterol [Mass/Vol] 212 mg/dL Abnormal 100-[address]erens[facility] Internal Medicine Work Phone: Comment on above: PATIENT WAS FASTINGP ERFORMED BY: ILENE LabGiulianosusan Xepuqj0394 [facility] [id number] Cholesterol in HDL [Mass/Vol] 51 mg/dL Normal [facility] Work Phone: Comment on above: PATIENT WAS FASTINGP ERFORMED BY: ILENE [facility] Npnnme2785 [facility]in [place] [id number] Cholesterol in LDL/Cholesterol in HDL [Mass ratio] 2.8 {ratio} Normal 0.0-3.2 [facility] Work Phone: Comment on above: LDL/HDL Ratio Men Wo men 1/2 Avg.Risk 1.0 1.5 Avg.Risk 3.6 3.2 2X Avg.Risk 6.2 5.0 3X Avg.Risk 8.0 6.1 PATIENT WAS FASTINGP ERFORMED BY: ILENE [facility] Wmcvvf6237 [facility] [id number] Triglyceride [Mass/Vol] 97 mg/dL Normal 0-149 [facility] Work Phone: Comment on above: PATIENT WAS FASTINGP ERFORMED BY: ILENE MonicaPaul PetersonDmkqor3559 [facility] [id number] LIPID PANEL (20567) 17 mg/dL Normal 5-40 [facility] Internal Medicine Work Phone: Comment on above: PATIENT WAS FASTINGP ERFORMED BY: ILENE [facility] Umorym3641 [facility] [id number] LIPID PANEL (15079) 144 mg/dL Abnormal 0-99 [facility] Internal Medicine Work Phone: Comment on above: PATIENT WAS FASTINGP ERFORMED BY: ILENE Petersonlin6370 [facility] [id number] LIPID PANEL (95785) 2.8 {ratio} Normal 0.0-3.2 [facility] Internal Medicine; [facility] Work Phone: Comment on above: LDL/HDL Ratio Men Wo men 1/2 Avg.Risk 1.0 1.5 Avg.Risk 3.6 3.2 2X Avg.Risk 6.2 5.0 3X Avg.Risk 8.0 6.1 PATIENT WAS FASTINGP ERFORMED BY: ILENE Petersonlin6370 [facility] [id number] METABOLIC PANEL, COMPREHENSI VE (20347)Ordered By: Strap Sewer on 05-03-2020 Albumin [Mass/Vol] 4.3 g/dL Normal 3.8-4.8 [facility] Internal Medicine Work Phone: Comment on above: PATIENT WAS FASTINGP ERFORMED BY: ILENE [facility] Amfchu2729 [facility] [id number] Albumin/Globulin [Mass ratio] 1.4 {ratio} Normal 1.2-2.2 [facility] Work Phone: Comment on above: PATIENT WAS FASTINGP ERFORMED BY: ILENE [facility] Dhxgbl9384 [facility] [id number] ALP [Catalytic activity/Vol] 90 [iU]/L Normal 39-117 [facility] Work Phone: Comment on above: PATIENT WAS FASTINGP ERFORMED BY: [facility] Jocanb4582 [address] RoadDublin [place] [id number] ALP [Catalytic activity/Vol] 90 U/L Normal 39-117 [facility]; [facility] Work Phone: Comment on above: PATIENT WAS FASTINGP ERFORMED BY: [facility] Uqmlpf3037 [address] RoadDublin [place] [id number] ALT [Catalytic activity/Vol] 14 [iU]/L Normal 0-32 [facility] Work Phone: Comment on above: PATIENT WAS FASTINGP ERFORMED BY: [facility] Aiaoia4574 [address] RoadDublin [place] [id number] ALT [Catalytic activity/Vol] 14 U/L Normal 0-32 [facility]; [facility] Work Phone: Comment on above: PATIENT WAS FASTINGP ERFORMED BY: [facility] Nanumk0675 [address] RoadDublin [place] [id number] AST [Catalytic activity/Vol] 18 [iU]/L Normal 0-40 [facility] Work Phone: Comment on above: PATIENT WAS FASTINGP ERFORMED BY: [facility] Cuzbic7173 [address] RoadDublin [place] [id number] AST [Catalytic activity/Vol] 18 U/L Normal 0-40 [facility]; [facility] Work Phone: Comment on above: PATIENT WAS FASTINGP ERFORMED BY: [facility] Bcrmqd4839 [address] RoadDublin [place] [id number] Bilirubin [Mass/Vol] 0.2 mg/dL Normal 0.0-1.2 Comp [facility]ensive Internal Medicine Work Phone: Comment on above: PATIENT WAS FASTINGP ERFORMED BY: [facility] Ibbaot1065 [address]Dublin [place] [id number] Calcium [Mass/Vol] 9.1 mg/dL Normal 8.7-10.2 [facility] Internal Medicine Work Phone: Comment on above: PATIENT WAS FASTINGP ERFORMED BY: CB [facility] Ggihsi7444 [address] RoadDublin [place] [id number] Chloride [Moles/Vol] 106 mmol/L Normal 96-106 [facility]ensive Internal Medicine Work Phone: Comment on above: PATIENT WAS FASTINGP ERFORMED BY: CB [facility] Ufszxu8532 [address] RoadDublin [place] [id number] CO2 [Moles/Vol] 23 mmol/L Normal 20-29 [facility] Internal Medicine Work Phone: Comment on above: PATIENT WAS FASTINGP ERFORMED BY: CB [facility] Ajktqk3434 [address] RoadDublin [place] [id number] Creatinine [Mass/Vol] 0.68 mg/dL Normal 0.57-1.00 [facility] Work Phone: Comment on above: PATIENT WAS FASTINGP ERFORMED BY: CB [facility] Guedji7241 [address]Dublin [place] [id number] GFR/1.73 sq M predicted among blacks CKD-EPI (S/P/Bld) [Vol rate/Area] 120 mL/min/1.73 Normal [facility] Work Phone: Comment on above: PATIENT WAS FASTINGP ERFORMED BY: [facility] Wsnglj9690 [address] RoadDublin [place] [id number] GFR/1.73 sq M predicted among non-blacks CKD-EPI (S/P/Bld) [Vol rate/Area] 104 mL/min/1.73 Normal [facility] Work Phone: Comment on above: PATIENT WAS FASTINGP ERFORMED BY: CB [facility] Ggskut4626 [address] RoadDublin [place] [id number] Globulin (S) [Mass/Vol] 3.1 g/dL Normal 1.5-4.5 [facility] Work Phone: Comment on above: PATIENT WAS FASTINGP ERFORMED BY: CB [facility] Apetdj6436 [address] RoadDublin [place] [id number] Glucose [Mass/Vol] 93 mg/dL Normal 65-99 [facility] Internal Medicine Work Phone: Comment on above: PATIENT WAS FASTINGP ERFORMED BY: ILENE [facility] Hbtwig3982 [address] RoadDublin [place] [id number] Potassium [Moles/Vol] 4.8 mmol/L Normal 3.5-5.2 [facility] Work Phone: Comment on above: PATIENT WAS FASTINGP ERFORMED BY: ILENE [facility] Ssccoe7000 [address] RoadDublin [place] [id number] Protein [Mass/Vol] 7.4 g/dL Normal 6.0-8.5 [facility] Internal Medicine Work Phone: Comment on above: PATIENT WAS FASTINGP ERFORMED BY: ILENE LabCosusan Cbofii2952 [address] RoadDublin [place] [id number] Sodium [Moles/Vol] 141 mmol/L Normal 134-144 [facility] Internal Medicine Work Phone: Comment on above: PATIENT WAS FASTINGP ERFORMED BY: ILENE LabCosusan Xoluby7824 [address] RoadDublin [place] [id number] Urea nitrogen [Mass/Vol] 16 mg/dL Normal 6-24 [facility] Internal Medicine Work Phone: Comment on above: PATIENT WAS FASTINGP ERFORMED BY: ILENE LabCosusan Cipwdn7361 [address] RoadDublin [place] [id number] Urea nitrogen/Creatinine [Mass ratio] 24 mg/mg Abnormal 9-23 [facility] Work Phone: Comment on above: PATIENT WAS FASTINGP ERFORMED BY: ILENE [facility] Zemreb3078 [address]Dublin [place] [id number] MICROALBUMINOrdered By: Syst em Communication Professor on 05-03-2020 Albumin DL <= 20 mg/L (U) [Mass/Vol] mg/dL Normal [facility] Internal Medicine Work Phone: Comment on above: Verified by repeat analysis PATIENT WAS FASTINGP ERFORMED BY: ILENE [facility] Ouukuc6994 [address]Dublin [place] [id number] Albumin DL <= 20 mg/L (U) [Mass/Vol] mg/dL Normal [facility]; [facility] Work Phone: Comment on above: Verified by repeat analysis PATIENT WAS FASTINGP ERFORMED BY: ILENE LabPaul [id number]Dublin [place] [id number] Albumin/Creatinine (U) [Mass ratio] <9 Normal 0-29 [facility] Work Phone: Comment on above: Normal: 0 - 29 Moder ately increased: 30 - 300 Severely increased: >300 Please note reference interval change PATIENT WAS FASTINGP ERFORMED BY: ILENE [facility] [id number] [address]Dublin [place] [id number] Creatinine (U) [Mass/Vol] 31.7 mg/dL Normal [facility] Work Phone: Comment on above: PATIENT WAS FASTINGP ERFORMED BY: ILENE Petersonlin6[address]Dublin [place] [id number] URINALYSIS, W/ MICRO ([id number]) Ordered By: Strap Sewer on 05-03-2020 Appearance (U) Cloudy Abnormal Comprehens alan Internal Medicine Work Phone: Comment on above: PATIENT WAS FASTINGP ERFORMED BY: ILENE LabPaul PetersonAeilqf0588 [address]Dublin [place] [id number] Bilirubin Ql (U) Negative Normal Comprehe nsive Internal Medicine Work Phone: Comment on above: PATIENT WAS FASTINGP ERFORMED BY: ILENE LabGiulianorp Nmavkg6[address]Dublin [place] [id number] Bilirubin Ql (U) Negative Normal Comprehe nsive [facility] Medicine; [facility] Work Phone: Comment on above: PATIENT WAS FASTINGP ERFORMED BY: ILENE [facility] [id number]Dublin [place] [id number] Color (U) Yellow Normal [facility] Work Phone: Comment on above: PATIENT WAS FASTINGP ERFORMED BY: ILENE LabPaul [id number]Dublin [place] [id number] Glucose Ql (U) Negative Normal Comprehens al[facility] Work Phone: Comment on above: PATIENT WAS FASTINGP ERFORMED BY: ILENE [facility] Ynhrej6[address]Dublin [place] [id number] Glucose Ql (U) Negative Normal Comprehens [facility]; [facility] Work Phone: Comment on above: PATIENT WAS FASTINGP ERFORMED BY: ILENE [facility] [id number] [address]Dublin [place] [id number] Hemoglobin Ql (U) Negative Normal Compreh ensive [facility] Work Phone: Comment on above: PATIENT WAS FASTINGP ERFORMED BY: ILENE [facility] [id number] [address]Dublin [place] [id number] Hemoglobin Ql (U) Negative Normal Compreh ensive [facility]; [facility] Work Phone: Comment on above: PATIENT WAS FASTINGP ERFORMED BY: ILENE [facility] [id number] [address]Dublin [place] [id number] Ketones Ql (U) Negative Normal Comprehens al[facility] Work Phone: Comment on above: PATIENT WAS FASTINGP ERFORMED BY: ILENE [facility] [id number]Dublin [place] [id number] Ketones Ql (U) Negative Normal Comprehens al[facility]; [facility] Work Phone: Comment on above: PATIENT WAS FASTINGP ERFORMED BY: ILENE [facility] Ddaeac4069 [address] RoadDublin [place] [id number] Leukocyte esterase Test strip Ql (U) Negative Normal [facility] Work Phone: Comment on above: PATIENT WAS FASTINGP ERFORMED BY: ILENE [facility] Yaijrq7829 [address]Dublin [place] [id number] Leukocyte esterase Test strip Ql (U) Negative Normal [facility]; [facility] Work Phone: Comment on above: PATIENT WAS FASTINGP ERFORMED BY: ILENE [facility] Rmtfap2843 [address]Dublin [place] [id number] Microscopic observation LM Nom (Urine sed) MICRON Normal [facility] Work Phone: Comment on above: Microscopic follows if indicated. PATIENT WAS FASTINGP ERFORMED BY: ILENE [facility] Iytpuy4794 [address]Dublin [place] [id number] Microscopic observation LM Nom (Urine sed) See below: Normal [facility] Work Phone: Comment on above: Microscopic was alannah cated and was performed. PATIENT WAS FASTINGP ERFORMED BY: ILENE [facility] Iqavxx3485 [address]Dublin [place] [id number] Nitrite Ql (U) Negative Normal Comprehens [facility] Work Phone: Comment on above: PATIENT WAS FASTINGP ERFORMED BY: ILENE [facility] [id number] [address]Dublin [place] [id number] Nitrite Ql (U) Negative Normal Comprehens al[facility]; [facility] Work Phone: Comment on above: PATIENT WAS FASTINGP ERFORMED BY: ILENE [facility] Uajnsq25[address]Dublin [place] [id number] pH (U) 6.5 [pH] Normal 5.0-7.5 [facility] Work Phone: Comment on above: PATIENT WAS FASTINGP ERFORMED BY: ILENE [facility] [id number] [address]Dublin [place] [id number] Protein Ql (U) Negative Normal Comprehens [facility] Work Phone: Comment on above: PATIENT WAS FASTINGP ERFORMED BY: ILENE [facility] [id number] [address]Dublin [place] [id number] Protein Ql (U) Negative Normal Comprehens al[facility]; [facility] Work Phone: Comment on above: PATIENT WAS FASTINGP ERFORMED BY: ILENE [facility] Akjpso3299 [address]Dublin [place] [id number] Specific gravity (U) [Rel density] 1.008 1 Normal 1.005-1.030 [facility] Work Phone: Comment on above: PATIENT WAS FASTINGP ERFORMED BY: ILENE [facility] [id number]Dublin [place] [id number] Urobilinogen (U) [Mass/Vol] 0.2 mg/dL Normal 0.2-1.0 [facility]; [facility] Work Phone: Comment on above: PATIENT WAS FASTINGP ERFORMED BY: ILENE LabCosusan Iggnyw4[address]Dublin [place] [id number] Urobilinogen Test strip (U) [Mass/Vol] 0.2 mg/dL Normal 0.2-1.0 [facility] Work Phone: Comment on above: PATIENT WAS FASTINGP ERFORMED BY: ILENE LabCo Epmtsp3420 [address]blin [place] [id number] C-REACT PROT HIGH SENS(hsCRP ) ([id number])Ordered By: Strap Sewer on 01-22-2020 CRP High sensitivity method [Mass/Vol] 7.74 mg/L Abnormal 0.00-3.00 [facility] Work Phone: Comment on above: Relative Risk for Fu ture Cardiovascular Event Low <1.00 Average 1.00 - 3.00 High >3.00 PATIENT WAS FASTINGP ERFORMED BY: ILENE LabWestern [facility] Bgzxjj[address] [facility]in [place] [id number] GLUCOSE ([id number])Ordered By: S ystem Communication Professor on 01-22-2020 Glucose [Mass/Vol] 85 mg/dL Normal 65-99 [facility] Internal Medicine Work Phone: Comment on above: PATIENT WAS FASTINGP ERFORMED BY: ILENE [facility] Avenos6[address]blin [place] [id number] LIPID PANEL ([id number])Ordered B y: Strap Sewer on 01-22-2020 Cholesterol [Mass/Vol] 206 mg/dL Abnormal 100-199 [facility] Work Phone: Comment on above: PATIENT WAS FASTINGP ERFORMED BY: ILENE [facility] Xluhpm5211 [address]Dublin [place] [id number] Cholesterol in HDL [Mass/Vol] 55 mg/dL Normal [facility] Work Phone: Comment on above: PATIENT WAS FASTINGP ERFORMED BY: ILENE [facility] [id number] [address]Dublin [place] [id number] Cholesterol in LDL [Mass/Vol] 124 mg/dL Abnormal 0-99 [facility] Work Phone: Comment on above: PATIENT WAS FASTINGP ERFORMED BY: ILENE Petersonlin6370 [facility] [id number] Cholesterol in LDL/Cholesterol in HDL [Mass ratio] 2.3 {ratio} Normal 0.0-3.2 [facility] Work Phone: Comment on above: LDL/HDL Ratio Men Wo men 1/2 Avg.Risk 1.0 1.5 Avg.Risk 3.6 3.2 2X Avg.Risk 6.2 5.0 3X Avg.Risk 8.0 6.1 PATIENT WAS FASTINGP ERFORMED BY: ILENE Petersonlin6370 [facility] [id number] Cholesterol in VLDL [Mass/Vol] 27 mg/dL Normal 5-40 [facility] Work Phone: Comment on above: PATIENT WAS FASTINGP ERFORMED BY: ILENE Petersonlin6370 [facility] [id number] Triglyceride [Mass/Vol] 136 mg/dL Normal 0-149 [facility] Work Phone: Comment on above: PATIENT WAS FASTINGP ERFORMED BY: ILENE Petersonlin6370 [facility] [id number] Vital Signs Date Time Vital Sign Value Performing Clinician Facility 12-28-2022 13:02-0400 Body temperature 97.7 [degF] [facility] 12-28-2022 13:02-0400 Diastolic blood pressure 76 mm[Hg] [facility] 12-28-2022 13:02-0400 Heart rate 58 /min [facility] 12-28-2022 13:02-0400 Respiratory rate 16 /min [facility] 12-28-2022 13:02-0400 SaO2% (BldA) [Mass fraction] 95 % [facility] 12-28-2022 13:02-0400 Systolic blood pressure 129 mm[Hg] [facility] 12-28-2022 10:29-0400 Body height 172.72 cm [facility] 12-28-2022 10:29-0400 Body mass index (BMI) [Ratio] 39 kg/m2 [facility] 12-28-2022 10:29-0400 Body weight 116.57 kg [facility] 08-06-2022 07:21-0500 [facility]; [facility] Work Phone: 08-06-2022 07:21-0500 Body mass index (BMI) [Ratio] 39.8 kg/m2 [facility]; [facility] Work Phone: 08-06-2022 07:21-0500 Body surface area Derived from formula 2.24 m2 Elie [facility]; [facility] Work Phone: 08-06-2022 07:21-0500 Body temperature 97.3 [degF] Elie Thorne [facility] Comprehensiv e Internal Medicine; [facility] Work Phone: 08-06-2022 07:21-0500 [facility]; [facility] Work Phone: 08-06-2022 07:21-0500 Diastolic blood pressure 80 mm[facility]Hg[facility]; [facility] Work Phone: Comment on above: Patient Position: Sitting; Cuff Location : Left Arm; Cuff Size: Standard 08-06-2022 07:21-0500 Heart rate 81 /min [facility]; [facility] Work Phone: Comment on above: Pattern: Regular 08-06-2022 07:21-0500 Respiratory rate 16 /min [facility] Comprehensiv e Internal Medicine; [facility] Work Phone: Comment on above: Pattern: Unlabored 08-06-2022 07:21-0500 SaO2% (BldA) [Mass fraction] 97 % Elie [facility]; [facility] Work Phone: Comment on above: Room air 08-06-2022 07:21-0500 Systolic blood pressure 132 mm[Hg] Yvonnereginogabe Fadumo [facility]; [facility] Work Phone: Comment on above: Patient Position: Sitting; Cuff Location : Left Arm; Cuff Size: Standard 01-30-2022 12:57-0400 Body height 170.18 cm Anoop White LPN [facility]; [facility] Work Phone: 01-30-2022 12:57-0400 Body mass index (BMI) [Ratio] 37.28 kg/m2 Anoop White LPN [facility]; [facility] Work Phone: 01-30-2022 12:57-0400 Body surface area Derived from formula 2.18 m2 Anoop White LPN [facility]; [facility] Work Phone: 01-30-2022 12:57-0400 Body weight 107.96 kg Anoop White LPN [facility]; [facility] Work Phone: 01-21-2022 11:09-0400 Body height 170.18 cm Padmini Elder LPN [facility]; [facility] Work Phone: 01-21-2022 11:09-0400 Body mass index (BMI) [Ratio] 37.28 kg/m2 Padmini Elder LPN [facility]; [facility] Work Phone: 01-21-2022 11:09-0400 Body surface area Derived from formula 2.18 m2 Padmini Elder LPN [facility]; [facility] Work Phone: 01-21-2022 11:09-0400 Body temperature 97.1 [degF] Padmini Elder LPN [facility]; [facility] Work Phone: 01-21-2022 11:09-0400 Body weight 107.96 kg Padmini Elder LPN [facility]; [facility] Work Phone: 01-21-2022 11:09-0400 Diastolic blood pressure 82 mm[Hg] Padmini Elder LPN [facility]; [facility] Work Phone: Comment on above: Patient Position: Sitting; Cuff Location : Left Arm; Cuff Size: Standard 01-21-2022 11:09-0400 Heart rate 69 /min Padmini Elder OANH [facility]; [facility] Work Phone: Comment on above: Pattern: Regular 01-21-2022 11:09-0400 Respiratory rate 16 /min Padminijohana Rodríguezgo HUGO [facility]; [facility] Work Phone: Comment on above: Pattern: Unlabored 01-21-2022 11:09-0400 SaO2% (BldA) [Mass fraction] 98 % Padminijohana Rodríguezgo HUGO [facility]; [facility] Work Phone: Comment on above: Room air 01-21-2022 11:09-0400 Systolic blood pressure 108 mm[Hg] Padmini Jael LPN [facility]; [facility] Work Phone: Comment on above: Patient Position: Sitting; Cuff Location : Left Arm; Cuff Size: Standard 04-24-2021 07:03-0400 Body height 170.18 cm Celsa Galindoius [facility]; [facility] Work Phone: 04-24-2021 07:03-0400 Body mass index (BMI) [Ratio] 39.16 kg/m2 Celsa Gravius [facility]; [facility] Work Phone: 04-24-2021 07:03-0400 Body surface area Derived from formula 2.22 m2 Celsa Gravius [facility]; [facility] Work Phone: 04-24-2021 07:03-0400 Body weight 113.4 kg Celsa Gravius [facility]; [facility] Work Phone: 03-03-2021 08:13-0400 Body height 170.18 cm Celsa Gravius [facility]; [facility] Work Phone: 03-03-2021 08:13-0400 Body mass index (BMI) [Ratio] 39.16 kg/m2 Celsa Gravius [facility]; [facility] Work Phone: 03-03-2021 08:13-0400 Body surface area Derived from formula 2.22 m2 Celsa Arreaga [facility]; [facility] Work Phone: 03-03-2021 08:13-0400 Body temperature 97.3 [degF] Celsa Arreaga CMA Comprehensiv e [facility]; [facility] Work Phone: Comment on above: Method: Infrared 03-03-2021 08:13-0400 Body weight 113.4 kg Celsa Arreaga [facility]; [facility] Work Phone: 03-03-2021 08:13-0400 Diastolic blood pressure 82 mm[Hg] Celsa Arreaga CMA [facility]; [facility] Work Phone: Comment on above: Patient Position: Sitting; Cuff Location : Left Arm; Cuff Size: Standard 03-03-2021 08:13-0400 Heart rate 94 /min Celsa Arreaga [facility]; [facility] Work Phone: Comment on above: Pattern: Regular 03-03-2021 08:13-0400 Respiratory rate 18 /min Celsa Arreaga CMA Comprehensiv e [facility]; [facility] Work Phone: Comment on above: Pattern: Unlabored 03-03-2021 08:13-0400 SaO2% (BldA) [Mass fraction] 97 % Celsa Arraega [facility]; [facility] Work Phone: Comment on above: Room air 03-03-2021 08:13-0400 Systolic blood pressure 142 mm[Hg] Celsa Arreaga [facility]; [facility] Work Phone: Comment on above: Patient Position: Sitting; Cuff Location : Left Arm; Cuff Size: Standard 12-30-2020 10:02-0400 Body height 170.18 cm [facility]; [facility] Work Phone: 12-30-2020 10:02-0400 Body mass index (BMI) [Ratio] 37.59 kg/m2 [facility]; [facility] Work Phone: 12-30-2020 10:02-0400 Body mass index (BMI) [Ratio] 39.16 kg/m2 [facility]; [facility] Work Phone: 12-30-2020 10:02-0400 Body surface area Derived from formula 2.19 m2 [facility]; [facility] Work Phone: 12-30-2020 10:02-0400 Body surface area Derived from formula 2.22 m2 [facility]; [facility] Work Phone: 12-30-2020 10:02-0400 Body temperature 97 [degF] [facility]; [facility] Work Phone: Comment on above: Method: Thermal Scan 12-30-2020 10:02-0400 Body weight 108.86 kg [facility]; [facility] Work Phone: 12-30-2020 10:02-0400 Body weight 113.4 kg [facility]; [facility] Work Phone: 12-30-2020 10:02-0400 Diastolic blood pressure 78 mm[Hg] [facility]; [facility] Work Phone: Comment on above: Patient Position: Sitting; Cuff Location : Left Arm; Cuff Size: Standard 12-30-2020 10:02-0400 Heart rate 104 /min [facility]; [facility] Work Phone: Comment on above: Pattern: Regular 12-30-2020 10:02-0400 Respiratory rate 16 /min [facility]; [facility] Work Phone: Comment on above: Pattern: Unlabored 12-30-2020 10:02-0400 SaO2% (BldA) [Mass fraction] 98 % [facility]; [facility] Work Phone: Comment on above: Room air 12-30-2020 10:02-0400 Systolic blood pressure 130 mm[Hg] [facility]; [facility] Work Phone: Comment on above: Patient Position: Sitting; Cuff Location : Left Arm; Cuff Size: Standard 08-09-2020 09:31-0500 BMI (Body Mass Index) 37.59 kg/m2 [facility]; [facility] Work Phone: 08-09-2020 09:31-0500 Body weight 108.86 kg [facility]; [facility] Work Phone: 08-09-2020 09:31-0500 BSA (Body Surface Area) 2.19 m2 [facility]; [facility] Work Phone: 08-09-2020 09:31-0500 Height 170.18 cm [facility]; [facility] Work Phone: 05-24-2020 07:49-0400 BMI (Body Mass Index) 37.59 kg/m2 Celsa Galindoius [facility] Work Phone: 05-24-2020 07:49-0400 Body Temperature 96.9 [degF] Celsa Galindoius [facility] Comprehens e Internal Medicine Work Phone: Comment on above: Method: Infrared 05-24-2020 07:49-0400 Body weight 108.86 kg Celsa Josieius [facility] Work Phone: 05-24-2020 07:49-0400 BP Diastolic 88 mm[Hg] Celsa Gravius [facility] Work Phone: Comment on above: Patient Position: Sitting; Cuff Location : Left Arm; Cuff Size: Standard 05-24-2020 07:49-0400 BP Systolic 132 mm[Hg] Celsa Gravius [facility] Work Phone: Comment on above: Patient Position: Sitting; Cuff Location : Left Arm; Cuff Size: Standard 05-24-2020 07:49-0400 BSA (Body Surface Area) 2.19 m2 Celsa Gravius [employer]FIRE[employer] [facility] Work Phone: 05-24-2020 07:49-0400 Height 170.18 cm Celsa Arreaga CMA [facility] Work Phone: 05-24-2020 07:49-0400 Pulse (Heart Rate) 96 /min Celsa Arreaga CMA Comprehens alan Internal Medicine Work Phone: Comment on above: Pattern: Regular 05-24-2020 07:49-0400 Pulse Oximetry 98 % Jazmin Mann [facility] Internal Medicine Work Phone: Comment on above: Room air 05-24-2020 07:49-0400 Respiratory Rate 16 /min Celsa Arreaga CMA Comprehensiv e Internal Medicine Work Phone: Comment on above: Pattern: Unlabored 05-24-2020 07:49-0400 SaO2% (BldA) [Mass fraction] 98 % Celsa Arreaga [facility]; [facility] Work Phone: Comment on above: Room air 05-03-2020 07:13-0400 BMI (Body Mass Index) 38.06 kg/m2 Celsa Arreaga [facility] Work Phone: 05-03-2020 07:13-0400 Body Temperature 96.6 [degF] Celsa Arreaga CMA Comprehensiv e Internal Medicine Work Phone: Comment on above: Method: Infrared 05-03-2020 07:13-0400 Body weight 110.22 kg Celsa Arreaga [facility] Work Phone: 05-03-2020 07:13-0400 BP Diastolic 120 mm[Hg] Celsa Arreaga CMA [facility] Work Phone: Comment on above: Patient Position: Sitting; Cuff Location : Left Arm; Cuff Size: Standard 05-03-2020 07:13-0400 BP Systolic 152 mm[Hg] Celsa Arreaga [facility] Work Phone: Comment on above: Patient Position: Sitting; Cuff Location : Left Arm; Cuff Size: Standard 05-03-2020 07:13-0400 BSA (Body Surface Area) 2.2 m2 Celsa Arreaga CMA [facility] Work Phone: 05-03-2020 07:13-0400 Height 170.18 cm Celsa Arreaga [facility] Work Phone: 05-03-2020 07:13-0400 Pulse (Heart Rate) 105 /min Celsa Arreaga CMA Comprehens alan Internal Medicine Work Phone: Comment on above: Pattern: Regular 05-03-2020 07:13-0400 Pulse Oximetry 99 % Jazmin Mann [facility] Internal Medicine Work Phone: Comment on above: Room air 05-03-2020 07:13-0400 Respiratory Rate 16 /min Celsa Arreaga [employer]LECT[employer]OTIVE FIRER/FIREMAN Comprehensiv e Internal Medicine Work Phone: Comment on above: Pattern: Unlabored 05-03-2020 07:13-0400 SaO2% (BldA) [Mass fraction] 99 % Celsa Arreaga [facility]; [facility] Work Phone: Comment on above: Room air 02-09-2020 11:07-0400 BMI (Body Mass Index) 38.37 kg/m2 Anoop White [facility] Internal Medicine Work Phone: Comment on above: 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 had 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 -pt n ot having any symptoms 02-09-2020 11:07-0400 Body weight 111.13 kg Anoop White [employer]IL [employer]G [facility] Internal Medicine Work Phone: Comment on above: 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 had bp taken -pt n ot having any symptoms 02-09-2020 11:07-0400 BP Diastolic 100 mm[Hg] Anoop White [facility] Internal Medicine Work Phone: Comment on above: Patient Position: Sitting; Cuff Location : Left Arm; Cuff Size: Standard 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 an d had bp taken -pt not having any symptoms 02-09-2020 11:07-0400 BP Systolic 148 mm[Hg] Anoop White [employer]IL [employer]G [facility] Internal Medicine Work Phone: Comment on above: Patient Position: Sitting; Cuff Location : Left Arm; Cuff Size: Standard 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 an d had bp taken -pt not having any symptoms 02-09-2020 11:07-0400 BSA (Body Surface Area) 2.2 m2 Anoop Christopher [facility] Work Phone: Comment on above: 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 had bp taken -pt n ot having any symptoms 02-09-2020 11:07-0400 Height 170.18 cm Anoop Christopher [facility] Work Phone: Comment on above: 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 had bp taken -pt n ot having any symptoms 01-19-2020 09:01-0400 BMI (Body Mass Index) 38.37 kg/m2 Jazmin Mann DO Work Phone: [facility] Work Phone: Comment on above: no vs per patient with virtual visit -- 01-19-2020 09:01-0400 Body weight 111.13 kg Jazmin Mann DO Work Phone: [facility] Work Phone: Comment on above: no vs per patient with virtual visit -- 01-19-2020 09:01-0400 BSA (Body Surface Area) 2.2 m2 Jazmin Mann DO Work Phone: [facility] Internal Medicine Work Phone: Comment on above: no vs per patient with virtual visit -- 01-19-2020 09:01-0400 Height 170.18 cm Jazmin Mann DO Work Phone: [facility] Work Phone: Comment on above: no vs per patient with virtual visit -- Encounters Encounter Date Encounter Type Care Provider Facility Start: 04-27-2025 ambulatory Jazmin Aggarwal y:DENISHA Start: 03-13-2025 Non-patient / Non-visit Dr. Stuart Madison MD -[facility] Start: 03-13-2025 End: 03-13-[address] Jazmin Mann DO Work Phone: -Cat Scan [facility] Start: 03-13-2025 End: 03-13-[address] Jazmin Mann DO -Cat Scan [facility] Work Phone: Start: 03-13-2025 End: 03-13-2025 ambulatory Jazmin Johnathan Facility:[facility] Start: 07-24-2024 End: 07-24-2024 ambulatory Jazmin Johnathan Facility:[facility] Start: 07-23-2023 End: 07-23-2023 ambulatory [facility] Work Phone: Start: 07-23-2023 End: 07-23-2023 Patient encounter procedure [facility] Work Phone: Start: 05-20-2023 End: 05-20-2023 Annotation/Addendum Jazmin Johnathan DO Work Phone: [facility] Start: 12-28-2022 End: 12-28-2022 Admission to same day surgery center [facility] Start: 12-28-2022 End: 12-28-2022 ambulatory [facility] Work Phone: Start: 09-09-2022 End: 09-09-2022 ambulatory [facility] Work Phone: Start: 09-09-2022 End: 09-09-2022 Patient encounter procedure [facility] Start: 08-06-2022 End: 08-06-2022 Office outpatient visit 15 minutes Jazmin Johnathan DO Work Phone: [facility] Start: 08-06-2022 Review Jazmin Fearo n DO Work Phone: [facility] Start: 07-21-2022 ambulatory Jazmin Johnathan DO [facility] Start: 02-20-2022 End: 02-20-2022 Patient encounter procedure [facility] Start: 01-30-2022 End: 01-30-2022 Office outpatient visit [...] [facility] Start: 12-30-2020 Review Jazmin Barbero n DO Work Phone: [facility] Start: 08-09-2020 End: 08-09-2020 Office outpatient visit 15 minutes Jazmin Johnathan [facility] Start: 08-09-2020 Review Jazmin Barberon [facility] Start: 05-24-2020 End: 05-24-2020 Office outpatient visit 10 minutes Jazmin Johnathan [facility] Start: 05-03-2020 End: 05-03-2020 Office outpatient visit 25 minutes Jazmin Johnathan [facility] Start: 02-09-2020 End: 02-09-2020 Office outpatient visit 15 minutes Jazmin Johnathan [facility] Start: 01-19-2020 End: 01-19-2020 Office outpatient new 30 minutes Jazmin Johnathan [facility] Start: 01-19-2020 End: 01-19-2020 Patient encounter status Jazmin Johnathan DO Work Phone: [facility] Patient encounter status Winifred Cueva [facility]; [facility] Work Phone: Patient encounter status Winifred Cueva [facility]; [facility] Work Phone: Patient encounter status Celsa Gibson [facility]; [facility] Work Phone: Patient encounter status Elie Thorne [facility]; [facility] Work Phone: Patient encounter status Anoop White [employer] [facility]; [facility] Work Phone: Patient encounter status Elie Thorne [facility]; [facility] Work Phone: Procedures Date Procedure Procedure Detail Performing Clinician Start: 03-13-2025 CT angiography of coronary arteries Dr. Jazmin Mann DO Work Phone: Start: 07-23-2023 Screening mammography Start: 12-28-2022 End: 12-28-2022 Operative Report Procedure Note: See Note; NOTES: [facility] Medical Records Department [address] [place] [address] Operative Report 12/28/22 1220 MR#: [id number] Acct: [id number] Name: LORETTA LEMUS Rep #: [id number] : 1970 52 From: Rufus Garcia MD PCP: Dr. Jazmin Mann, DO Status:[facility] Location: [place] [address] Report of Operation Date of Procedure: 12/28/22 [...] right middle turbinate was medialized with a Maljamar elevator. Polyp was removed from the middle [...] The middle turbinate was medialized with a Maljamar elevator. A large polyp was removed from [...] Discharge Summary Procedure Note: See Note; NOTES: [facility] Medical Records Department [address] [place] [address] Discharge Summary 12/28/22 1219 MR#: [id number] Acct: [id number] Name: LORETTA LEMUS Rep #: [id number] : 1970 52 From: Rufus Garcia MD PCP: Dr. Jazmin Mann DO Status:[facility] Location: [place] [address] Providers Primary Care Physician: Dr. Jazmin Mann [...] Jazmin Mann DO Work Phone: Start: 12-28-2022 Functional Endoscopo ic Sinus Surgery (Not Applicable) Start: 09-09-2022 CT of face Start: 09-09-2022 End: 09-09-2022 Sinus/Facial Bone Procedure Note: See Note; NOTES: [facility] Imaging Services [address] [place] [address] Sinus/Facial Bone MR#: [id number] Acct: [id number] Name: LORETTA LEMUS Rep #: [id number] : 1970 F 51 From: Rodger house MD PCP: Dr. Jazmin Mann DO Status: REG CLI Study: Sinus/Facial Bone Date of Exam: 09/09/22 Exam# [id number] Ordering Dr: Rufus Garcia MD STUDY: CT [...] Signed: Rodger Willson MD at 14:43 EST Reading Location ID and State: [address] [place] [address] , Service support , CC: Dr. Jazmin Mann DO; Dr. Rufus Garcia MD Radio Commentator: Signed Rufus Garcia MD Work Phone: Start: 02-20-2022 Screening mammography Start: 02-20-2022 End: 02-20-2022 SCRN MAMM (CAD)W/LUPE BILAT Procedure Note: See Note; NOTES: [facility] Imaging Services [address] [place] [address] SCRN MAMM (CAD)W/LUPE BILAT MR#: [id number] Acct: [id number] Name: LORETTA LEMUS Rep #: [id number] : 1970 F 51 From: Rodger house MD PCP: Dr. Jazmin Mann DO Status: REG CL Study: SCRN MAMM (CAD)W/LUPE BILAT Date of Exam: 01/24 04/16 Exam# [id number] Ordering Dr: Jazmin Mann DO MAMMOGRAPHY - [...] delay biopsy of a clinically suspicious abnormality. [id number] Electronically Signed: Rodger Willson MD at 12:51 EDT , CC: Dr. Jazmin Mann DO Radio Commentator: Signed Jazmin Mann DO Work Phone: Start: 02-10-2021 End: 02-10-2021 SCRN MAMM (CAD)W/LUPE BILAT Comments: See Note; NOTES: [facility] Imaging Services [address] [place] [address] SCRN MAMM (CAD)W/LUPE BILAT MR#: [id number] Acct: [id number] Name: LORETTA LEMUS Rep #: [id number] : 1970 F 50 From: Rodger house MD PCP: Care Physician,No Primary Status: REG CLI Study: SCRN MAMM (CAD)W/LUPE BILAT Date of Exam: 01/23 04/15 Exam# [id number] Ordering Dr: Jazmin Mann DO MAMMOGRAPHY - [...] delay biopsy of a clinically suspicious abnormality. [id number] Electronically Signed: Rodger Willson MD at 9:17 EDT , Service support , CC: Dr. Jazmin Mann DO; No Primary Care Physician Radio Commentator: Signed Jazmin Mann DO Work Phone: Start: 12-30-2020 End: 12-30-2020 Chest PA and Lateral Comments: See Note; NOTES: [facility] Radiology [address] [place] [address] Chest PA and Lateral MR#: [id number] Acct: [id number] Name: LORETTA LEMUS Rep #: [id number] : 1970 F 50 From: Dale Chaudhary DO PCP: Care Physician, No Primary Status: DEP [facility] Study: Chest PA and Lateral Date of Exam: 12/30/20 Exam# [id number] Ordering Dr: Jazmin Mann DO STUDY: X-RAY [...] Dale Chaudhary DO at 15:56 EDT Tel [phone], Service support , CC: No Primary Care Physician; Dr. Jazmin Mann DO Radio Commentator: Signed Jazmin Mann DO Work Phone: section Celsa Grav ius Comment on above: had tubes tied durin g surgery section Anoop borja Comment on above: had tubes tied durin g surgery section Celsa Grav ius Comment on above: had tubes tied durin g surgery section [facility] Comment on above: had tubes tied durin g surgery section Celsa Grav ius Comment on above: had tubes tied durin g surgery section Winifred nelson [employer] Comment on above: had tubes tied durin g surgery section Celsa Grav ius ELECTRIC LOCOMOTIVE FIRER/FIREMAN Comment on above: had tubes tied durin g surgery section Kayela Radf ord ELECTRIC LOCOMOTIVE FIRER/FIREMAN Comment on above: had tubes tied durin g surgery section Anoop nelson [employer] Comment on above: had tubes tied durin g surgery section Kayela Radf ord ELECTRIC LOCOMOTIVE FIRER/FIREMAN Comment on above: had tubes tied durin g surgery Tonsillectomy Celsa Gravius Comment on above: 1975 Tonsillectomy Anoop Medina Comment on above: 1975 Tonsillectomy Celsa Gravius Comment on above: 1975 Tonsillectomy Winifred Cueva Comment on above: 1975 Tonsillectomy Celsa Gravius Comment on above: 1975 Tonsillectomy Winifred Gallardo PN Comment on above: 1975 Tonsillectomy Celsa Gravius ELECTRIC LOCOMOTIVE FIRER/FIREMAN Comment on above: 1975 Tonsillectomy Dyanaa Fadumo FRAZIER Comment on above: 1975 Tonsillectomy Anoop Gallardo PN Comment on above: 1975 Tonsillectomy Elie Thorne ELECTRIC LOCOMOTIVE FIRER/FIREMAN Comment on above: 1975 Plan of Treatment Date Care Activity Detail Author Start: 12-28-2022 Patient discharge [facility] Start: 12-28-2022 Ambulation without limitation [facility] Start: 12-28-2022 Medical regimen orders management [facility] Start: 12-28-2022 Procedure discontinued [facility] Start: 12-28-2022 Taking patient vital signs [facility] Start: 12-28-2022 Vital signs measurements [facility] Start: 12-28-2022 Medication education [facility] Start: 08-06-2022 Procedure Education Eprescribed prescriptions (G8553) [facility]; [facility] Work Phone: Start: 08-06-2022 Provider Instructions for Treatment [facility]; [facility] Work Phone: Start: 08-06-2022 Assay of thyroid stimulating hormone tsh TSH (25991) [facility]; [facility] Work Phone: Start: 08-06-2022 Urnls dip stick/tablet reagent auto microscopy URINALYSIS, W/ MICRO (20695) [facility]; [facility] Work Phone: Start: 08-06-2022 Urine albumin quantitative MICROALBUMIN: CREATININE RATIO (69946) AND (76713) [facility]; [facility] Work Phone: Start: 08-06-2022 Comprehensive metabolic panel METABOLIC PANEL, COMPREHENSIVE (07220) [facility]; [facility] Work Phone: Start: 08-06-2022 Lipid panel LIPID PANEL (25814) [facility]; [facility] Work Phone: Start: 08-06-2022 Blood count complete auto&auto difrntl wbc CBC W/AUTO DIFF WBC (06584) [facility]; [facility] Work Phone: Start: 01-30-2022 Lipid panel LIPID PANEL (98676) [facility]; [facility] Work Phone: [...] Assay of thyroid stimulating hormone tsh TSH (97052) [facility]; [facility] Work Phone: Start: 01-21-2022 Urnls dip stick/tablet reagent auto microscopy URINALYSIS, W/ MICRO (57874) [facility]; [facility] Work Phone: Start: 01-21-2022 Urine albumin quantitative MICROALBUMIN: CREATININE RATIO (91382) AND (53173) [facility]; [facility] Work Phone: Start: 01-21-2022 Comprehensive metabolic panel METABOLIC PANEL, COMPREHENSIVE (73290) [facility]; [facility] Work Phone: Start: 01-21-2022 Blood count complete auto&auto difrntl wbc CBC W/AUTO DIFF WBC (73610) [facility]; [facility] Work Phone: Start: 01-21-2022 Lipid panel LIPID PANEL (13724) [facility]; [facility] Work Phone: Start: 04-24-2021 Procedure Education Eprescribed prescriptions (G8553) [facility]; [facility] Work Phone: Start: 03-03-2021 Procedure Education Eprescribed prescriptions (G8553) [facility]; [facility] Work Phone: Start: 03-03-2021 Provider Instructions for Treatment [facility]; [facility] Work Phone: Start: 12-30-2020 Assay of thyroid stimulating hormone tsh TSH (07136) [facility]; [facility] Work Phone: Start: 12-30-2020 Lipid panel LIPID PANEL (82157) [facility]; [facility] Work Phone: Start: 12-30-2020 Urnls dip stick/tablet reagent auto microscopy URINALYSIS, W/ MICRO (37181) [facility]; [facility] Work Phone: Start: 12-30-2020 Urine albumin quantitative MICROALBUMIN: CREATININE RATIO (56865) AND (37344) [facility]; [facility] Work Phone: Start: 12-30-2020 Comprehensive metabolic panel METABOLIC PANEL, COMPREHENSIVE (06958) [facility]; [facility] Work Phone: Start: 12-30-2020 Blood count complete auto&auto difrntl wbc CBC W/AUTO DIFF WBC (07861) [facility]; [facility] Work [...] stick/tablet reagent auto microscopy URINALYSIS, W/ MICRO (56221) [facility] Work Phone: Start: 05-03-2020 Urine albumin quantitative MICROALBUMIN: CREATININE RATIO (97269) AND (34626) [facility] Work Phone: Start: 05-03-2020 Comprehensive metabolic panel METABOLIC PANEL, COMPREHENSIVE (93871) [facility] Work Phone: Start: 05-03-2020 Lipid panel LIPID PANEL (04330) [facility] Work Phone: Start: 05-03-2020 Blood count complete auto&auto difrntl wbc CBC W/AUTO DIFF WBC (55389) [facility] Work Phone: Start: 02-09-2020 Procedure Education Eprescribed prescriptions (G8553) [facility] Work Phone: Start: 02-09-2020 Provider Instructions for Treatment BP MONITORING - SELF [facility] Work Phone: Start: 01-19-2020 Procedure Education Eprescribed prescriptions (G8553) [facility] Work Phone: Patient referral [facility] Work Phone: [facility] Work [...] Immunizations Immunization Date Immunization Notes Care Provider Hank vital 08-26-2020 COVID-Moderna (100 MCG/0.5 ML) Jazmin Barberon DO Work Phone: [facility]; [facility] Work Phone: Payers Date Payer Category Payer Self-pay [id number] 2024 Unknown [id number] 2020 Unknown [id number] 1970 Unknown [id number] Unknown [employer] Unknown [id number] Unknown [id number] [id number] [id number] Unknown [id number] [id number] [id number] Unknown [id number] [id number] [id number] Unknown [id number] 2.16.8 [id number] Social History Date Type Detail Facility Alcohol Use: Alcohol Use: [facility] Work Phone: Caffeine Use Caffeine Use [facility] Work Phone: Comment on above: 1 cup of diet someth ing 3 days a wk light ex ercise Alcohol Use: Alcohol Use: [facility]; [facility] Work Phone: Start: 03-05-2020 End: 12-23-2022 Tobacco smoking status NHIS Unknown if ever smoked [facility] Start: 03-05-[address] [facility] Start: 1970 Sex Assigned At Female [facility] Start: 01-19-2024 Tobacco smoking status NHIS Never smoked tobacco (finding) [facility] NEGATED: Highlighted row [facility] Medical Equipment Procedure Code Equipment Code Equipment Origin al Text Equipment Identifier Dates FESS (functional endoscopic sinus surgery) Plant polysaccharide haemostatic agent, bioabsorbable ([id number] FDA Start: 12-28-2022 Goals Date Patient Goal Desired Activity /State Mental Status Date Assessment Result Facility 12-28-2022 Cognitive function Voice/Name [facility] Work Phone: Clinical Notes 01-31-2021 to 03-13-2025 Note Date & Type Note Facility 03-13-2025 Radiology Diagnostic study note [facility] Imaging Services [address] [place] [address] 03/13/25 1525 MR#: [id number] Acct: [id number] Name: LORETTA LEMUS Rep #:[id number] : 1970 54 From: Stuart Madison MD PCP: Dr. Jazmin Mann, DO Status:RE G CLI Y Location: CT Calcium Scoring Date of Study:: 03/13/25 Indications Indications: FH Coronary Calcium Scoring: High-resolution Computed Tomographic imaging of the chest was performed on [03/13/25 ], with particular attention paid to the coronary arteries. Images fromthe examination were analyzed for the presence and extent of coronary artery calcification , using coronary calcium quantification software. The patient tolerated the procedure well and there were no complications. The results of thecoronary calcification analysis are provided below. Findings Coronary Artery Left Main (LM): 2.38 Left Anterior Descending (LAD): 7.15 Left Circumflex (LCX): 1.19 Right Coronary Artery (RCA): 99.3 Total Agatston Score: 110.02 Percentile Rankin Calcium Scoring Interpretation: Different methods to categorize the overall amount of coronary plaque. Overall amount CAC SIS Visual of coronary plaque P1 Mild -100 <2 1-2 vessels with mild amount of plaque P2 Moderate 101-300 3-4 1-2 vessels with moderate amount, 3 vessels with mild amount of plaque P3 Severe 301-999 5-7 3 vessels with moderate amount, 1 vessel withsevere amount of plaque P4 Extensive >1000 >8 2-3 vessels with severe amount of plaque Calcium Score: Moderate: 1-2 vessels w/moderate amt, 3 vessels w/mild amt of plaque Conclusion: Moderate single-vessel plaque and mild plaque in other vessels. 03/13/25 1528 Date ___ _ Stuart Madison MD Cosigner Signature (if applicable): Date ____ CC: Dr. Stuart Madison MD; Dr. Jazmin Mann DO ~ Signed [facility] Work Phone: 03-13-2025 Radiology Diagnostic study note [facility] Imaging Services [address] [place], [place] [address] Limited Chest CT Cardiac Only MR#: [id number] Acct: [id number] Name: LORETTA LEMUS NOVEMBER Rep #: [id number] : 1970 F 54 From: Richard Willson MD PCP: Dr. Jazmin Mann DO Status: RE G CLI Study:Limited Chest CT Cardiac Only Date of E xam: 03/13/25 Exam# [id number] Ordering Dr: Alise Mann DO PROCEDURE: LIMITED CHEST CT CARDIAC ONLY 03/13/2025 REASON FOR EXAM: FAMILY HX OF CARDIOVASCULAR DZ Hypertension TECHNIQUE: LIMITED CHEST CT CARDIAC ONLY CONTRAST: None One or more dose reduction techniques were used (e.g., Automated exposure control, adjustment of the mA and/or kV according to patient size, use of iterative reconstruction technique). RADIATION DOSE SUMMARY: CTDlvol: 12.19 mGy DLP: 170.66 mGycm COMPARISON: None FINDINGS: Coronary artery calcification. The heart is not enlarged. Small to moderate-sized hiatal hernia. The lungs are clear. CT/Limited Chest CT Cardiac Only IMPRESSION: Coronary artery calcification. Reading Location: [id number] CC: Dr. Jazmin Mann DO ~ Radio Commentator: Signed [facility] 12-28-2022 Procedure note [facility] 01-31-2021 Note Loretta is a 50 y.o. [...] log home. 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 [facility] Discharge summary Note Date/Time December 28, 2022 12:20 pm [facility] Medical Records Department [address] [place] [address] Discharge Summary 12/28/22 1219 MR#: [id number] Acct: [id number] Name: LORETTA LEMUS Rep #:[id number] : 1970 52 From: Rufus Garcia MD PCP: Dr. Jazmin Mann DO Status:RE G [facility] Location: [place] [address] Providers Primary Care Physician: Dr. Jazmin Mann [...] Dr. Jazmin Mann DO; Dr. Rufus Garcia MD~ Signed [facility] Work Phone: Evaluation noteNo assessment information available [facility] Work Phone: Instructions* Name Dates Details How to Access Health Informa tion Online using Patient Portal and 3rd Green Party Apps Indication:Non-smoker Start:30-Dec-2020 Instruction Type:Patient Education Patient Instructions Indication:Non-smoker Start:30-Dec-2020 Instruction Type:Provider Instructions for Treatment How to Access Health Informa tion Online using Patient Portal and 3rd [employer] Apps Indication:Non-smoker Start:09-Aug-2020 Instruction Type:Patient Education Patient [...] tion Online using Patient Portal and 3rd [employer] Apps Indication:Non-smoker Start:30-Dec-2020 Instruction Type:Patient Education Patient Instructions Indication:Non-smoker Start:30-Dec-2020 Instruction Type:Provider Instructions for Treatment How to Access Health Informa tion Online using Patient Portal and 3rd [employer] Party Apps Indication:Non-smoker Start:09-Aug-2020 Instruction Type:Patient Education Patient [...] tion Online using Patient Portal and 3rd [employer] Party Apps Indication:Non-smoker Start:30-Dec-2020 Instruction Type:Patient Education Patient Instructions Indication:Non-smoker Start:30-Dec-2020 Instruction Type:Provider Instructions for Treatment How to Access Health Informa tion Online using Patient Portal and 3rd [employer] Party Apps Indication:Non-smoker Start:09-Aug-2020 Instruction Type:Patient Education Patient [...] Informa tion Online using Patient Portal and [employer] Apps Indication:Non-smoker Start:30-Dec-2020 Instruction Type:Patient Education Patient Instructions Indication:Non-smoker Start:30-Dec-2020 Instruction Type:Provider Instructions for Treatment How to Access Health Informa tion Online using Patient Portal and [employer] Apps Indication:Non-smoker Start:09-Aug-2020 Instruction Type:Patient Education Patient [...] tion Online using Patient Portal and 3rd [employer] Apps Indication:Non-smoker Start:24-Apr-2021 Instruction Type:Patient Education Patient Instructions Indication:Non-smoker Start:03-Mar-2021 Instruction Type:Provider Instructions for Treatment How to Access Health Informa tion Online using Patient Portal and 3rd [employer] Apps Indication:Non-smoker Start:03-Mar-2021 Instruction Type:Patient Education How to Access Health Informa tion Online using Patient Portal and 3rd Green Party Apps Indication:Non-smoker Start:30-Dec-2020 Instruction Type:Patient Education Patient Instructions Indication:Non-smoker Start:30-Dec-2020 Instruction Type:Provider Instructions for Treatment How to Access Health Informa tion Online using Patient Portal and 3rd [employer] Apps Indication:Non-smoker Start:09-Aug-2020 Instruction Type:Patient Education Patient [...] tion Online using Patient Portal and 3rd [employer] Apps Indication:Non-smoker Start:24-Apr-2021 Instruction Type:Patient Education Patient Instructions Indication:Non-smoker Start:03-Mar-2021 Instruction Type:Provider Instructions for Treatment How to Access Health Informa tion Online using Patient Portal and [employer] Indication:Non-smoker Start:03-Mar-2021 Instruction Type:Patient Education How to Access Health Informa tion Online using Patient Portal and [employer] Apps Indication:Non-smoker Start:30-Dec-2020 Instruction Type:Patient Education Patient Instructions Indication:Non-smoker Start:30-Dec-2020 Instruction Type:Provider Instructions for Treatment How to Access Health Informa tion Online using Patient Portal and [employer] Apps Indication:Non-smoker Start:09-Aug-2020 Instruction Type:Patient Education Patient [...] tion Online using Patient Portal and [employer] Apps Indication:Non-smoker Start:24-Apr-2021 Instruction Type:Patient Education Patient Instructions Indication:Non-smoker Start:03-Mar-2021 Instruction Type:Provider Instructions for Treatment How to Access Health Informa tion Online using Patient Portal and [employer] Apps Indication:Non-smoker Start:03-Mar-2021 Instruction Type:Patient Education How to Access Health Informa tion Online using Patient Portal and [employer] Apps Indication:Non-smoker Start:30-Dec-2020 Instruction Type:Patient Education Patient Instructions Indication:Non-smoker Start:30-Dec-2020 Instruction Type:Provider Instructions for Treatment How to Access Health Informa tion Online using Patient Portal and [employer] Apps Indication:Non-smoker Start:09-Aug-2020 Instruction Type:Patient Education Patient [...] tion Online using Patient Portal and [employer] Apps Indication:Non-smoker Start:24-Apr-2021 Instruction Type:Patient Education Patient Instructions Indication:Non-smoker Start:03-Mar-2021 Instruction Type:Provider Instructions for Treatment How to Access Health Informa tion Online using Patient Portal and [employer] Apps Indication:Non-smoker Start:03-Mar-2021 Instruction Type:Patient Education How to Access Health Informa tion Online using Patient Portal and [employer] Apps Indication:Non-smoker Start:30-Dec-2020 Instruction Type:Patient Education Patient Instructions Indication:Non-smoker Start:30-Dec-2020 Instruction Type:Provider Instructions for Treatment How to Access Health Informa tion Online using Patient Portal and [employer] Apps Indication:Non-smoker Start:09-Aug-2020 Instruction Type:Patient Education Patient [...] tion Online using Patient Portal and [employer] Apps Indication:BMI 37.0-37.9, adult Start:21-Jan-2022 Instruction Type:Patient Education Patient Instructions Indication:Non-smoker Start:24-Apr-2021 Instruction Type:Provider Instructions for Treatment How to Access Health Informa tion Online using Patient Portal and [employer] Apps Indication:Non-smoker Start:24-Apr-2021 Instruction Type:Patient Education Patient Instructions Indication:Non-smoker Start:03-Mar-2021 Instruction Type:Provider Instructions for Treatment How to Access Health Informa tion Online using Patient Portal and [employer] Apps Indication:Non-smoker Start:03-Mar-2021 Instruction Type:Patient Education How to Access Health Informa tion Online using Patient Portal and [employer] Apps Indication:Non-smoker Start:30-Dec-2020 Instruction Type:Patient Education Patient Instructions Indication:Non-smoker Start:30-Dec-2020 Instruction Type:Provider Instructions for Treatment How to Access Health Informa tion Online using Patient Portal and [employer] Apps Indication:Non-smoker Start:09-Aug-2020 Instruction Type:Patient Education Patient [...] Informa tion Online using Patient Portal and [employer] Apps Indication:BMI 37.0-37.9, adult Start:21-Jan-2022 Instruction Type:Patient Education Patient Instructions Indication:Non-smoker Start:24-Apr-2021 Instruction Type:Provider Instructions for Treatment How to Access Health Informa tion Online using Patient Portal and [employer] Apps Indication:Non-smoker Start:24-Apr-2021 Instruction Type:Patient Education Patient Instructions Indication:Non-smoker Start:03-Mar-2021 Instruction Type:Provider Instructions for Treatment How to Access Health Informa tion Online using Patient Portal and [employer] Apps Indication:Non-smoker Start:03-Mar-2021 Instruction Type:Patient Education How to Access Health Informa tion Online using Patient Portal and [employer] Apps Indication:Non-smoker Start:30-Dec-2020 Instruction Type:Patient Education Patient Instructions Indication:Non-smoker Start:30-Dec-2020 Instruction Type:Provider Instructions for Treatment How to Access Health Informa tion Online using Patient Portal and [employer] Apps Indication:Non-smoker Start:09-Aug-2020 Instruction Type:Patient Education Patient [...] Informa tion Online using Patient Portal and [employer] Apps Indication:Non-smoker Start:30-Jan-2022 Instruction Type:Patient Education Patient Instructions Indication:BMI 37.0-37.9, adult Start:21-Jan-2022 Instruction Type:Provider Instructions for Treatment How to Access Health Informa tion Online using Patient Portal and [employer] Apps Indication:BMI 37.0-37.9, adult Start:21-Jan-2022 Instruction Type:Patient Education Patient Instructions Indication:Non-smoker Start:24-Apr-2021 Instruction Type:Provider Instructions for Treatment How to Access Health Informa tion Online using Patient Portal and [employer] Apps Indication:Non-smoker Start:24-Apr-2021 Instruction Type:Patient Education Patient Instructions Indication:Non-smoker Start:03-Mar-2021 Instruction Type:Provider Instructions for Treatment How to Access Health Informa tion Online using Patient Portal and [employer] Apps Indication:Non-smoker Start:03-Mar-2021 Instruction Type:Patient Education How to Access Health Informa tion Online using Patient Portal and [employer] Apps Indication:Non-smoker Start:30-Dec-2020 Instruction Type:Patient Education Patient Instructions Indication:Non-smoker Start:30-Dec-2020 Instruction Type:Provider Instructions for Treatment How to Access Health Informa tion Online using Patient Portal and [employer] Apps Indication:Non-smoker Start:09-Aug-2020 Instruction Type:Patient Education Patient [...] tion Online using Patient Portal and [employer] Apps Indication:Non-smoker Start:30-Jan-2022 Instruction Type:Patient Education Patient Instructions Indication:BMI 37.0-37.9, adult Start:21-Jan-2022 Instruction Type:Provider Instructions for Treatment How to Access Health Informa tion Online using Patient Portal and [employer] Apps Indication:BMI 37.0-37.9, adult Start:21-Jan-2022 Instruction Type:Patient Education Patient Instructions Indication:Non-smoker Start:24-Apr-2021 Instruction Type:Provider Instructions for Treatment How to Access Health Informa tion Online using Patient Portal and [employer] Apps Indication:Non-smoker Start:24-Apr-2021 Instruction Type:Patient Education Patient Instructions Indication:Non-smoker Start:03-Mar-2021 Instruction Type:Provider Instructions for Treatment How to Access Health Informa tion Online using Patient Portal and [employer] Apps Indication:Non-smoker Start:03-Mar-2021 Instruction Type:Patient Education How to Access Health Informa tion Online using Patient Portal and [employer] Apps Indication:Non-smoker Start:30-Dec-2020 Instruction Type:Patient Education Patient Instructions Indication:Non-smoker Start:30-Dec-2020 Instruction Type:Provider Instructions for Treatment How to Access Health Informa tion Online using Patient Portal and [employer] Apps Indication:Non-smoker Start:09-Aug-2020 Instruction Type:Patient Education Patient [...] Informa tion Online using Patient Portal and [employer] Apps Indication:Non-smoker Start:30-Jan-2022 Instruction Type:Patient Education Patient Instructions Indication:BMI 37.0-37.9, adult Start:21-Jan-2022 Instruction Type:Provider Instructions for Treatment How to Access Health Informa tion Online using Patient Portal and [employer] Indication:BMI 37.0-37.9, adult Start:21-Jan-2022 Instruction Type:Patient Education Patient Instructions Indication:Non-smoker Start:24-Apr-2021 Instruction Type:Provider Instructions for Treatment How to Access Health Informa tion Online using Patient Portal and [employer] Apps Indication:Non-smoker Start:24-Apr-2021 Instruction Type:Patient Education Patient Instructions Indication:Non-smoker Start:03-Mar-2021 Instruction Type:Provider Instructions for Treatment How to Access Health Informa tion Online using Patient Portal and [employer] Apps Indication:Non-smoker Start:03-Mar-2021 Instruction Type:Patient Education How to Access Health Informa tion Online using Patient Portal and [employer] Apps Indication:Non-smoker Start:30-Dec-2020 Instruction Type:Patient Education Patient Instructions Indication:Non-smoker Start:30-Dec-2020 Instruction Type:Provider Instructions for Treatment How to Access Health Informa tion Online using Patient Portal and [employer] Apps Indication:Non-smoker Start:09-Aug-2020 Instruction Type:Patient Education Patient [...] tion Online using Patient Portal and [employer] Indication:Non-smoker Start:30-Jan-2022 Instruction Type:Patient Education Patient Instructions Indication:BMI 37.0-37.9, adult Start:21-Jan-2022 Instruction Type:Provider Instructions for Treatment How to Access Health Informa tion Online using Patient Portal and [employer] Apps Indication:BMI 37.0-37.9, adult Start:21-Jan-2022 Instruction Type:Patient Education Patient Instructions Indication:Non-smoker Start:24-Apr-2021 Instruction Type:Provider Instructions for Treatment How to Access Health Informa tion Online using Patient Portal and [employer] Apps Indication:Non-smoker Start:24-Apr-2021 Instruction Type:Patient Education Patient Instructions Indication:Non-smoker Start:03-Mar-2021 Instruction Type:Provider Instructions for Treatment How to Access Health Informa tion Online using Patient Portal and [employer] Apps Indication:Non-smoker Start:03-Mar-2021 Instruction Type:Patient Education How to Access Health Informa tion Online using Patient Portal and [employer] Apps Indication:Non-smoker Start:30-Dec-2020 Instruction Type:Patient Education Patient Instructions Indication:Non-smoker Start:30-Dec-2020 Instruction Type:Provider Instructions for Treatment How to Access Health Informa tion Online using Patient Portal and [employer] Apps Indication:Non-smoker Start:09-Aug-2020 Instruction Type:Patient Education Patient [...] tion Online using Patient Portal and [employer] Apps Indication:BMI 39.0-39.9,adult Start:06-Aug-2022 Instruction Type:Patient Education Patient Instructions Indication:Non-smoker Start:30-Jan-2022 Instruction Type:Provider Instructions for Treatment How to Access Health Informa tion Online using Patient Portal and [employer] Indication:Non-smoker Start:30-Jan-2022 Instruction Type:Patient Education Patient Instructions Indication:BMI 37.0-37.9, adult Start:21-Jan-2022 Instruction Type:Provider Instructions for Treatment How to Access Health Informa tion Online using Patient Portal and [employer] Apps Indication:BMI 37.0-37.9, adult Start:21-Jan-2022 Instruction Type:Patient Education Patient Instructions Indication:Non-smoker Start:24-Apr-2021 Instruction Type:Provider Instructions for Treatment How to Access Health Informa tion Online using Patient Portal and [employer] Apps Indication:Non-smoker Start:24-Apr-2021 Instruction Type:Patient Education Patient Instructions Indication:Non-smoker Start:03-Mar-2021 Instruction Type:Provider Instructions for Treatment How to Access Health Informa tion Online using Patient Portal and [employer] Indication:Non-smoker Start:03-Mar-2021 Instruction Type:Patient Education How to Access Health Informa tion Online using Patient Portal and [employer] Apps Indication:Non-smoker Start:30-Dec-2020 Instruction Type:Patient Education Patient Instructions Indication:Non-smoker Start:30-Dec-2020 Instruction Type:Provider Instructions for Treatment How to Access Health Informa tion Online using Patient Portal and [employer] Apps Indication:Non-smoker Start:09-Aug-2020 Instruction Type:Patient Education Patient [...] Informa tion Online using Patient Portal and [employer] Apps Indication:BMI 39.0-39.9,adult Start:06-Aug-2022 Instruction Type:Patient Education Patient Instructions Indication:Non-smoker Start:30-Jan-2022 Instruction Type:Provider Instructions for Treatment How to Access Health Informa tion Online using Patient Portal and [employer] Apps Indication:Non-smoker Start:30-Jan-2022 Instruction Type:Patient Education Patient Instructions Indication:BMI 37.0-37.9, adult Start:21-Jan-2022 Instruction Type:Provider Instructions for Treatment How to Access Health Informa tion Online using Patient Portal and [employer] Apps Indication:BMI 37.0-37.9, adult Start:21-Jan-2022 Instruction Type:Patient Education Patient Instructions Indication:Non-smoker Start:24-Apr-2021 Instruction Type:Provider Instructions for Treatment How to Access Health Informa tion Online using Patient Portal and [employer] Apps Indication:Non-smoker Start:24-Apr-2021 Instruction Type:Patient Education Patient Instructions Indication:Non-smoker Start:03-Mar-2021 Instruction Type:Provider Instructions for Treatment How to Access Health Informa tion Online using Patient Portal and [employer] Apps Indication:Non-smoker Start:03-Mar-2021 Instruction Type:Patient Education How to Access Health Informa tion Online using Patient Portal and [employer] Apps Indication:Non-smoker Start:30-Dec-2020 Instruction Type:Patient Education Patient Instructions Indication:Non-smoker Start:30-Dec-2020 Instruction Type:Provider Instructions for Treatment How to Access Health Informa tion Online using Patient Portal and [employer] Indication:Non-smoker Start:09-Aug-2020 Instruction Type:Patient Education Patient [...] tion Online using Patient Portal and [employer] Apps Indication:BMI 39.0-39.9,adult Start:06-Aug-2022 Instruction Type:Patient Education Patient Instructions Indication:Non-smoker Start:30-Jan-2022 Instruction Type:Provider Instructions for Treatment How to Access Health Informa tion Online using Patient Portal and [employer] Apps Indication:Non-smoker Start:30-Jan-2022 Instruction Type:Patient Education Patient Instructions Indication:BMI 37.0-37.9, adult Start:21-Jan-2022 Instruction Type:Provider Instructions for Treatment How to Access Health Informa tion Online using Patient Portal and [employer] Apps Indication:BMI 37.0-37.9, adult Start:21-Jan-2022 Instruction Type:Patient Education Patient Instructions Indication:Non-smoker Start:24-Apr-2021 Instruction Type:Provider Instructions for Treatment How to Access Health Informa tion Online using Patient Portal and [employer] Apps Indication:Non-smoker Start:24-Apr-2021 Instruction Type:Patient Education Patient Instructions Indication:Non-smoker Start:03-Mar-2021 Instruction Type:Provider Instructions for Treatment How to Access Health Informa tion Online using Patient Portal and [employer] Indication:Non-smoker Start:03-Mar-2021 Instruction Type:Patient Education How to Access Health Informa tion Online using Patient Portal and [employer] Apps Indication:Non-smoker Start:30-Dec-2020 Instruction Type:Patient Education Patient Instructions Indication:Non-smoker Start:30-Dec-2020 Instruction Type:Provider Instructions for Treatment How to Access Health Informa tion Online using Patient Portal and [employer] Indication:Non-smoker Start:09-Aug-2020 Instruction Type:Patient Education Patient [...] tion Online using Patient Portal and [employer] Apps Indication:BMI 39.0-39.9,adult Start:06-Aug-2022 Instruction Type:Patient Education Patient Instructions Indication:Non-smoker Start:30-Jan-2022 Instruction Type:Provider Instructions for Treatment How to Access Health Informa tion Online using Patient Portal and [employer] Apps Indication:Non-smoker Start:30-Jan-2022 Instruction Type:Patient Education Patient Instructions Indication:BMI 37.0-37.9, adult Start:21-Jan-2022 Instruction Type:Provider Instructions for Treatment How to Access Health Informa tion Online using Patient Portal and [employer] Apps Indication:BMI 37.0-37.9, adult Start:21-Jan-2022 Instruction Type:Patient Education Patient Instructions Indication:Non-smoker Start:24-Apr-2021 Instruction Type:Provider Instructions for Treatment How to Access Health Informa tion Online using Patient Portal and [employer] Apps Indication:Non-smoker Start:24-Apr-2021 Instruction Type:Patient Education Patient Instructions Indication:Non-smoker Start:03-Mar-2021 Instruction Type:Provider Instructions for Treatment How to Access Health Informa tion Online using Patient Portal and [employer] Apps Indication:Non-smoker Start:03-Mar-2021 Instruction Type:Patient Education How to Access Health Informa tion Online using Patient Portal and [employer] Apps Indication:Non-smoker Start:30-Dec-2020 Instruction Type:Patient Education Patient Instructions Indication:Non-smoker Start:30-Dec-2020 Instruction Type:Provider Instructions for Treatment How to Access Health Informa tion Online using Patient Portal and [employer] Apps Indication:Non-smoker Start:09-Aug-2020 Instruction Type:Patient Education Patient [...] Internal Medicine; [facility] Work Phone: reason for referral (narrative)No reason for referral information availableUniversity [facility] Work Phone: Family History No Family History Records FoundUnknown Family Member Name Dates Details Maternal Grandfather [...] ged heart Status:Active Mother Comments:heart disease Status:Active Relationship Condition Age at Onset Recorded Date/T lexy grandfather Cardiac disease Unknown mother Cardiac disease Unknown Unknown Family Member Name Dates Details Maternal [...] Dates Details Maternal Grandfather Comments:heart disease sonny ged heart Status:Active Mother Comments:heart disease Status:Active Unknown Family Member Name Dates Details Maternal Grandfather Comments:heart disease sonny ged heart Status:Active Mother Comments:heart disease Status:Active Relationship Condition Age at Onset Recorded Date/T lexy grandfather Cardiac disease Unknown Malignant neoplasm of colon Unknown mother Cardiac disease Unknown Instructions Name Dates Details How to access [...] Informa tion Online using Patient Portal and [employer] Apps Indication:Non-smoker Start:09-Aug-2020 Instruction Type:Patient Education Patient [...] Informa tion Online using Patient Portal and [employer] Apps Indication:Non-smoker Start:09-Aug-2020 Instruction Type:Patient Education Patient [...] Purpose Advance Directives No Advanced Directives Records Found Advance Directive Response Recorded Date/ Time Living Will No March 05 0 9:13am Power of Shaper Machine Hand No March 05 9:13am Advance Directive Response Recorded Date/ Time Living Will No March 05 0 8:13am Power of Shaper Machine Hand No March 05 8:13am Advance Directive Response Recorded Date/ Time Living Will No December 23, 2022 1 1:03am Power of Shaper Machine Hand No December 23, 2022 11:03am Advance Directive Response Recorded Date/ Time Living Will No December 23, 2022 1 0:03am Power of Shaper Machine Hand No December 23, 2022 10:03am Chief Complaint and Reason for Visit Chief Complaint SCREENING Chief Complaint J32.8 J33.0 Chief Complaint J32.8 J33.0 FESS W NAVIGATION Chief Complaint SCREENING Chief Complaint Admit Date FAMILY HX OF CARDIOVASCULAR DISEASE 2024 2:43pm FAMILY HX OF CARDIOVASCULAR DISEASE 2024 3:25pm Additional Source Comments INFORMATION SOURCE (unrecogn ized section and content) DATE CREATED AUTHOR 02/01/2021 [facility] DATE CREATED AUTHOR AUTHOR'S ORGANIZ ATION 07/21/2022 [facility] DATE CREATED AUTHOR AUTHOR'S ORGANIZ ATION 04/27/2025 [facility] Goals (unrecognized section and content) Goals may be documented in a n alternate sectionGoals may be documented in an alternate sectionGoals may be documented in an alternate sectionGoals may be documented in an alternate section Care Teams (unrecognized sec tion and content) Team Status: Active Member Role Status Dates No Primary Care Physician Family Provider Active Dr. Jazmin Mann DO Primary Care Provider Active Team Status: Inactive Member Role Status Dates Dr. Jazmin Mann DO Primary Care Provider Active Dr. Rufus Garcia MD Attending Provider, Referring Pr ovider Active Team Status: Inactive Member Role Status Dates Dr. Jazmin Mann DO Primary Care Pr ovider, Attending Provider, Referring Provider Active Team Status: Active Member Role/Relationship Status Dates Dr. Jazmin Mann DO Primary Care Provider Active Team Status: Inactive Member Role/Relationship Status Dates Dr. Jazmin Mann DO Primary Care Provider Active Start: March 13, 2025 End: March 13, 2025 Dr. Jazmin Mann DO Attending Provider Active Start: March 13, 2025 End: March 13, 2025 Dr. Jazmin Mann DO Referring Provider Active Start: March 13, 2025 End: March 13, 2025 Team Status: Active Member Role/Relationship Status Dates Dr. Jazmin Mann DO Primary Care Provider Active Start: March 13, 2025 Dr. Jazmin Mann DO Referring Provider Active Start: March 13, 2025 Dr. Jazmin Mann DO Other Provider Active S tart: March 13, 2025 Dr. Stuart Madison MD Attending Provider Active S tart: March 13, 2025 FOR RECORDS PERTAINING TO PATIENTS WHO ARE [...] BE BASED ON THE PRIMARY CLINICAL RECORDS. [facility]. provides no warranty or guarantee of the accuracy or completeness of information in this document.
[2025-05-02 13:08] LABS: HPV APTIMA, High Risk Negative (Negative)
== END | disposition home or self-care (01) ==
PROVIDERS: PCP Internal Medicine; Referring Provider Obstetrics & Gynecology; Visit Provider Obstetrics & Gynecology
DX: Z12.4 Encounter for screening for malignant neoplasm of cervix (principal)
CPT/HCPCS: 87624; 88175; G0145